=== PATIENT | male | born 1940 | race Caucasian/White ===

== ENCOUNTER → 2023-11-27 13:11 | Outpatient (REF) | payer MEDICARE, SELFPAY ==
[2023-11-27 14:06] LABS: Urine Albumin 3+ (Neg - Trace); Urine Bilirubin Negative (Negative); Urine Character Bloody (Clear); Urine Color Red; Urine Glucose Negative (Negative); Urine Ketone Negative (Negative); Urine Leukocyte 1+ (Negative); Urine Nitrite Negative (Negative); Urine Occult Blood 4+ (Negative); Urine Urobilinogen Negative (Neg - 1+)
[2023-11-27 14:15] LABS: Urine Red Blood Cell >100 /HPF (0-2)
== END ==
LOC: REG 13:11
PROVIDERS: ATTENDING PHYSICIAN Specialist; FAMILY PHYSICIAN Family Medicine; REFERRING PHYSICIAN Specialist
DX: N39.0 Urinary tract infection, site not specified (principal)
CPT/HCPCS: 81003; 81015

== ENCOUNTER 2023-12-19 06:31 | Day surgery (SDC) | payer MEDICARE, SELFPAY ==
[2023-12-11 13:39] VITALS: BMI 27.8
[2023-12-19] VITALS (11 sets, daily range): BP systolic 113–151; BP diastolic 55–73; BMI 27.8
[2023-12-19] MEDS: NORMOSOL-R 1000 IV (08:00)
== END 2023-12-19 11:48 | disposition home or self-care (01) ==
LOC: SDS 06:31
PROVIDERS: ATTENDING PHYSICIAN Specialist
DX: N13.1 Hydronephrosis with ureteral stricture, not elsewhere classified (principal); N18.6 End stage renal disease; C61 Malignant neoplasm of prostate; Z92.3 Personal history of irradiation
CPT/HCPCS: 52332; 74420; 76000; C2617; J1580

== ENCOUNTER 2023-12-20 17:57 | Inpatient (IN) | payer MEDICARE, SELFPAY ==
[2023-12-20 12:54] VITALS: BP 118/64
--- NOTE | 2023-12-20 14:53 | ED.GENMED ---
History of Present Illness
General
Chief Complaint: Fatigue
Source: patient and spouse
Exam Limitations: none
Time Seen by Provider: 12/20/23 14:51
Travel History
Have you had any contact with someone who has COVID-19?: No
Do you have any symptoms of coronavirus? Fever > 100 degrees, chills, cough, shortness of breath, sore throat, loss of taste or smell, muscle aches, or headache?: No
History of Present Illness
History of Present Illness:
Patient with a ureteral stent replaced yesterday. Received a dose of gentamicin periprocedurally. Developed fatigue weakness fever in the last 24 hours.
Past History
Past History
ED Past Medical History: Arrthythmia (Atrial fibrillation), Cancer (Metastatic prostate), HTN, Renal failure and Other (UTI, anemia, r ureteral fibrosis 2 XRT, Horseshoe kidney, Kidney stones)
ED Past Surgical History: Orthopedic (Right hip fracture), Urological (R ureteral stent 11/2020) and Other (AAA repair, Hiatel hernia repair ,Right fistula started)
Patient has exhibited threatening behavior?: No
PSI?: No
Social History
Tobacco: Former smoker
Alcohol: Occasional
Personal:
Living: with family
Family History
Family History: Other (Noncontributory)
Review of Systems
Review of Systems
All Other Systems: Not applicable
Constitutional: Reports fever, fatigue and chills
Respiratory: Reports cough (Chronic)
ABD/GI: Reports no symptoms
Phy Exam
Physical Exam
Physical Exam:
GENERAL: Alert and oriented in no apparent distress
EYE: Orbits normal.
NECK: Supple, no thyroid palpable
ENT: Pharynx without erythema
CARDIAC: Regular rate and rhythm without any obvious murmurs.
LUNGS: Clear breath sounds,normal
ABDOMEN: Soft, without focal tenderness or distention
NEUROLOGICAL: Alert and oriented , grossly non-focal
SKIN: Warm and dry, no rash or lesion, no discoloration, skin intact.
MUSCULOSKELETAL: No edema,no deformity.Good color. Shunt right arm. Good thrill
PSYCH: Normal and appropriate interaction.
Course
Orders/Labs/Results
Orders:
Orders
12/20/23 12:58
Electrocardiogram (*1) Urgent
Reason for Study: Other
Other Reason for Exam: syncope
12/20/23 12:59
EKG- Treatment ONCE
12/20/23 14:34
COVID-19 Antigen Urgent
Source: Nasal Swab
Influenza A+B Rapid Molecular Urgent
LORIE Source: Nasal Swab
Specimen Description:
12/20/23 14:52
Complete Blood Count/With Diff Urgent
Comprehensive Metabolic Panel Urgent
Lactic Acid Urgent
Blood Culture Urgent
LORIE Source: Blood/Venous
Specimen Description:
12/20/23 Dinner
Regular
At Your Request: Limited Participation
Does patient need a safe tray?: No
12/20/23 15:04
CXR2 [CR Chest - 2 Views ] Urgent
Comment:
Reason For Exam: cough fever
12/20/23 15:20
CT Abd/pel Without Iv Or Oral Urgent
Comment:
Reason For Exam: Recent right ureteral stent replacement. Fever.
12/20/23 15:36
Meropenem [Merrem] 1,000 mg IV NOW STA
12/20/23 15:51
Sterile Water [Sterile Water For Injection] 20 ml .ROUTE .STK-MED
12/20/23 17:11
Admit/Transfer Patient As Directed
Co-Sign Provider:
Level of Care: Inpatient admission
Assign to:: Telemetry
Physician / Group: [place]
Diagnosis: Syncope; UTI
Reason for Telemetry: Arrhythmia
Date to Stop Telemetry: 12/23/23
Time to Stop Telemetry: 11:00
Reason for Hospitalization: IV abx
Expected length of stay greater than two midnights?: Yes
ELOS- Estimated Length of Stay in days: 3
I certify the patient meets the requirements for IP care: Yes
12/20/23 17:19
Code Status As Directed
Resuscitation Status: Full Code
12/20/23 17:26
Urinalysis Reflex To Culture Urgent
Date Specimen was Collected: 12/20/23
Time Specimen was Collected: 17:24
Urine Microscopic Reflex Cult Urgent
Urine Culture Urgent
LORIE Source: U
Specimen Description:
Date Specimen was Collected: 12/20/23
Time Specimen was Collected: 17:24
12/20/23 17:43
Blood Culture Urgent
LORIE Source: Blood/Venous
Specimen Description:
12/20/23 17:48
Hemodialysis treatment As Directed
Treatment date:: 12/21/23
Treatment type: Hemodialysis
Ultrafiltration (kg): 0.5-1
Treatment time (duration): 3 hours 30 minutes
Use dialysis access:: AVF
Dialyzer:: Optiflux 160
Blood flow rate minimum: 350
Blood flow rate maximum: 400
Dialysis flow rate: 600 mL/min
Dialysate temperature: 37 degrees Celsius
Sodium (Na): 137
Potassium (K): 2
Calcium (Ca): 2.5
Bicarbonate (HCO3): 35
12/21/23 08:00
Albumin Human 25% 50 ml [Flexbumin 25% For Hemodialysis] 12.5 grams IV HD-Q1HPRN PRN
Mannitol 12.5 grams IV HD-Q1HPRN PRN
12/23/23 11:00
DC Protocol for Telemetry ONCE
Abnormal Lab Results
12/20/23 12/20/23
14:52 17:26
RBC 3.79 L 10^6/uL
(4.70-6.10)
Hgb 11.0 L g/dL
(13.0-18.0)
Hct 33.5 L %
(39.0-52.0)
MCHC 32.8 L g/dL
(33.0-37.0)
RDW 16.9 H %
(11.5-14.5)
Abs Immat Gran (auto) 0.2 H 10^3/uL
(0-0.05)
Absolute Neuts (auto) 6.6 H 10^3/uL
(1.4-6.5)
Absolute Lymphs (auto) 0.6 L 10^3/uL
(1.2-3.4)
Immature Gran % 2.0 H %
(0-0.5)
Neutrophils % 81.6 H %
(42.2-75.2)
Lymphocytes % 7.0 L %
(20.5-51.1)
Sodium 132 L mmol/L
(135-145)
Chloride 91 L mmol/L
(98-107)
BUN 34 H mg/dl
(9-20)
Creatinine 5.0 H* mg/dL
(0.7-1.3)
Glucose 124 H mg/dl
(70-99)
Lactic Acid 2.7 H mmol/L
(0.7-2.0)
Alkaline Phosphatase 163 H U/L
(38-126)
Ur Occult Blood Reflex 4+ A
(Negative)
Leukocyte Esterase Rfl 2+ A
(Negative)
Urine WBC (Reflex) >100 A /HPF
(0-5)
Urine Albumin (Reflex) 2+ A
(Neg - Trace)
12/20/23 14:52
12/20/23 14:52
Vital Signs
Initial and Last Documented VS:
Initial Vital Signs
Temp Pulse Resp BP Pulse Ox
99.2 F 103 20 118/64 97
12/20/23 12:54 12/20/23 12:54 12/20/23 12:54 12/20/23 12:54 12/20/23 12:54
Last Documented Vital Signs
Temp Pulse Resp BP Pulse Ox
99.8 F 91 16 131/61 95
12/20/23 15:19 12/20/23 17:27 12/20/23 17:27 12/20/23 17:27 12/20/23 17:27
*Radiology
Radiology exam reviewed: preliminary read by ED provider (Negative chest x-ray) and radiology read reviewed (Bilateral hydroureteronephrosis stent in position. No obstructing stone. Mild perinephric stranding)
*Pulse Oximetry
Patient hypoxic: no
*EKG
Interpreted by ED Provider?: Yes
Interpretation: abnormal
Comparison EKG: no changes
Heart Rate: 94
Rate: normal
Rhythm: sinus
Waterproof: left axis deviation
Interval: first degree heart block
QRS Pattern: normal QRS
Ischemia: no ischemia
*Critical Care Note
Total Time (30-74mins, 75-104mins- exclusive of procedures): Not Applicable
Data Reviewed
Review of Other/Old Records Reveals: Labs, Records, Operative Reports and Testing
Update Note
Update Note:
Discussed with urology and discussed with hospitalist
ED Attending Note
-
Portions of this chart may have been created with voice recognition software.� Occasional wrong word or��sound alike� substitutions may have occurred due to the inherent limitations of voice recognition software.
Discharge Plan
Departure
Patient Disposition: Admit
Date of Disposition: 12/20/23
Time of Disposition: 16:27
Presentation/result/management discussed w/ accepting MD/DO: Urology
Discharge Problem:
Possible early urosepsis, Recent ureteral stent replacement, History of renal failure
Interventions
Interventions:
*Risk Screen - Suicide Last Done: 12/20/23 12:54
*General Assessment Last Done: 12/20/23 12:54
*Neglect/Abuse Screening Last Done: 12/20/23 14:46
ED- Fall Risk Assessment Last Done: 12/20/23 15:30
*ED COVID-19 Vaccine History Last Done: 12/20/23 15:19
[2023-12-20 15:00] LABS: COVID-19 Antigen Negative (Negative)
[2023-12-20 15:11] LABS: % Basophils 0.7 % (0-2); % Monocytes 7.7 % (1.7-9.3); % Neutrophils 81.6 % (42.2-75.2); Absolute Basophils 0.1 10^3/uL (0-0.2); Absolute Eosinophils 0.1 10^3/uL (0-0.7); Absolute Immature Granulocytes 0.2 10^3/uL (0-0.05); Absolute Lymphocytes 0.6 10^3/uL (1.2-3.4); Absolute Monocytes 0.6 10^3/uL (0.1-0.6); Absolute Neutrophils 6.6 10^3/uL (1.4-6.5); Hematocrit 33.5 % (39.0-52.0); Mean Corp Hgb Conc. 32.8 g/dL (33.0-37.0); Mean Corpuscular Volume 88.4 fL (80.0-94.0); Mean Platelet Volume 10.3 fL (7.4-10.4); Nucleated Red Blood Cells % 0 % (-); Platelet Count 242 10^3/uL (130-400); Red Blood Cell Count 3.79 10^6/uL (4.70-6.10); Red Cell Dist. Width 16.9 % (11.5-14.5); White Blood Cell Count 8.1 10^3/uL (4.8-10.8)
[2023-12-20 15:14] LABS: Lactic Acid 2.7 mmol/L (0.7-2.0)
[2023-12-20 15:19] VITALS: BP 126/69
[2023-12-20 15:22] LABS: ALT (SGPT) 14 U/L (0-50); AST (SGOT) 20 U/L (17-59); Albumin 4.1 g/dl (3.5-5.0); Alkaline Phosphatase 163 U/L (38-126); Blood Urea Nitrogen 34 mg/dl (9-20); Calcium 8.8 mg/dl (8.4-10.2); Carbon Dioxide 28 mmol/L (22-30); Chloride 91 mmol/L (98-107); Glucose 124 mg/dl (70-99); Potassium 4.6 mmol/L (3.5-5.1); Sodium 132 mmol/L (135-145); Total Bilirubin 0.9 mg/dl (0.2-1.3); Total Protein 7.7 g/dl (6.3-8.2); eGFR 10.83
[2023-12-20] MEDS: MERREM 1000 MG IV (16:28)
[2023-12-20 17:27] VITALS: BP 131/61
--- NOTE | 2023-12-20 17:27 | HPS.HSE ---
Addendum entered and electronically signed by Gary Mathew MD 12/20/23 21:38:
I saw and examined the patient.
The STEF's note was reviewed and I agree with the note.
Comment:
83 y/o male with past medical history of metastatic prostate cancer s/p proctectomy and radiation, right ureteral stricture s/p right double-J stent yesterday (12/19/2023), ESRD on HD (Saturday, and Saturday), anemia of chronic disease,
recurrent UTIs, and atrial fibrillation who present to the ED today following a syncopal episode early this morning; patient had also had fever of 100.8 F at home. Patient says he was on the toilet when he passed out around the time he was
urinating. He admits to minimal oral intake yesterday following his procedure and did not each breakfast this morning. He denied abdominal pain, flank pain, and fever. He had dialysis on Saturday and Saturday, and is due tomorrow. His urologist
Jim advised him to go to the ER.
Vital Signs noted and are stable
Physical Exam
General: Not in acute distress
HEENT: Normocephalic
Respiratory: Clear to Auscultation Bilaterally
Cardiac: S1/S2 and Regular Rhythm
GI: Soft and Non Tender. Positive bowel sounds.
Musculoskeletal: No Cyanosis and No Edema
Skin: Warm and Dry
Neuro: Awake, Alert, Oriented and Nonfocal/grossly intact
Assessment/Plan
Fever at home-post Right Ureteral Stent Exchange
-Consulted Urology, recommendations appreciated
-Await urine and blood cultures
-Reviewed prior microbiology which revealed ESBL E. coli and Pseudomonas in the past - start Meropenem
Syncope, suspect volume depletion following OR procedure yesterday and fever (suspected possibly secondary to UTI)
-Give small amount of IVFs overnight
-Check orthostatic vital signs
-Monitor on telemetry
ESRD on HD
-Consult Nephrology, recommendations appreciated
Paroxysmal Atrial Fibrillation
-Continue Eliquis for anticoagulation
-Continue amiodarone
Chronic Hypotension
-Continue midodrine
DVT proph: Eliquis
Code Status: Full Code
Original Note:
Family Physician
-
Family Physician: Haile Mac
Chief Complaint
-
Fever and Syncope
History of Present Illness
Patient is an 83 y/o male with PMH of metastatic prostate cancer s/p proctectomy and radiation, right ureteral stricture s/p right double-J stent yesterday (12/19/2023), ESRD on HD, recurrent UTIs, and atrial fibrillation who present to the ED
today following a syncopal episode early this morning. Patient says he was on the toilet when he passed out. He says he did not have a bowel movement nor was he straining. He admits to minimal oral intake yesterday following his procedure and did
not each breakfast this morning. His reports elevated blood pressure and temperature of 100.8F at home. He denies abdominal pain, flank pain, and fever. He had dialysis on Saturday and Saturday, and is due tomorrow.
Medical History
Past Medical History
Past Medical History: Reports Other
Additional Past Medical History:
Paroxysmal atrial fibrillation
Chronic Hypotension
ESRD on HD
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
Anemia of chronic disease
Metastatic prostate cancer with metastasis to lymph nodes s/p radical prostatectomy and adjuvant hormonal and radiation therapy with history of radiation cystitis and radiation-induced ureteral strictures
Past Surgical History: Reports Other
Additional Past Surgical History:
Radical Prostatectomy
Hip Replacement
Right Kidney Stent
Right Hernia Repair
RUE AV Fistula
Social History
Tobacco: Non-smoker
Living: With Family
Family History
Family History: Not pertinent
Allergies / Home Medications
Allergies reflects when Allergies were last updated in [employer].
Home Medications with original date entered in [employer]
Allergy/Medication List:
Allergies
Allergy/AdvReac Type Severity Reaction Status Date / Time
iron [From Venofer] Allergy syncope/rigors Verified 12/20/23 12:54
'almost
passed out'
Home Medications
amiodarone 200 mg tablet 200 mg PO DAILY Arrhythmia 10/07/22
Lactobac no.2-Bifidobac no.1-S. thermo 112.5 billion cell capsule (Visbiome) 1 cap PO DAILY Gastrointestinal issue ##0 01/03/23
apixaban 2.5 mg tablet (Eliquis) 2.5 mg PO BID Blood clot prevention/tx #30 tabs 05/03/23
midodrine 10 mg tablet 10 mg PO TID Blood Pressure 08/22/23
guaifenesin 600 mg tablet, extended release 12 hr (Mucinex) 600 mg PO DAILYPRN PRN cough 12/16/23
esomeprazole magnesium 40 mg capsule,delayed release (Nexium) 40 mg PO DAILY 12/20/23
sennosides 8.6 mg-docusate sodium 50 mg tablet (Senna Plus) 1 tab-cap PO HS 12/20/23
sennosides 8.6 mg-docusate sodium 50 mg tablet (Senna Plus) 2 tab-cap PO DAILY 12/20/23
Review of Systems
-
A 12 point ROS was completed and negative except as noted: Yes
Constitutional: Reports Fever
Respiratory: Denies Cough or Trouble Breathing
Cardiac: Denies Chest Pain or Palpitations
Abdomen/GI: Denies Abdominal Pain, Nausea or Vomiting
Physical Exam
Vital Signs
Vital Signs
Temp Pulse Resp BP Pulse Ox
99.8 F 91 16 131/61 95
12/20/23 15:19 12/20/23 17:27 12/20/23 17:27 12/20/23 17:27 12/20/23 17:27
Physical Exam
General: No Apparent Distress and Comfortable
HEENT: Anicteric and Moist mucous membranes
Respiratory: Clear and Non Labored Respirations
Cardiac: S1/S2 and Regular Rhythm
GI: Soft and Non Tender
Rectal: Deferred by Provider
Genito-urinary: Other (No CVA tenderness)
Musculoskeletal: No Clubbing, No Cyanosis and No Edema
Skin: Warm and Dry
Neuro: Awake, Alert, Oriented and Nonfocal/grossly intact
Laboratory Results
-
12/20/23 14:52
12/20/23 14:52
Laboratory Results
Lactic Acid 2.7 mmol/L (0.7-2.0) H 12/20/23 14:52
Total Bilirubin 0.9 mg/dl (0.2-1.3) 12/20/23 14:52
AST 20 U/L (17-59) 12/20/23 14:52
ALT 14 U/L (0-50) 12/20/23 14:52
Alkaline Phosphatase 163 U/L (38-126) H 12/20/23 14:52
Data Reviewed
-
Lab Data: Labs Reviewed by me
Impression/Plan
-
Fever status-post Right Ureteral Stent Exchange
-Consult Urology
-Await urine and blood cultures
-Reviewed prior microbiology which revealed ESBL E. coli and Pseudomonas in the past - Start meropenum
Syncope, suspect volume depletion following OR procedure yesterday and fever
-Give small amount of IVFs overnight
-Check orthostatic vital signs
-Monitor on telemetry
ESRD on HD
-Consult Nephrology
Paroxysmal Atrial Fibrillation
-Continue Eliquis for anticoagulation
-Continue amiodarone
Chronic Hypotension
-Continue midodrine
DVT proph: Eliquis
Code Status: Full Code
--- NOTE | 2023-12-20 17:32 | W.CON.NEPH ---
Consultation
-
Date/Time Consultation Requested: 12/20/23 1700
Date/Time Consultation Performed: 12/20/23 1715
Requesting Provider: Gary Ching
Performing Provider: Diana Britton
Reason for Consultation: ESRD
Medical History
-
Chief Complaint: syncope
History of Present Illness:
�83-year-old male who dialyzes every Saturday, and Saturday at [facility]. He has a known history of anemia of chronic kidney disease and is maintained on LENIN therapy. He is chronically maintained on amiodarone and anticoagulated
with Eliquis for his paroxysmal AFib. He has a prior istory of prostate cancer and has undergone previous prostatectomy. He has a known history of an indwelling right ureteral stent, for which he intermittently undergoes exchange. He was electively
underwent right ureteral stent exchange yesterday and since procedure he was discharged home. noted him feeling weak and passed out for few secs in bathroom today hence brought him to the hospital. Reportedly he also had fever of 100.8F at
home. He denies any cp or sob, No abd pain or diarrhea. we were consulted for his end-stage renal disease management. His last HD was on Saturday, off schedule to fit the procedure. Scheduled to have HD tomorrow.
Past Medical History
1. ESRD, Saturday, , Saturday.
2. History of right ureteral stent with exchange.
3. Paroxysmal AFib.
4. Anemia.
5. Chronic hypotension with midodrine on dialysis.
6. History of prostate cancer with prostatectomy, XRT and hormonal
� � therapy.
7. History of ureteral reimplantation.
8. Radiation cystitis.
9. AAA repair in 2002.
10.Right total hip replacement.
11.History of horseshoe kidney with nephrolithiasis and chronic
� � hydro.
12.Right upper extremity AV fistula.
Past Surgical History: Other (multiple U stent exchanges , right UE AVF, AAA repair< prostatectomy )
Social History
Tobacco: Non-Smoker
Alcohol: None
Living: With Family
Employment: Retired
Family History
no CKD in family
Family History: Not Pertinent
Allergies / Home Medications
Allergy/AdvReac Type Severity Reaction Status Date / Time
iron [From Venofer] Allergy syncope/rigors Verified 12/20/23 12:54
'almost
passed out'
Medication Instructions Recorded Confirmed Type
amiodarone 200 mg tablet 200 mg PO DAILY Arrhythmia 10/07/22 12/20/23 History
Lactobac no.2-Bifidobac no.1-S. 1 cap PO DAILY Gastrointestinal 01/03/23 12/20/23 History
thermo 112.5 billion cell capsule issue ##0
(Visbiome)
apixaban 2.5 mg tablet (Eliquis) 2.5 mg PO BID Blood clot 05/03/23 12/20/23 Rx
prevention/tx #30 tabs
midodrine 10 mg tablet 10 mg PO TID Blood Pressure 08/22/23 12/20/23 History
guaifenesin 600 mg tablet, 600 mg PO DAILYPRN PRN cough 12/16/23 12/20/23 History
extended release 12 hr (Mucinex)
esomeprazole magnesium 40 mg 40 mg PO DAILY 12/20/23 12/20/23 History
capsule,delayed release (Nexium)
sennosides 8.6 mg-docusate sodium 1 tab-cap PO HS 12/20/23 12/20/23 History
50 mg tablet (Senna Plus)
sennosides 8.6 mg-docusate sodium 2 tab-cap PO DAILY 12/20/23 12/20/23 History
50 mg tablet (Senna Plus)
Physical Exam
Vital Signs
Vital Signs
Temp Pulse Resp BP Pulse Ox
99.8 F 91 16 131/61 95
12/20/23:19 12/20/23 17:27 12/20/23 17:27 12/20/23 17:27 12/20/23 17:27
Lab Results
WBC 8.1 10^3/uL (4.8-10.8) 12/20/23 14:52
RBC 3.79 10^6/uL (4.70-6.10) L 12/20/23 14:52
Hgb 11.0 g/dL (13.0-18.0) L 12/20/23 14:52
Hct 33.5 % (39.0-52.0) L 12/20/23 14:52
Plt Count 242 10^3/uL (130-400) 12/20/23 14:52
Sodium 132 mmol/L (135-145) L 12/20/23 14:52
Potassium 4.6 mmol/L (3.5-5.1) 12/20/23 14:52
Chloride 91 mmol/L (98-107) L 12/20/23 14:52
Carbon Dioxide 28 mmol/L (22-30) 12/20/23 14:52
BUN 34 mg/dl (9-20) H 12/20/23 14:52
Creatinine 5.0 mg/dL (0.7-1.3) H* 12/20/23 14:52
eGFR 10.83 12/20/23 14:52
Glucose 124 mg/dl (70-99) H 12/20/23 14:52
Calcium 8.8 mg/dl (8.4-10.2) 12/20/23 14:52
Albumin 4.1 g/dl (3.5-5.0) 12/20/23 14:52
CT abd /pelvis:
IMPRESSION:
1.� Horseshoe kidney with severe bilateral hydroureteronephrosis with right ureteral stent in position as described. No definite obstructing urinary calculi identified. Mild bilateral perinephric stranding and small focus of gas within the proximal
left renal collecting system may reflect upper urinary tract infection.
2. Mild to moderate diffuse colonic stool burden may reflect constipation.
3. Additional chronic changes as described.
Electronically signed by Jose Zhong 12/20/2023 4:15 PM
CXR:
FINDINGS:
Lungs: Stable bibasilar probable scarring. No convincing focal infiltrates. No pleural effusion or pneumothorax. Probable hiatal hernia redemonstrated.
Heart: Stable enlargement of the cardiomediastinal silhouette. No overt pulmonary vascular congestion.
Osseous structures: No acute abnormalities.
IMPRESSION:
No convincing acute cardiopulmonary process.
EKG:
SINUS RHYTHM WITH 1ST DEGREE A-V BLOCK
LEFT ANTERIOR FASCICULAR BLOCK
MINIMAL VOLTAGE CRITERIA FOR LVH, MAY BE NORMAL VARIANT ( R in aVL )
ABNORMAL ECG
WHEN COMPARED WITH ECG OF 11-DEC-2023 09:19,
NO SIGNIFICANT CHANGE WAS FOUND
�
Physical Exam
General: Awake, Alert, Oriented, AOx3, No Distress and Nontoxic
HEENT: EOMI and Anicteric
Respiratory: Clear, Normal Excursion and Nonlabored Respirations
Cardiac: S1/S2 and Regular Rate/Rhythm
Abdomen: Soft, Nontender and Nondistended
Musculoskeletal: No Cyanosis and No Edema
Skin: No Rash
Neuro: Nonfocal/Grossly Intact
Psych: Mood/afflect pleasant, Insight/judgement good and Appropriate
Assessment/Plan
-
Assessment:
Weakness, syncope on presentation
Fever [employer]
Right ureteral stent s/p exchange December 18
ESRD TTS at [facility]
PAF on anticoagulation and amiodarone
Anemia of CKD
Chronic hypotension requiring midodrine TID
History prostate cancer locally invasive with history prostatectomy/XRT/hormonal therapy
History ureteral reimplantation
Radiation cystitis
AAA repair 2002
Right total hip replacement
History of horseshoe kidney with nephrolithiasis and chronic hydronephrosis contributing to ESRD
Right upper extremity AV fistula
mild hyponatremia
Plan:
U stent exchange yesterday now presents with syncope and low grade fever
consulted,a bx per primary, known h/o ESBL E coli in the past
syncope-suspect post procedure, ok for gentle IVF tonight, Continue midodrine 10 mg TID
follow orthostatic, limit UF tomorrow
await for urine and Blood cultures
We will arrange hemodialysis tomorrow morning
d/w pt and primary
Data Reviewed
-
Radiology: Report Reviewed by me
CT Scan: Report Reviewed by me
Labs: Labs Reviewed by me
--- NOTE | 2023-12-20 17:34 | EDRN ---
Called [employer] to order green jello for pt for dinner - staff unable to provide until a diet order is placed. TT to provider to place a diet order.
[2023-12-20 17:37] LABS: Urine Albumin 2+ (Neg - Trace); Urine Bilirubin Negative (Negative); Urine Character Slightly Cloudy (Clear); Urine Color Yellow; Urine Glucose Negative (Negative); Urine Ketone Negative (Negative); Urine Leukocyte 2+ (Negative); Urine Nitrite Negative (Negative); Urine Occult Blood 4+ (Negative); Urine Urobilinogen Negative (Neg - 1+)
[2023-12-20 17:48] LABS: Urine Squamous Cell 0-2 /LPF (Few)
[2023-12-20 17:49] LABS: Urine White Cell >100 /HPF (0-5)
--- NOTE | 2023-12-20 17:59 | EDRN ---
Confirmed with [employer] diet order is seen and pt will get green jello for dinner
[2023-12-20 19:00] VITALS: BP 111/56
[2023-12-20 20:15] VITALS: BP 125/58; BP 131/61; BP 91/52; PULSE 102; PULSE 114; PULSE 94; BMI 27.1
[2023-12-20 20:31] VITALS: BMI 27.1
[2023-12-20] MEDS: NSS 1000 IV (20:38)
[2023-12-20] MEDS: ELIQUIS 2.5 MG PO (20:38)
[2023-12-20] MEDS: SENOKOT-S 1 TABLET PO (22:03)
[2023-12-20 23:33] VITALS: BP 110/56
[2023-12-21] VITALS (7 sets, daily range): BP systolic 91–145; BP diastolic 50–70; PULSE 77–112; BMI 27.0
[2023-12-21 07:48] LABS: Hematocrit 33.2 % (39.0-52.0); Hemoglobin 10.7 g/dL (13.0-18.0); Mean Corp Hgb Conc. 32.2 g/dL (33.0-37.0); Mean Corpuscular Hgb 28.4 pg (27.0-31.0); Mean Corpuscular Volume 88.1 fL (80.0-94.0); Platelet Count 226 10^3/uL (130-400); Red Blood Cell Count 3.77 10^6/uL (4.70-6.10); Red Cell Dist. Width 16.6 % (11.5-14.5); White Blood Cell Count 6.5 10^3/uL (4.8-10.8)
[2023-12-21 08:22] LABS: Blood Urea Nitrogen 41 mg/dl (9-20); Calcium 8.5 mg/dl (8.4-10.2); Carbon Dioxide 26 mmol/L (22-30); Chloride 94 mmol/L (98-107); Estimated Creatinine Clearance 9 ml/min; Glucose 99 mg/dl (70-99); Potassium 4.1 mmol/L (3.5-5.1); Sodium 131 mmol/L (135-145); eGFR 9.65
[2023-12-21] MEDS: PACERONE 200 MG PO (08:40)
[2023-12-21] MEDS: ProAmatine 10 MG PO ×3 (08:40→17:07)
[2023-12-21] MEDS: PROTONIX 40 MG PO (08:40)
[2023-12-21] MEDS: VISBIOME 1 CAP PO (08:40)
[2023-12-21] MEDS: ELIQUIS 2.5 MG PO ×2 (08:41→20:31)
[2023-12-21] MEDS: SENOKOT-S 2 TABLET PO (08:41)
--- NOTE | 2023-12-21 09:44 | W.PN.URO.CBU ---
Today's Communication / Plan
-
Await cultures
Expectant management
No need for imaging at this time
Assessment / Plan
-
Syncopal episode of unclear etiology 24 hours after right JJ stent exchange
No strong evidence of complicated UTI
Diagnosis
-
Date of Service: December 21, 2023
-
Patient Diagnosis:
Weakness and syncopal episode 25 hours after cystoscopy with right JJ stent exchange
History of advanced prostate cancer
Subjective
-
Feels fairly well today
No right flank pain
No nausea
No chills
Fatigue
Objective
-
Vital Signs
Temp Pulse Resp BP Pulse Ox
98.3 F 84 16 113/50 96
12/21/23 07:17 12/21/23 08:40 12/21/23 07:17 12/21/23 08:40 12/21/23 07:17
Intake and Output
12/20/23 12/21/23 12/22/23
06:59 06:59 06:59
Intake Total 970 / 970
Balance 970 / 970
Intake:
Oral fluids 420 / 420
IV fluids (Total) 550 / 550
Other:
How many times incontinent 1
MODERATE amount urine
How many times incontinent 1
SATURATED amount urine
Laboratory Results
12/21/23 07:29
12/21/23 07:29
Review of Systems
-
Constitutional: Fatigue
Respiratory: No Symptoms
Cardiac: No Symptoms
Abdomen/GI: No Symptoms
Neurological: No Symptoms
Physical Exam
-
General - well developed, well nourished, no acute distress
Abdomen - soft, non-tender, no CVAT
Skin - warm & dry with no rash
Neuro - AOx3, no motor deficits
--- NOTE | 2023-12-21 10:28 | W.PN.HOSP.TC ---
Today's Communication/Plan
-
History of ESBL E. coli in urine
Await urine and blood cultures
Orthostatic Hypotension - receive some IV fluids
Assessment / Plan
Assessment / Plan
Physical Exam
General: Not in acute distress
HEENT: Normocephalic
Respiratory: Clear to Auscultation Bilaterally
Cardiac: S1/S2 and Regular Rhythm
GI: Soft and Non Tender. Positive bowel sounds.
Musculoskeletal: No Cyanosis and No Edema
Skin: Warm and Dry
Neuro: Awake, Alert, Oriented and Nonfocal/grossly intact
Assessment/Plan
Fever at home-post Right Ureteral Stent Exchange
Known history of ESBL E. coli
-Consulted Urology, recommendations appreciated -- no need for imaging at this time, as per urology
-Await urine and blood cultures
-Reviewed prior microbiology which revealed ESBL E. coli and Pseudomonas in the past - start Meropenem
Syncope, suspect volume depletion following OR procedure yesterday and fever (suspected possibly secondary to UTI)
Orthostatic Hypotension
-Give small amount of IVFs overnight
-Check orthostatic vital signs
-Monitor on telemetry
-Echocardiogram
ESRD on HD
-Consult Nephrology, recommendations appreciated
Paroxysmal Atrial Fibrillation
-Continue Eliquis for anticoagulation
-Continue amiodarone
Chronic Hypotension
-Continue midodrine
DVT proph: Eliquis
Code Status: Full Code
Anticipated Discharge: > 48 hours
Subjective/Interval History
-
Date of Service: December 21, 2023
Patient was seen and examined. He denied any new symptoms or complaints and said he was doing okay.
Objective Data
-
Labs:
Laboratory Results
12/21/23
07:29
WBC 6.5
Hgb 10.7 L
Hct 33.2 L
Plt Count 226
Sodium 131 L
Potassium 4.1
Chloride 94 L
Carbon Dioxide 26
BUN 41 H
Creatinine 5.5 H*
Glucose 99
Calcium 8.5
Vital Signs:
Vital Signs
Temp Pulse Resp BP Pulse Ox
98.3 F 84 16 113/50 96
12/21/23 07:17 12/21/23 08:40 12/21/23 07:17 12/21/23 08:40 12/21/23 07:17
I&O
12/20/23 12/21/23 12/22/23
06:59 06:59 06:59
Intake Total 970 / 970
Balance 970 / 970
--- NOTE | 2023-12-21 12:49 | CM ---
Patient seen at bedside. patient stated that he had not had any changes to his past DME and physician PCP is the same, Dr. Mac. Patient still uses the [facility] in [place] and he has no past SNF history, patient does not remember the name
of the home health care that he had had previously and has also had home IV infusion, DME includes: a shower chair, r/s bars in the bathroom, & a stairglide
Pt is also on HD and is scheduled , , & at [facility]. Home is a 2 story home with one step to enter, and he lives with significant other. CM will continue to follow for discharge planning needs.
Plan; home with family, continue to follow with [facility] and will need to update them
[2023-12-21 13:13] LABS: Troponin I 0.013 ng/ml
--- NOTE | 2023-12-21 15:14 | W.PN.NEPH.HD ---
Assessment
-
pt seen during HD
vitals stable on midodrine
no sig wt gain, UF to bring to EDW
U cx neg, bld cx neg D1
abx per primary
AVF functions well
d/c IVF, neg orthostatics
Progress Note - Hemodialysis
-
Date of Service: December 21, 2023
Duration: 30 minutes and 3 hours
Potassium Bath: 3
Calcium Bath: 2.5
Opti-Dialyzer: 160
Ultrafiltration: Other (0.5-1kg)
Blood Flow: 400
Dialysate Flow: 600
Heparin: no
EPO: no
[2023-12-21] MEDS: DULCOLAX 10 MG RECTAL (17:42)
--- NOTE | 2023-12-21 18:42 | PTCARENOTE ---
Pt pulled cord in bathroom and was found with a moderate amount of bloody urine on the floor beneath him. Urology made aware, pt resting comfortably, no new orders at this time.
[2023-12-21 20:21] LABS: Troponin I < 0.012 ng/ml
[2023-12-21] MEDS: STERILE WATER FOR INJECTION 10 ML IV (20:31)
[2023-12-21] MEDS: MERREM 500 MG IV (20:31)
[2023-12-21] MEDS: SENOKOT-S 1 TABLET PO (21:58)
[2023-12-22] VITALS (7 sets, daily range): BP systolic 108–138; BP diastolic 48–66; PULSE 80–93; BMI 27.0; BMI 26.7
[2023-12-22 01:25] LABS: Troponin I 0.016 ng/ml
[2023-12-22 08:09] LABS: % Eosinophils 2.6 % (0-6); % Immature Granulocytes 3.7 % (0-0.5); % Lymphocytes 11.7 % (20.5-51.1); Absolute Basophils 0.1 10^3/uL (0-0.2); Absolute Eosinophils 0.2 10^3/uL (0-0.7); Absolute Immature Granulocytes 0.3 10^3/uL (0-0.05); Absolute Lymphocytes 0.9 10^3/uL (1.2-3.4); Absolute Monocytes 0.9 10^3/uL (0.1-0.6); Absolute Neutrophils 5.6 10^3/uL (1.4-6.5); Hematocrit 34.2 % (39.0-52.0); Mean Corp Hgb Conc. 32.2 g/dL (33.0-37.0); Mean Corpuscular Hgb 28.7 pg (27.0-31.0); Mean Corpuscular Volume 89.3 fL (80.0-94.0); Nucleated Red Blood Cells % 0 % (-); Platelet Count 231 10^3/uL (130-400); Red Blood Cell Count 3.83 10^6/uL (4.70-6.10); Red Cell Dist. Width 16.6 % (11.5-14.5); White Blood Cell Count 8.1 10^3/uL (4.8-10.8)
--- NOTE | 2023-12-22 08:37 | W.PN.URO.CBU ---
Today's Communication / Plan
-
Stable urologically
Ongoing evaluation of syncope
Will sign off
Assessment / Plan
-
Syncopal episode of unclear etiology 24 hours after right JJ stent exchange
No strong evidence of complicated UTI: urine and blood cultures negative
Diagnosis
-
Date of Service: December 22, 2023
-
Patient Diagnosis:
Weakness and syncopal episode 25 hours after cystoscopy with right JJ stent exchange
History of advanced prostate cancer
---
Blood and urine cultures negative
Subjective
-
No flank pain
No dysuria
Objective
-
Vital Signs
Temp Pulse Resp BP Pulse Ox
98.5 F 75 16 122/56 96
12/22/23 07:51 12/22/23 07:51 12/22/23 07:51 12/22/23 07:51 12/22/23 07:51
Intake and Output
12/21/23 12/22/23 12/23/23
06:59 06:59 06:59
Intake Total 970 / 970 1270 / 1270
Output Total 1000 / 1000
Balance 970 / 970 270 / 270
Intake:
Oral fluids 420 / 420 820 / 820
IV fluids (Total) 550 / 550 450 / 450
Output:
Urine, Voided 1000 / 1000
Other:
Number of approximated MODERATE 2
amounts of urine
How many times incontinent 1
MODERATE amount urine
How many times incontinent 1
SATURATED amount urine
Number of unmeasured liquid
stools
Rectum 1
Laboratory Results
12/22/23 07:55
Review of Systems
-
Constitutional: No Symptoms
Respiratory: No Symptoms
Cardiac: No Symptoms
Abdomen/GI: No Symptoms
: Bleeding
Neurological: No Symptoms
Physical Exam
-
General -no acute distress
Abdomen - soft, non-tender
Skin - warm & dry with no rash
Neuro - AOx3, no motor deficits
[2023-12-22] MEDS: SENOKOT-S 2 TABLET PO (08:50)
[2023-12-22] MEDS: PROTONIX 40 MG PO (08:50)
[2023-12-22] MEDS: VISBIOME 1 CAP PO (08:50)
[2023-12-22] MEDS: ELIQUIS 2.5 MG PO ×2 (08:50→19:50)
[2023-12-22] MEDS: ProAmatine 10 MG PO ×3 (08:51→17:17)
[2023-12-22] MEDS: PACERONE 200 MG PO (08:51)
[2023-12-22 08:59] LABS: Blood Urea Nitrogen 31 mg/dl (9-20); Calcium 8.9 mg/dl (8.4-10.2); Carbon Dioxide 28 mmol/L (22-30); Chloride 96 mmol/L (98-107); Estimated Creatinine Clearance 13 ml/min; Glucose 103 mg/dl (70-99); Potassium 4.1 mmol/L (3.5-5.1); Sodium 136 mmol/L (135-145); eGFR 15.54
--- NOTE | 2023-12-22 12:38 | CON.ID ---
Consultation
-
Date/Time Consultation Requested: 12/22/2023, 0741
Date/Time Consultation Performed: 12/22/2023, 1240
Requesting Provider: Dr. Gary Mathew
Performing Provider: Dr. Hansa Sheets
Reason for Consultation: Syncope, UA+ but Ucx neg
Chief Complaint / Past History
Chief Complaint
Passed out
History of Present Illness
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
stent exchange minerva 12/18. He received pre-op gentamicin and levofloxacin. He was discharged home same day. That evening he felt sleepy. The next morning he got up and sat on the toilet then passed out. He could not recall events. Reported temp
100.8. He denies dizziness, chills, or sweats. He came to ED 12/19. He was started on meropenem pending labs. Blood cx neg. Ucx neg. Pt reports BP drops when he stands up. He states he is drinking fluids.
Past History
Additional Past Medical History:
ESRD�HD via RUE AV fistula
HTN
Paroxysmal A-fib
Metastatic prostate cancer s/p rad prostatectomy, XRT and hormone therapy
Radiation cystitis
Horseshoe kidney
Nephrolithiasis/chronic obstructive uropathy with chronic right ureteral stent
Left ureteral stricture
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
AAA repair
Hiatal hernia repair
Right hip replacement s/p fall with fracture s/p revision/ORIF at [facility] (09/28)
Allergy History:
iron [From Venofer] Allergy (Verified 12/20/23 12:54)
syncope/rigors 'almost passed out'
Medications Reviewed: Yes
Current Antibiotics:
meropenem d3
Social History
Tobacco: Non-Smoker
Alcohol: None
Drug: None
Personal:
Living: With Family
Family History
Family History: Not Pertinent
Review of Systems
Review of Systems
General: Negative Chills
HEENT: Negative Headache or Pharyngitis
Respiratory: Negative Dyspnea or Cough
Gasteroenterology: Other (no diarrhea); Negative Nausea or Vomiting
Genital / Urological: Negative Dysuria or Flank Pain
Endocrine: Negative Weakness
Neurological: Negative Headache or Dizziness
All systems: All other systems were reviewed and were negative
Vital Signs
Temp Pulse Resp BP Pulse Ox
98.1 F 73 16 128/61 98
12/22/23 11:01 12/22/23 11:01 12/22/23 11:01 12/22/23 11:01 12/22/23 11:01
Physical Exam
Physical Exam
Constitutional: No Acute Distress and Comfortable
Eyes: No Conjunctival Hemorrhage and Sclera Anicteric
Cardiovascular: Regular Rate and S1/S2
Pulmonary: Clear
Gastrointestinal: Soft, Non Tender, Non Distended and Normal Bowel Sounds
Genito-Urinary: Negative CVA Tenderness
Extremities: Negative Edema
Neurological: AO x 3
Lab / Diagnostic Study Results
12/22/23 07:55
12/22/23 07:55
Abs Immat Gran (auto) 0.3 10^3/uL (0-0.05) H 12/22/23 07:55
Absolute Neuts (auto) 5.6 10^3/uL (1.4-6.5) 12/22/23 07:55
Absolute Lymphs (auto) 0.9 10^3/uL (1.2-3.4) L 12/22/23 07:55
Absolute Monos (auto) 0.9 10^3/uL (0.1-0.6) H 12/22/23 07:55
Absolute Basos (auto) 0.1 10^3/uL (0-0.2) 12/22/23 07:55
Immature Gran % 3.7 % (0-0.5) H 12/22/23 07:55
Neutrophils % 70.0 % (42.2-75.2) 12/22/23 07:55
Lymphocytes % 11.7 % (20.5-51.1) L 12/22/23 07:55
Monocytes % 11.0 % (1.7-9.3) H 12/22/23 07:55
Eosinophils % 2.6 % (0-6) 12/22/23 07:55
Basophils % 1.0 % (0-2) 12/22/23 07:55
Lactic Acid 2.7 mmol/L (0.7-2.0) H 12/20/23 14:52
Ur Squamous Epith Cells 0-2 /LPF (Few) 12/20/23 17:26
Microbiology Results
Micro:
12/20/23 20:36 MRSA Screen - Final
Nose No Methicillin Resistant Staphylococcus aureus isolated.
12/20/23 17:43 Blood Culture - Preliminary
Blood/Venous No Growth in 24 hours- Final report to follow
12/20/23 14:52 Blood Culture - Preliminary
Blood/Venous No Growth in 24 hours- Final report to follow
12/20/23 17:26 Urine Culture - Final
Urine NO GROWTH
12/20/23 14:34 Influenza Types A & B (MONAE) - Final
Nasal Swab Negative for Influenza A & B, NAAT
Negative results must be combined with clinical observations
and patient history.
Nucleic Acid Amplification test (NAAT)performed on the
[employer] platform.
12/20/23 CT a/p: Horseshoe kidney with severe bilateral hydroureteronephrosis with right ureteral stent in position as described. No definite obstructing urinary calculi identified. Mild bilateral perinephric stranding and small focus of gas within
the proximal left renal collecting system may reflect upper urinary tract infection.
Assessment / Plan
# Pyuria - does not equate UTI.
# Post-right ureter stent exchange 12/18.
- Bacteremia ruled out.
-Ucx neg.
-DC meropenem.
# Syncope
-Work up as per hospitalist.
ID will sign off.
--- NOTE | 2023-12-22 12:45 | W.PN.NEPH.PH ---
Today's Communication / Plan
-
gentle IVF
Assessment/Plan
-
Assessment:
Weakness, syncope on presentation
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
Right ureteral stent s/p exchange December 18
ESRD TTS at [facility]
PAF on anticoagulation and amiodarone
Anemia of CKD
Chronic hypotension requiring midodrine TID
History prostate cancer locally invasive with history prostatectomy/XRT/hormonal therapy
History ureteral reimplantation
Radiation cystitis
AAA repair 2002
Right total hip replacement
History of horseshoe kidney with nephrolithiasis and chronic hydronephrosis contributing to ESRD
Right upper extremity AV fistula
mild hyponatremia
Plan:
U stent exchange 12/18 presents with syncope and low grade fever
cultures so far are negative , abx per primary
fell in the bathroom and noted +orthostatic
will likely need to raise EDW
give gentle IVF NS 500cc
recheck ortho vitals tomorrow , cont high dose midodrine
If orthostatic improve likely d/c tomorrow
d/w pt
-
-
Date of Service: December 22, 2023
CC / HPI / ROS
-
Chief Complaint:
ESRD
History of Present Illness:
competed HD yesterday
fell in the bathroom not sure if has LOC
+orthostatic but denies any prodromal symp
Review of Systems:
no n/v
no cp or sob
Labs
-
Labs:
WBC 8.1 10^3/uL (4.8-10.8) 12/22/23 07:55
RBC 3.83 10^6/uL (4.70-6.10) L 12/22/23 07:55
Hgb 11.0 g/dL (13.0-18.0) L 12/22/23 07:55
Hct 34.2 % (39.0-52.0) L 12/22/23 07:55
Plt Count 231 10^3/uL (130-400) 12/22/23 07:55
Sodium 136 mmol/L (135-145) 12/22/23 07:55
Potassium 4.1 mmol/L (3.5-5.1) 12/22/23 07:55
Chloride 96 mmol/L (98-107) L 12/22/23 07:55
Carbon Dioxide 28 mmol/L (22-30) 12/22/23 07:55
BUN 31 mg/dl (9-20) H 12/22/23 07:55
Creatinine 3.7 mg/dL (0.7-1.3) H 12/22/23 07:55
eGFR 15.54 12/22/23 07:55
Glucose 103 mg/dl (70-99) H 12/22/23 07:55
Calcium 8.9 mg/dl (8.4-10.2) 12/22/23 07:55
Albumin 4.1 g/dl (3.5-5.0) 12/20/23 14:52
Physical Exam
-
Vital Signs:
Vital Signs
Temp Pulse Resp BP Pulse Ox
98.1 F 73 16 128/61 98
12/22/23 11:01 12/22/23 11:01 12/22/23 11:01 12/22/23 11:01 12/22/23 11:01
Cardiovascular:: Regular rate and rhythm
Respiratory:: Bilateral: CTA
Lung Excursion:: Normal
Abdomen:: Nontender and Soft
Extremity Edema:: None: Bilateral:
Brewster Catheter: No
[2023-12-22] MEDS: NSS 500 IV (12:54)
--- NOTE | 2023-12-22 17:41 | W.PN.HOSP.TC ---
Addendum entered and electronically signed by Gary Mathew MD 12/22/23 18:01:
Nurse just texted me saying that patient used his bedside commode yesterday, did not walk to the bathroom - he had used the toilet during day shift yesterday and nurse at that time found him straining on the toilet with bloody urine output --
patient was never found to have fallen on the floor.
Original Note:
Today's Communication/Plan
-
Patient slid off toilet and slid onto the floor last night
Bloody urine reported on nurse note at the time of that sliding onto the floor -- check FOBT and UA
Additional gentle IV fluids for orthostatic hypotension
Assessment / Plan
Assessment / Plan
Physical Exam
General: Not in acute distress
HEENT: Normocephalic
Respiratory: Clear to Auscultation Bilaterally
Cardiac: S1/S2 and Regular Rhythm
GI: Soft and Non Tender. Positive bowel sounds.
Musculoskeletal: No Cyanosis and No Edema
Skin: Warm and Dry
Neuro: Awake, Alert, Oriented and Nonfocal/grossly intact
Assessment/Plan
Fever at home-post Right Ureteral Stent Exchange
Known history of ESBL E. coli
-Consulted Urology, recommendations appreciated -- no need for imaging at this time, as per urology
-ID consulted, recommendations appreciated
-Urine culture with no growth
-Blood culture with no growth so far
-Merrem discontinued
-Reviewed prior microbiology which revealed ESBL E. coli and Pseudomonas in the past
Syncope, suspect volume depletion following OR procedure yesterday and fever (suspected possibly secondary to UTI)
Orthostatic Hypotension
Patient sliding onto floor on December 21, 2023 evening
-Additional gentle IVF NS 500cc on December 22, 2023
-Recheck orthostatic vital signs on December 22, 2023 -- if improves, then can discharge
-Monitor on telemetry
-Echocardiogram pending
Bloody Urine reported on nurse note from December 21, 2023
-Check repeat UA and fecal occult
ESRD on HD
-Consult Nephrology, recommendations appreciated
Paroxysmal Atrial Fibrillation
-Continue Eliquis for anticoagulation
-Continue amiodarone
Chronic Hypotension
-Continue midodrine
DVT proph: Eliquis
Code Status: Full Code
Anticipated Discharge: 24 - 48 hours
Subjective/Interval History
-
Date of Service: December 22, 2023
Patient was seen and examined. Last night he reported sliding down onto the bathroom floor from the toilet and reportedly there was some bloody urine on the floor. He is not sure whether he passed out. Nurse reported he may have been straining in
the toilet but patient denied straining.
Objective Data
-
Labs:
Laboratory Results
12/22/23
07:55
WBC 8.1
Hgb 11.0 L
Hct 34.2 L
Plt Count 231
Sodium 136
Potassium 4.1
Chloride 96 L
Carbon Dioxide 28
BUN 31 H
Creatinine 3.7 H
Glucose 103 H
Calcium 8.9
Vital Signs:
Vital Signs
Temp Pulse Resp BP Pulse Ox
98.7 F 71 16 110/48 98
12/22/23 15:01 12/22/23 17:17 12/22/23 15:01 12/22/23 17:17 12/22/23 15:01
I&O
12/21/23 12/22/23 12/23/23
06:59 06:59 06:59
Intake Total 970 / 970 1270 / 1270
Output Total 1000 / 1000
Balance 970 / 970 270 / 270
[2023-12-22] MEDS: STERILE WATER FOR INJECTION IV (19:50)
[2023-12-22 20:11] LABS: Urine Albumin 2+ (Neg - Trace); Urine Bilirubin Negative (Negative); Urine Character Very Cloudy (Clear); Urine Color Yellow; Urine Glucose Negative (Negative); Urine Ketone Negative (Negative); Urine Leukocyte 2+ (Negative); Urine Nitrite Negative (Negative); Urine Occult Blood 4+ (Negative); Urine Specific Gravity 1.015 (<1.030); Urine Urobilinogen Negative (Neg - 1+)
[2023-12-22 20:22] LABS: Urine White Cell >100 /HPF (0-5)
[2023-12-22] MEDS: SENOKOT-S 1 TABLET PO (21:45)
[2023-12-23 03:43] VITALS: BP 119/54
[2023-12-23 06:00] VITALS: BMI 26.9
[2023-12-23 07:17] LABS: Hematocrit 29.9 % (39.0-52.0); Hemoglobin 9.5 g/dL (13.0-18.0); Mean Corp Hgb Conc. 31.8 g/dL (33.0-37.0); Mean Corpuscular Hgb 28.6 pg (27.0-31.0); Mean Corpuscular Volume 90.1 fL (80.0-94.0); Mean Platelet Volume 10.6 fL (7.4-10.4); Platelet Count 245 10^3/uL (130-400); Red Blood Cell Count 3.32 10^6/uL (4.70-6.10); Red Cell Dist. Width 16.5 % (11.5-14.5); White Blood Cell Count 6.9 10^3/uL (4.8-10.8)
[2023-12-23 07:49] VITALS: BP 120/51
[2023-12-23] MEDS: PROTONIX 40 MG PO (08:04)
[2023-12-23] MEDS: SENOKOT-S 2 TABLET PO (08:05)
[2023-12-23] MEDS: VISBIOME 1 CAP PO (08:05)
[2023-12-23] MEDS: ELIQUIS 2.5 MG PO (08:05)
[2023-12-23] MEDS: PACERONE 200 MG PO (08:05)
[2023-12-23] MEDS: ProAmatine 10 MG PO ×2 (08:06→12:33)
[2023-12-23 08:08] LABS: Blood Urea Nitrogen 39 mg/dl (9-20); Calcium 8.2 mg/dl (8.4-10.2); Carbon Dioxide 26 mmol/L (22-30); Chloride 100 mmol/L (98-107); Estimated Creatinine Clearance 10 ml/min; Glucose 85 mg/dl (70-99); Potassium 4.1 mmol/L (3.5-5.1); Sodium 134 mmol/L (135-145); eGFR 11.09
[2023-12-23 08:13] VITALS: BP 114/64; BP 121/61; BP 134/63; PULSE 70; PULSE 75; PULSE 90
[2023-12-23 08:23] LABS: Cortisol, Random 18.3 ug/dl
--- NOTE | 2023-12-23 10:44 | W.PN.NEPH.PH ---
Today's Communication / Plan
-
likley discharge today
will raise edw by 1kg
maintain midodrine
Assessment/Plan
-
Assessment:
Weakness, syncope on presentation
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
Right ureteral stent s/p exchange December 18
ESRD TTS at [facility]
PAF on anticoagulation and amiodarone
Anemia of CKD
Chronic hypotension requiring midodrine TID
History prostate cancer locally invasive with history prostatectomy/XRT/hormonal therapy
History ureteral reimplantation
Radiation cystitis
AAA repair 2002
Right total hip replacement
History of horseshoe kidney with nephrolithiasis and chronic hydronephrosis contributing to ESRD
Right upper extremity AV fistula
mild hyponatremia
Plan:
Ureter stent exchange 12/18 presents with syncope and low grade fever
cultures so far are negative , abx per primary
fell in the bathroom and noted +orthostatic
will need to raise EDW by 1kg as outpatient
continue high dose midodrine
likley discharge today if echo ok
-
-
Date of Service: December 23, 2023
CC / HPI / ROS
-
Chief Complaint:
ESRD
History of Present Illness:
competed HD saturday
no falls today
+orthostatic but denies any prodromal symp
Review of Systems:
no n/v
no cp or sob
Labs
-
Labs:
WBC 6.9 10^3/uL (4.8-10.8) 12/23/23 05:27
RBC 3.32 10^6/uL (4.70-6.10) L 12/23/23 05:27
Hgb 9.5 g/dL (13.0-18.0) L 12/23/23 05:27
Hct 29.9 % (39.0-52.0) L 12/23/23 05:27
Plt Count 245 10^3/uL (130-400) 12/23/23 05:27
Sodium 134 mmol/L (135-145) L 12/23/23 05:27
Potassium 4.1 mmol/L (3.5-5.1) 12/23/23 05:27
Chloride 100 mmol/L (98-107) 12/23/23 05:27
Carbon Dioxide 26 mmol/L (22-30) 12/23/23 05:27
BUN 39 mg/dl (9-20) H 12/23/23 05:27
Creatinine 4.9 mg/dL (0.7-1.3) H* 12/23/23 05:27
eGFR 11.09 12/23/23 05:27
Glucose 85 mg/dl (70-99) 12/23/23 05:27
Calcium 8.2 mg/dl (8.4-10.2) L 12/23/23 05:27
Albumin 4.1 g/dl (3.5-5.0) 12/20/23 14:52
Physical Exam
-
Vital Signs:
Vital Signs
Temp Pulse Resp BP Pulse Ox
97.9 F 66 16 120/51 97
12/23/23 07:49 12/23/23 08:06 12/23/23 07:49 12/23/23 08:06 12/23/23 07:49
Cardiovascular:: Regular rate and rhythm
Respiratory:: Bilateral: CTA
Lung Excursion:: Normal
Abdomen:: Nontender
Bowel Sounds:: Normal
Extremity Edema:: None: Bilateral:
Brewster Catheter: No
--- NOTE | 2023-12-23 10:49 | W.PN.HOSP.TC ---
Addendum entered and electronically signed by Padmaja Piper MD 12/23/23 15:43:
Addendum
Result of echocardiogram was shown to the and patient. No significant changes from prior echocardiogram. Patient was seen by lag screwer, okay for discharge
Total discharge time spent to see the patient, examine the patient on the floor, review data and lab results, discuss discharge plan with the patient, nursing staff around 65 minutes
Original Note:
Today's Communication/Plan
-
.
Assessment / Plan
Assessment / Plan
Physical Exam
General: Not in acute distress
HEENT: Normocephalic
Respiratory: Clear to Auscultation Bilaterally
Cardiac: S1/S2 and Regular Rhythm
GI: Soft and Non Tender. Positive bowel sounds.
Musculoskeletal: No Cyanosis and No Edema
Skin: Warm and Dry
Neuro: Awake, Alert, Oriented and Nonfocal/grossly intact
Assessment/Plan
Fever at home-post Right Ureteral Stent Exchange
Known history of ESBL E. coli
-Consulted Urology, recommendations appreciated -- no need for imaging at this time, as per urology
-ID consulted, recommendations appreciated
-Urine culture with no growth
-Blood culture with no growth so far
-Merrem discontinued
-Reviewed prior microbiology which revealed ESBL E. coli and Pseudomonas in the past
Syncope, suspect volume depletion following OR procedure yesterday and fever (suspected possibly secondary to UTI)
Orthostatic Hypotension
Patient sliding onto floor on December 21, 2023 evening
-Additional gentle IVF NS 500cc on December 22, 2023
-Recheck orthostatic vital signs on December 22, 2023 -- if improves, then can discharge
-Monitor on telemetry
-Echocardiogram pending
Bloody Urine reported on nurse note from December 21, 2023
-Check repeat UA and fecal occult
ESRD on HD
-Consult Nephrology, recommendations appreciated
Paroxysmal Atrial Fibrillation
-Continue Eliquis for anticoagulation
-Continue amiodarone
Chronic Hypotension
-Continue midodrine
DVT proph: Eliquis
Code Status: Full Code
�Total time spent to see the patient, examine the patient on the floor, review data and lab results, discuss treatment plan with the patient, nursing staff around 55 minutes
Anticipated Discharge: Within 24 hours
Subjective/Interval History
-
Date of Service: December 23, 2023
No chest pain
No sob
Objective Data
-
Labs:
Laboratory Results
12/23/23
05:27
WBC 6.9
Hgb 9.5 L
Hct 29.9 L
Plt Count 245
Sodium 134 L
Potassium 4.1
Chloride 100
Carbon Dioxide 26
BUN 39 H
Creatinine 4.9 H*
Glucose 85
Calcium 8.2 L
Vital Signs:
Vital Signs
Temp Pulse Resp BP Pulse Ox
97.9 F 66 16 120/51 97
12/23/23 07:49 12/23/23 08:06 12/23/23 07:49 12/23/23 08:06 12/23/23 07:49
I&O
12/22/23 12/23/23 12/24/23
06:59 06:59 06:59
Intake Total 1270 / 1270 1080 / 1080
Output Total 1000 / 1000
Balance 270 / 270 1080 / 1080
[2023-12-23 11:18] VITALS: BP 131/58
--- NOTE | 2023-12-23 11:38 | PTOTSP ---
Attempted to see pt in rm [id number] for evaluation. Pt was awake in bed, and s.o. was present. Both declined PT evaluation, stating he 'is fine and waiting to go home. I don't want to waste your time.' Attempted to explain the purpose of PT eval in the
hospital but both continue to decline any need and had no concerns for discharge. PT agreed to sign off.
--- NOTE | 2023-12-23 15:28 | CM ---
Reviewed the chart notes and spoke with the patient at the bedside. IMM discussed and copy placed on the chart. Patient is being discharged today to home with no needs being identified at this time. CM continues to be available to patient/family
and is monitoring medical plan for needs at discharge.
Plan: Discharge to home today. Patient significant other will provide transportation.
--- NOTE | 2023-12-23 15:36 | W.DCSUMMARY ---
Discharge Summary
Discharge Data
Date of Admission: 12/20/23
Date of Discharge: 12/23/23
-
Pending Results: No
Hospital Course
83 years old male with history of chronic kidney disease on hemodialysis who presented to the hospital with syncopal episode. Patient had undergone elective right ureteral stent exchange the day before. Patient reported history of syncopal
episodes in the past and chronic history of orthostatic hypotension. Patient was taking his midodrine regularly. Patient was evaluated by urologist. No complications related to the stent placement. He was given empiric antibiotics. Blood
culture showed no growth. Urine culture did not show growth. He was also evaluated by infectious diseases business sales consultant. Patient had pyuria but did not have urinary tract infection. Patient underwent dialysis without complications and he was
followed by application architect manager. Repeat orthostatic vital signs checked did not show significant hypotension. He was able to ambulate without significant dizziness or headache. Patient had echocardiogram that showed left ventricular ejection fraction 55
to 60% with no significant changes from a prior echocardiogram in 2022. Patient remained hemodynamically stable. Patient was discharged home in a stable condition.
Discharge Plan
-
Patient Disposition: Home (Routine Discharge)
Discharge Diagnosis/Procedures: Orthostatic hypotension/syncopal episodes
Diet: As tolerated
Referrals:
Haile Mac DO [Family Provider] - in one to two weeks
Prescriptions:
Continued
amiodarone 200 mg Tablet
200 mg PO DAILY
Visbiome 112.5 billion cell Capsule
1 cap PO DAILY Qty: 0
Eliquis 2.5 MG tablet
2.5 mg PO BID Qty: 30 0RF
Patient Comments:
12/20/23- patient currently recieving free samples
midodrine 10 mg tablet
10 mg PO TID
guaifenesin [Mucinex] 600 mg Tablet Extended Release 12hr
600 mg PO DAILYPRN PRN (Reason: cough)
esomeprazole magnesium [Nexium] 40 mg Capsule,Delayed Release(Dr/Ec)
40 mg PO DAILY
sennosides-docusate sodium [Senna Plus] 8.6-50 mg Tablet
1 tab-cap PO HS
sennosides-docusate sodium [Senna Plus] 8.6-50 mg Tablet
2 tab-cap PO DAILY
Discharge Orders:
Discharge Patient (As Directed); Ordered 12/23/23
Ordered By: Padmaja Piper
[2023-12-23 15:42] VITALS: BP 131/57
--- NOTE | 2023-12-24 10:19 | PN.CDI ---
Addendum entered and electronically signed by Padmaja Piper MD 12/24/23 10:32:
Stage 1 pressure ulcer middle sacrum'
Original Note:
CDI
- -
CDI:
Physician Documentation Request
Admit Date: 12/20/23 17:57
Dear Doctor Veronique,
Patient admitted for fever.
Nursing documentation 12/19-12/22: 'Stage 1 pressure ulcer middle sacrum'
Physician documentation of the type and location of wounds is required for compliant documentation. Based on the above clinical findings and your assessment, please provide the following in your progress note:
1. Location of the ulcer/wound, including laterality.
2. Type (etiology) of ulcer/wound:
- Diabetic ulcer
- Arterial (ischemic) ulcer
- Traumatic wound
- Venous stasis ulcer
- Pressure (decubitus) ulcer
- Non-healing surgical wound
- Other
- Unable to determine
3. For a non-pressure ulcer, please indicate the depth/severity:
- Limited to the breakdown of skin
- With fat layer exposed
- With necrosis of muscle
- With necrosis of bone
- Other
- Unable to determine
4. If a pressure ulcer, please also include the stage* of the ulcer:
- Stage 1 - Skin intact, non-blanchable redness
- Stage 2 - Partial thickness loss of dermis, includes intact or open blister
- Stage 3 - Full thickness tissue not including bone, tendon or muscle
- Stage 4 - Full thickness tissue loss, including exposed bone, tendon or muscle
- Unstageable - Full thickness loss in which the base of the ulcer is covered by slough (yellow, hawley, campbell, green or brown) and/or eschar (hawley, brown or black) in the wound bed.
- Unable to determine
Use of terms such as suspected, likely, concern for, or probable (associated with a specific diagnosis that is being evaluated, monitored, or treated as if it exists) are acceptable and can be coded in the inpatient setting, when documented at the
time of discharge.
Thank you,
Shannan Tolbert RN, BSN
CDI Specialist
Available via [employer] text
Please use your independent medical judgment in providing your response.
*Source: National Pressure Ulcer Advisory Panel (NPUAP)
== END 2023-12-23 16:41 | disposition home or self-care (01) | DRG 689 ==
LOC: 2 NORTH 17:57
PROVIDERS: Emergency Medicine; Physician Assistant Medical; ADMITTING PHYSICIAN Hospitalist; ATTENDING PHYSICIAN Internal Medicine; CONSULT PHYSICIAN Internal Medicine; CONSULT PHYSICIAN Internal Medicine Infectious Disease; CONSULT PHYSICIAN Specialist; EMERGENCY PHYSICIAN Emergency Medicine; FAMILY PHYSICIAN Family Medicine
PROC: 5A1D70Z Performance of Urinary Filtration, Intermittent, Less than 6 Hours Per Day (ICD-10-PCS; 2023-12-21)
DX: N39.0 Urinary tract infection, site not specified (principal); N18.6 End stage renal disease; I12.0 Hypertensive chronic kidney disease with stage 5 chronic kidney disease or end stage renal disease; I95.1 Orthostatic hypotension; I48.0 Paroxysmal atrial fibrillation; L89.151 Pressure ulcer of sacral region, stage 1; Z79.01 Long term (current) use of anticoagulants; Z85.46 Personal history of malignant neoplasm of prostate; Z99.2 Dependence on renal dialysis
CPT/HCPCS: 71046; 74176; 74420; 76000; 80048; 80053; 81003; 81015; 82533; 83605; 84484; 85025; 85027; 87040; 87070; 87086; 87502; 87811; 93005; 93306; 96374; 99285; C2617; G0257; J1580; J2185; P9047

== ENCOUNTER → 2024-03-30 11:14 | Outpatient (REF) | payer MEDICARE, SELFPAY | LOC: REG 11:14 | PROVIDERS: ATTENDING PHYSICIAN Specialist; FAMILY PHYSICIAN Family Medicine | DX: N39.0 Urinary tract infection, site not specified (principal) | CPT/HCPCS: 87086 ==

== ENCOUNTER 2024-04-23 06:23 | Day surgery (SDC) | payer MEDICARE, SELFPAY ==
[2024-04-13 08:00] VITALS: BMI 28.2
[2024-04-23] VITALS (10 sets, daily range): BP systolic 104–134; BP diastolic 50–61; BMI 28.2
[2024-04-23] MEDS: NORMOSOL-R 1000 IV (09:35)
[2024-04-23] MEDS: VANCOCIN 200 IV (09:35)
--- NOTE | 2024-04-23 11:10 | W.PN.URO.CBU ---
Today's Communication / Plan
-
have id who are consiulted give antibiotic orders and suhggestions for home po abs also hospiatlist for comorbidituies
Assessment / Plan
-
p[t with long standing h/o sepsis post jj stent changes will admit for iv ands and monitoring id and hos[yane;list comsulted for input
Diagnosis
-
Date of Service: April 23, 2024
-
Patient Diagnosis:rt uretral obstruction now s/p rt jj stent exchange p[t h/o sepsi and has bacteruria
Post Op Day:
Subjective
-
no fevr chills
Objective
-
Vital Signs
Temp Pulse Resp BP Pulse Ox
98 F 70 16 134/61 99
04/23/24 09:05 04/23/24 09:05 04/23/24 09:05 04/23/24 09:05 04/23/24 09:05
Review of Systems
-
: Difficulty Voiding and Dark Urine
Physical Exam
-
General - well developed, well nourished, no acute distress
Chest - clear bilaterally
Abdomen - soft, non-tender, positive bowel sounds, no CVAT, no incisional pain or distention
Genitalia - normal
Rectal - normal
Skin - warm & dry with no rash
Neuro - AOx3, no motor deficits
Extremities - no clubbing, no cyanosis, no edema
Incision - clean, dry
Dressing - clean, dry, intact
Care Review
Data Reviewed
Discussed with: Infectious Disease and Hospitalist
--- NOTE | 2024-04-23 14:10 | CON.ID ---
Consultation
-
Date/Time Consultation Requested: 04/23/2024 1108
Date/Time Consultation Performed: 04/23/2024 1340
Requesting Provider: Dr. Fernandez
Performing Provider: Dr. Benedict
Reason for Consultation: Hx UTI; current stent exchange
Chief Complaint / Past History
History of Present Illness
Flakito Youssef is an 84-year-old man being evaluated at request of Dr. Fernandez in regards to any necessary antibiotics needed in the context of a stent exchange. History is obtained from chart review, along with patient interview.
The patient has a significant past medical history of metastatic prostate cancer s/p red prostatectomy, XRT and hormone therapy. Additionally, he has ESRD-HD, nephrolithiasis/chronic obstructive uropathy, with a chronic right ureteral stent. Prior
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 His last ureteral stent exchange was on 12/18, and he presents to the hospital today for an additional stent exchange.
He overall has been feeling well. He denies any recent urinary symptomatology (no burning or dysuria). He reports that he does continue to make urine, although he is not sure of the amount per day. He has received 2 doses of levofloxacin over the
past 2 days. Additionally, he received vancomycin and gentamicin prior to his procedure today.
Past History
Additional Past Medical History:
ESRD�HD via RUE AV fistula
HTN
Paroxysmal A-fib
Metastatic prostate cancer s/p rad prostatectomy, XRT and hormone therapy
Radiation cystitis
Horseshoe kidney
Nephrolithiasis/chronic obstructive uropathy with chronic right ureteral stent
Left ureteral stricture
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
AAA repair
Hiatal hernia repair
Right hip replacement s/p fall with fracture s/p revision/ORIF at [facility] (09/28)
Allergy History:
iron [From Venofer] Allergy (Verified 04/23/24 09:00)
syncope/rigors 'almost passed out'
Medications Reviewed: Yes
Current Antibiotics:
Preop vancomycin and gentamicin
Social History
Tobacco: Non-Smoker
Alcohol: None
Drug: None
Personal:
Living: With Family
Family History
Family History: Not Pertinent
Review of Systems
Vital Signs
Temp Pulse Resp BP Pulse Ox
98.3 F 81 16 130/61 98
04/23/24 13:30 04/23/24 13:30 04/23/24 13:30 04/23/24 13:30 04/23/24 13:30
Physical Exam
Physical Exam
Constitutional: No Acute Distress, Comfortable and Non-toxic
Eyes: Pupils Equal, Pupils Round, No Conjunctival Hemorrhage and Sclera Anicteric
Oral: No Thrush and No Ulcers
Cardiovascular: Regular Rate and S1/S2; Negative S3/S4
Pulmonary: Clear; Negative Wheezes, Rales or Rhonchi
Gastrointestinal: Soft, Non Tender, Non Distended, Normal Bowel Sounds, No Rebound and No Guarding
Extremities: Negative Edema, Cyanosis or Erythema
Skin: Negative Rash or Jaundice
Neurological: Awake and Alert
Psychological: Calm
Microbiology Results
Imaging :
12/20/2023 CT abdomen/pelvis without contrast: Horseshoe kidney with severe bilateral hydroureteronephrosis with right ureteral stent in position as described. No definite obstructing urinary calculi identified. Mild bilateral perinephric stranding
and small focus of gas within the proximal left renal collecting system may reflect upper urinary tract infection. Please see full dictation for additional detail. Film personally viewed.
Assessment / Plan
Chronic ureteral stent s/p exchange (routine every 3 months)
Hx ESBL E. coli colonization with prior history of sepsis
Nephrolithiasis/chronic obstructive uropathy
ESRD�HD via RUE AV fistula
HTN
Paroxysmal A-fib
Metastatic prostate cancer s/p rad prostatectomy, XRT and hormone therapy
Hx Radiation cystitis
Horseshoe kidney
Left ureteral stricture
Recommendations:
Given recent urinary manipulation and prior history of sepsis, will begin ertapenem 500 mg IV every 24 hours.
Suspect patient may only need 1 dose but will follow clinically with you.
Care Review
Plan reviewed with: Physician
--- NOTE | 2024-04-23 14:52 | CON.HOSP ---
Family Physician
-
Family Physician: INTERVIEWE UNKNOWN - PT NOT
Chief Complaint
-
stent exchange
History of Present Illness
83 y/o male with past medical history of metastatic prostate cancer s/p proctectomy and radiation, right ureteral stricture s/p right double-J stent, ESRD on HD (Saturday, and Saturday), anemia of chronic disease, recurrent UTIs, and atrial
fibrillation on eliquis, admission for urethral stent exchange stent was last changed on 12/18. Hospital medicine was consulted for management of comorbidities.
At the time of my evaluation he was postoperative for stent change. He had no complaints. States he received dialysis on Saturday and Saturday allowing him to skip schedule in order to get Saturday dialysis . he otherwise has no acute
complaints.
Medical History
Past Medical History
Past Medical History: Reports Cancer
Past Surgical History: Reports Urological
Allergies / Home Medications
Allergies reflects when Allergies were last updated in [employer] [facility] [employer]
Home Medications with original date entered in [employer] [facility] [employer]
Allergy/Medication List:
Allergies
Allergy/AdvReac Type Severity Reaction Status Date / Time
iron [From Venofer] Allergy syncope/rigors Verified 04/23/24 09:00
'almost
passed out'
Home Medications
amiodarone 200 mg tablet 200 mg PO DAILY Arrhythmia 10/07/22
apixaban 2.5 mg tablet (Eliquis) 2.5 mg PO BID Blood clot prevention/tx #30 tabs 05/03/23
midodrine 10 mg tablet 10 mg PO TID Blood Pressure 08/22/23
guaifenesin 600 mg tablet, extended release 12 hr (Mucinex) 600 mg PO DAILYPRN PRN cough 12/16/23
esomeprazole magnesium 40 mg capsule,delayed release (Nexium) 40 mg PO DAILY Gastrointestinal Issue 12/20/23
Probiotic 1 dose PO DAILY probiotic 04/21/24
Stool Softener-Laxative 1 dose PO DAILY constipation 04/21/24
Stool Softener-Laxative 2 tab PO DAILY constipation 04/21/24
Physical Exam
Vital Signs
Vital Signs
Temp Pulse Resp BP Pulse Ox
98.0 F 79 18 114/53 95
04/23/24 14:15 04/23/24 14:15 04/23/24 14:15 04/23/24 14:15 04/23/24 14:15
Impression / Plan
-
NAD, resting comfortably in bed
Scleral anicteric
Moist mucous membranes
No JVD
CTA bilateral
Normal S1-S2
Right upper extremity AV fistula with good thrill and bruit
Soft nontender nondistended bowel sounds active
No peripheral pitting edema
Moves extremities spontaneously
AAOx3
Chronic ureteral stent s/p exchange every 3 months with known history of ESBL colonization.
-Begin ertapenem 500 mg IV every 24 given recent urinary manipulation per ID
-ID following
ESRD on HD
� Consult nephrology for completeness. May require hemodialysis tomorrow if hyperkalemic or acidemic.
P A-fib
� Continue Eliquis amiodarone
Chronic hypotension
� Continue midodrine
Normocytic anemia
� Stable likely secondary to anemia of renal deficiency.
� Stable as greater than 10-11 no progress/Epogen required at this time.
[2024-04-23] MEDS: INVANZ 55 MG IV (14:57)
[2024-04-23] MEDS: ProAmatine 10 MG PO ×2 (16:01→21:05)
--- NOTE | 2024-04-23 16:09 | PTCARENOTE ---
received pt from PACU, via bed, family at bedside no complains of pain, RW at bedside, oriented to his room, offers no complaints.
[2024-04-23] MEDS: ELIQUIS 2.5 MG PO (21:05)
[2024-04-24 03:15] VITALS: BP 126/53
[2024-04-24 06:00] VITALS: BMI 27.8
[2024-04-24 07:15] VITALS: BP 125/57
[2024-04-24] MEDS: COLACE 100 MG PO (08:21)
[2024-04-24] MEDS: ELIQUIS 2.5 MG PO (08:21)
[2024-04-24] MEDS: ProAmatine 10 MG PO (08:22)
[2024-04-24] MEDS: PACERONE 200 MG PO (08:22)
[2024-04-24] MEDS: PROTONIX 40 MG PO (08:23)
[2024-04-24 09:54] LABS: % Basophils 0.4 % (0-2); % Eosinophils 0.4 % (0-6); % Lymphocytes 4.2 % (20.5-51.1); % Monocytes 4.5 % (1.7-9.3); % Neutrophils 89.5 % (42.2-75.2); Absolute Immature Granulocytes 0.1 10^3/uL (0-0.05); Absolute Lymphocytes 0.4 10^3/uL (1.2-3.4); Absolute Monocytes 0.5 10^3/uL (0.1-0.6); Absolute Neutrophils 9.4 10^3/uL (1.4-6.5); Hematocrit 30.3 % (39.0-52.0); Mean Platelet Volume 10.6 fL (7.4-10.4); Nucleated Red Blood Cells % 0 % (-); Platelet Count 256 10^3/uL (130-400); Red Blood Cell Count 3.33 10^6/uL (4.70-6.10); Red Cell Dist. Width 15.8 % (11.5-14.5); White Blood Cell Count 10.5 10^3/uL (4.8-10.8)
[2024-04-24 10:05] LABS: Blood Urea Nitrogen 47 mg/dl (9-20); Calcium 9.2 mg/dl (8.4-10.2); Carbon Dioxide 28 mmol/L (22-30); Chloride 92 mmol/L (98-107); Estimated Creatinine Clearance 10 ml/min; Glucose 158 mg/dl (70-99); Potassium 3.9 mmol/L (3.5-5.1); Sodium 136 mmol/L (135-145); eGFR 11.02
[2024-04-24 11:10] VITALS: BP 133/58
--- NOTE | 2024-04-24 12:38 | W.DCSUMMARY ---
Discharge Summary
Discharge Data
Date of Admission: 04/23/24
Date of Discharge: 04/24/24
Total time spent discharging patient (in min): 30
-
Pending Results: No
Hospital Course
pt with obstructed rt ureter underwent uneventful stent exchange remained in dh for ivf abs due to h/o esbl sepsis and esrd home today
Discharge Plan
-
Patient Disposition: Home (Routine Discharge)
Discharge Diagnosis/Procedures: rt uretral obstruction uti
Condition: Good
Diet: No restrictions
Activity: No restrictions
Referrals:
Dane Fernandez MD [Active] - (call dr fernandez [phone] withquestions or concerns)
UNKNOWN - PT NOT,INTERVIEWE [Family Provider] -
Prescriptions:
Continued
amiodarone 200 mg Tablet
200 mg PO DAILY
Eliquis 2.5 MG tablet
2.5 mg PO BID Qty: 30 0RF
Patient Comments:
12/20/23- patient currently recieving free samples
midodrine 10 mg tablet
10 mg PO TID
guaifenesin [Mucinex] 600 mg Tablet Extended Release 12hr
600 mg PO DAILYPRN PRN (Reason: cough)
esomeprazole magnesium [Nexium] 40 mg Capsule,Delayed Release(Dr/Ec)
40 mg PO DAILY
Probiotic
1 dose PO DAILY
Stool Softener-Laxative
2 tab PO DAILY
Stool Softener-Laxative
1 dose PO DAILY
Discharge Orders:
Discharge Patient (As Directed); Ordered 04/24/24
Ordered By: Dane Fernandez
Discharge Date and Time
Print Language: HUNGARIAN
--- NOTE | 2024-04-24 12:50 | W.PN.ID1 ---
Date of Service
Date of Service: April 24, 2024
Today's Communication
Observe off abx.
Assessment / Plan
Chronic ureteral stent s/p exchange (routine every 3 months)
Hx ESBL E. coli colonization with prior history of sepsis
Nephrolithiasis/chronic obstructive uropathy
ESRD�HD via RUE AV fistula
HTN
Paroxysmal A-fib
Metastatic prostate cancer s/p rad prostatectomy, XRT and hormone therapy
Hx Radiation cystitis
Horseshoe kidney
Left ureteral stricture
Recommendations:
Overall patient looks well.
No need for further abx.
Chief Complaint
-: Other (Ureteral stent change)
Subjective / Review of Systems
Review of Systems: No Fever and No Chills
Vital Signs / Physical Exam
Vital Signs
Vital Signs
Temp Pulse Resp BP Pulse Ox
97.9 F 71 16 133/58 98
04/24/24 11:10 04/24/24 11:10 04/24/24 11:10 04/24/24 11:10 04/24/24 11:10
Physical Exam
Constitutional: No Acute Distress, Comfortable and Non-toxic
Eyes: Sclera Anicteric
Cardiovascular: S1/S2; Negative S3/S4
Pulmonary: Non Labored
Gastrointestinal: Non Distended
Genito-Urinary: Negative Suprapubic Tenderness
Neurological: Awake and Alert
Objective Data
Lab Data
Lab Results
04/24/24 09:12
04/24/24 09:12
Estimated Creat Clear 10 ml/min 04/24/24 09:12
Most recent labs reviewed.
Imaging :
12/20/2023 CT abdomen/pelvis without contrast: Horseshoe kidney with severe bilateral hydroureteronephrosis with right ureteral stent in position as described. No definite obstructing urinary calculi identified. Mild bilateral perinephric stranding
and small focus of gas within the proximal left renal collecting system may reflect upper urinary tract infection. Please see full dictation for additional detail. Film personally viewed.
--- NOTE | 2024-04-24 13:18 | CM ---
Addendum entered by Rebekah Castañeda 04/24/24 13:23:
Patient receives HD services at [facility] .
Original Note:
Initial assessment completed with patient who lives with his significant other in a 2 story home with 2 steps to enter, B/B on with 1/2 bath on . DME in home is [employer], [employer] and Grab bars in bathroom. No in-home services. 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 No history of Psychiatric hospitalizations. Pharmacy is [facility] in [facility] and PCP is Dr. Mac. Anticipate no needs at discharge.
--- NOTE | 2024-04-24 13:21 | CM ---
Patient has been medically cleared for discharge to home with no additional skilled services. Patient will resume his HD at [facility] on Saturday,
04/25/24. Patient has arranged for transport home.
== END 2024-04-24 13:25 | disposition home or self-care (01) ==
LOC: SDS 06:23
PROVIDERS: ATTENDING PHYSICIAN Specialist; CONSULT PHYSICIAN Hospitalist; CONSULT PHYSICIAN Internal Medicine Infectious Disease
DX: N13.1 Hydronephrosis with ureteral stricture, not elsewhere classified (principal); Z90.79 Acquired absence of other genital organ(s); Z86.19 Personal history of other infectious and parasitic diseases; Z85.46 Personal history of malignant neoplasm of prostate
CPT/HCPCS: 52332; 74018; 76000; 80048; 85025; C2617; J1335; J1580

== ENCOUNTER → 2024-08-19 08:14 | Day surgery (SDC) | payer MEDICARE, SELFPAY ==
[2024-08-19 11:05] LABS: Hematocrit 36.5 % (39.0-52.0); Hemoglobin 11.8 g/dL (13.0-18.0); Mean Corp Hgb Conc. 32.3 g/dL (33.0-37.0); Mean Corpuscular Hgb 31.8 pg (27.0-31.0); Mean Corpuscular Volume 98.4 fL (80.0-94.0); Mean Platelet Volume 11.4 fL (7.4-10.4); Platelet Count 231 10^3/uL (130-400); Red Blood Cell Count 3.71 10^6/uL (4.70-6.10); Red Cell Dist. Width 15.9 % (11.5-14.5); White Blood Cell Count 8.2 10^3/uL (4.8-10.8)
== END ==
LOC: SDSPAT 08:14
PROVIDERS: ATTENDING PHYSICIAN Specialist; FAMILY PHYSICIAN Family Medicine
DX: Z01.812 Encounter for preprocedural laboratory examination (principal)
CPT/HCPCS: 85027; 36415

== ENCOUNTER 2024-08-27 06:15 | Day surgery (SDC) | payer MEDICARE, SELFPAY ==
[2024-08-19 10:53] VITALS: BMI 29.0
[2024-08-21 09:11] LABS: Blood Urea Nitrogen 22 mg/dl (9-20); Calcium 8.8 mg/dl (8.4-10.2); Carbon Dioxide 31 mmol/L (22-30); Chloride 96 mmol/L (98-107); Estimated Creatinine Clearance 12 ml/min; Glucose 108 mg/dl (70-99); Potassium 3.9 mmol/L (3.5-5.1); Sodium 142 mmol/L (135-145); eGFR 13.65
[2024-08-27] VITALS (25 sets, daily range): BP systolic 87–138; BP diastolic 47–90; BMI 29.0
--- NOTE | 2024-08-27 08:16 | W.PN.URO.CBU ---
Today's Communication / Plan
-
observe for sepsis hospitalist consultd
Assessment / Plan
-
post op observation inpt with long h/o sepsis post op stent exchange
Diagnosis
-
Date of Service: August 274rt urteral obstruction h/o sepsois
-
Patient Diagnosis:
Post Op Day:
Subjective
-
groggy hematuira
Objective
-
Vital Signs
Temp Pulse Resp BP Pulse Ox
98.7 F 77 16 96/64 99
08/27/24 06:25 08/27/24 06:25 08/27/24 06:25 08/27/24 06:25 08/27/24 06:25
Laboratory Results
08/21/24 12:59
Review of Systems
-
: Bleeding
Physical Exam
-
General - well developed, well nourished, no acute distressnon toxic
Chest - clear bilaterally
Abdomen - soft, non-tender, positive bowel sounds, no CVAT, no incisional pain or distention
Genitalia - normal
Rectal - normal
Skin - warm & dry with no rash
Neuro - AOx3, no motor deficits
Extremities - no clubbing, no cyanosis, no edema
Incision - clean, dry
Dressing - clean, dry, intact
Care Review
Data Reviewed
Discussed with: Nursing and Family
[2024-08-27 10:17] LABS: Urine Albumin 3+ (Neg - Trace); Urine Bilirubin Negative (Negative); Urine Character Slightly Cloudy (Clear); Urine Color Red; Urine Glucose Negative (Negative); Urine Ketone Negative (Negative); Urine Leukocyte 2+ (Negative); Urine Nitrite Negative (Negative); Urine Occult Blood 4+ (Negative); Urine Urobilinogen Negative (Neg - 1+)
[2024-08-27 11:37] LABS: Urine Amorphous Seen; Urine Mucus Few; Urine Red Blood Cell >100 /HPF (0-2); Urine Squamous Cell 0-2 /LPF (Few)
[2024-08-27 11:38] LABS: Urine White Cell 16-20 /HPF (0-5)
[2024-08-27 11:41] LABS: Urine Bacteria Moderate (Negative)
[2024-08-27] MEDS: ProAmatine 10 MG PO ×2 (13:53→18:32)
--- NOTE | 2024-08-27 14:17 | CON.HOSP ---
Consultation
-
Requesting Provider: Dr. Fernandez
Performing Provider: Dr. Rothman
Reason for Consultation: Management of comorbities
Family Physician
-
Family Physician: NO INTERVIEW UNKNOWN
Chief Complaint
-
uretral stent exchange
History of Present Illness
84 male history of metastatic prostate cancer s/p prostatectomy without radiation right urethral stricture s/p right double-J stent, ESRD on HD Saturday, anemia of chronic disease, recurrent UTIs, atrial fibrillation on Eliquis
amiodarone, admission for urethral stent exchange which was last in April. Hospital medicine consulted for management of comorbidities.
Without recent labs last BMP from 08/21 that shows a high creatinine expected in the setting of known history of ESRD on HD.
I evaluated him in PACU. He was afebrile without acute complaints and hemodynamically stable. He was fully mentally intact answering all questions appropriately.
Medical History
Allergies / Home Medications
Allergies reflects when Allergies were last updated in [employer].
Home Medications with original date entered in [employer]
Allergy/Medication List:
Allergies
Allergy/AdvReac Type Severity Reaction Status Date / Time
iron [From Venofer] Allergy syncope/rigors Verified 08/27/24 06:32
'almost
passed out'
Home Medications
amiodarone 200 mg tablet 200 mg PO DAILY Arrhythmia 10/07/22
apixaban 2.5 mg tablet (Eliquis) 2.5 mg PO BID Blood clot prevention/tx #30 tabs 05/03/23
midodrine 10 mg tablet 10 mg PO TID Blood Pressure 08/22/23
guaifenesin 600 mg tablet, extended release 12 hr (Mucinex) 600 mg PO DAILYPRN PRN cough 12/16/23
esomeprazole magnesium 40 mg capsule,delayed release (Nexium) 40 mg PO DAILY Gastrointestinal Issue 12/20/23
docusate sodium 100 mg capsule (Colace) 100 mg PO DAILY PRN constipation 08/21/24
lactobacillus combination no.4 3 billion cell capsule (Probiotic) 3,000 mmu cells PO DAILY 08/21/24
Physical Exam
Vital Signs
Vital Signs
Temp Pulse Resp BP Pulse Ox
98.3 F 74 14 121/61 93
08/27/24 08:15 08/27/24 13:53 08/27/24 13:45 08/27/24 13:53 08/27/24 13:45
Laboratory Results
-
Laboratory Results
08/21/24 12:59
Impression / Plan
-
Physical Exam
NAD, resting comfortably in bed
Scleral anicteric
Moist mucous membranes
No JVD
CTA bilateral
Normal S1-S2 no murmurs
Soft nontender nondistended bowel sounds active
No peripheral pitting edema
Moves extremities spontaneously
AAOx3
Assessment and Plan
Right ureteral stricture s/p exchange of right double-J stent
-Admission reason observe overnight for sepsis
-At this time without evidence
-Will check CBC BMP
-Urine culture from 08/05/2023 with ESBL E. coli since then no growth
-Intraoperatively did receive gentamicin
-Due to recent manipulation would begin ertapenem 500 mg in the setting of known ESBL colonization.
-Consult ID
Atrial fibrillation, currently in sinus rhythm
-Continue antiarrhythmics
-Continue Eliquis
Hypotension
-Continue midodrine 3 times daily
ESRD on HD
-Consult nephrology for hemodialysis recommendations
--- NOTE | 2024-08-27 16:20 | PTCARENOTE ---
Patient received to room 430 from PACU in bed. Patient oriented to room. Call berger in reach.
[2024-08-27] MEDS: INVANZ 55 MG IV (18:23)
[2024-08-27] MEDS: ELIQUIS 2.5 MG PO (20:06)
[2024-08-28 03:19] VITALS: BP 132/52
[2024-08-28 06:00] VITALS: BMI 28.8
[2024-08-28 07:20] VITALS: BP 132/64
[2024-08-28 07:59] LABS: Hematocrit 31.3 % (39.0-52.0); Hemoglobin 10.4 g/dL (13.0-18.0)
[2024-08-28] MEDS: PACERONE 200 MG PO (08:15)
[2024-08-28] MEDS: ProAmatine 10 MG PO (08:15)
[2024-08-28] MEDS: PROTONIX 40 MG PO (08:15)
[2024-08-28] MEDS: ELIQUIS 2.5 MG PO (08:15)
[2024-08-28 11:42] VITALS: BP 120/52
--- NOTE | 2024-08-28 14:00 | CM ---
Chart reviewed and patient has been cleared for discharge to home with spouse, no needs.
Plan; Home with spouse no needs.
== END 2024-08-28 13:48 | disposition home or self-care (01) ==
LOC: SDS 06:15
PROVIDERS: ATTENDING PHYSICIAN Specialist; CONSULT PHYSICIAN Hospitalist
DX: N13.5 Crossing vessel and stricture of ureter without hydronephrosis (principal); C61 Malignant neoplasm of prostate
CPT/HCPCS: 52332; 74018; 76000; 80048; 81003; 81015; 85014; 85018; 87070; 87086; A4300; C1894; C2617; J1335; J1580

== ENCOUNTER 2025-01-14 06:17 | Day surgery (SDC) | payer MEDICARE, SELFPAY ==
[2025-01-01 13:07] VITALS: BMI 27.1
--- NOTE | 2025-01-06 08:05 | PTCARENOTE ---
Patients 01/01 KARLENE Wilde @ Dr. Vitalesan [facility] office notified
[2025-01-14] VITALS (17 sets, daily range): BP systolic 14–124; BP diastolic 43–67; BMI 27.1
[2025-01-14] MEDS: NORMOSOL-R/PLASMALYTE-A 1000 IV (08:55)
--- NOTE | 2025-01-14 09:19 | CON.HOSP ---
Addendum entered and electronically signed by Ted Brown MD 01/14/25 22:59:
Attending Addendum-
I performed a history and physical exam of the patient and discussed his management with the resident. I reviewed the resident's note and agree with the documented findings and plan of care CC/HPI- admitted for elective double J stent placement.
patient has h/o of numerous episode of sepsis s/p stent placement. Currently patient feels weak. complains of hematuria which is chronic. Seen post procedure. Denies fevers chills. Full 12 point ROS reviewed and negative except as documented Exam-
vitals reviewed in EMR GEN-NAD heart RRR lungs cler abd soft LE no edema
Plan:
#Right ureteral obstruction status post metastatic prostate cancer with radiation and reimplantation of the
right ureter.
- 01/14 s/p double-J stent replacement and cysto in OR today
- history of postop sepsis. high risk - monitor overnight
- given Levaquin x 1 prior to procedure
- Chronic hematuria-monitor H&H
- Eliquis on hold for procedure, resumption per urology in am
- care per primary
# Chronic anemia:
- Likely chronic disease ESRD and chronic hematuria
- Follow CBC
- receives epo as OP
# Metastatic prostate cancer:
- Status post prostatectomy
# Essential hypertension:
With history of hypotension
-Blood pressure stable on no home antihypertensives. Monitor
# A-fib:
-Currently rate and rhythm controlled
-Continue Eliquis in am and amiodarone
-Telemetry following OR
#ESRD:
- /Sat/
- Hemodialysis done yesterday (sat) in prep for OR today
- Follows with Dr Alejandra
- consult nephro for potential HD tomorrow
#GERD:
-Continue esomeprazole
#Chronic rhinorrhea/environmental allergies:
- Continue cetirizine
DVT prophylaxis: SCDs
CODE STATUS: Full code
Dispo DC home with HC per primary
ACP
Patient consented to discuss, was alone, time spent explanation of advance directives, changes in health status, patient�s health care wishes if the patient becomes unable to make health decisions, goals of care, code status, and prognosis 'criselda got
too much to live for. I hate getting dialysis but ill do it for my family'- 16 minutes
Time spent coordinating care, review of plan of care with resident, personally reviewed previous records in EMR, med rec, labs, radiology, d/w nursing, family total time documented is exclusive of any additional time listed that was spent in advance
care planning discussion -� 81 minutes
Original Note:
Consultation
-
Date/Time Consultation Requested: 8:30 am
Date/Time Consultation Performed: 8:45 am
Requesting Provider: Dane Fernandez MD
Performing Provider: Ted Brown MD
Reason for Consultation: Afib, HTN, ESRD, planned R ureteral stent replacement
Family Physician
-
Family Physician: NO INTERVIEW UNKNOWN
Chief Complaint
-
Routine R ureteral stent replacement
History of Present Illness
Pleasant 84-year-old male with history of hypertension, CAD, metastatic prostate cancer status post prostatectomy, right ureteral stricture + right double-J stent, recurrent UTIs, ESRD on dialysis, anemia of chronic disease, A-fib on Eliquis, who
presents today for routine cystoscopy right double-J stent exchange by urology, usually performed Q 3 months. He reports chronic hematuria, follows with Dr. Fernandez. He has a history of septicemia after these procedures and will be observed
overnight after OR.
He reports chronic hematuria but denies any new urinary symptoms, no fever/chills/recent illness, N/V/abd pain, bloody stool, chest pain, or SOB.
Medical History
Past Medical History
Past Medical History: Reports Arrhythmia (A-fib), CAD, Cancer (Metastatic prostate), GERD, HTN, Renal Failure (ESRD on HD) and Other (anemia, recurrent UTI, right ureteral stricture, environmental allergies)
Past Surgical History: Reports Urological (Radical prostatectomy, reimplantation of right ureter, multiple right ureteral stenting, percutaneous treatment of kidney stones)
Social History
Tobacco: Non-smoker
Personal:
Living: With Family
Family History
Family History: Reviewed & Not Pertinent
Allergies / Home Medications
Allergies reflects when Allergies were last updated in [facility].
Home Medications with original date entered in [facility]
Allergy/Medication List:
Allergies
Allergy/AdvReac Type Severity Reaction Status Date / Time
iron [From Venofer] Allergy syncope/rigors Verified 01/14/25 08:20
'almost
passed out'
Home Medications
amiodarone 200 mg tablet 200 mg PO DAILY Arrhythmia 10/07/22
apixaban 2.5 mg tablet (Eliquis) 2.5 mg PO BID Blood clot prevention/tx #30 tabs 05/03/23
esomeprazole magnesium 40 mg capsule,delayed release (Nexium) 20 mg PO BID Gastrointestinal Issue 12/20/23
docusate sodium 100 mg capsule (Colace) 100 mg PO DAILY PRN constipation 08/21/24
cetirizine 10 mg tablet (Zyrtec) 10 mg PO DAILY PRN congestion, post nasal drip 01/07/25
guaifenesin 100 mg/5 mL oral liquid 200 mg PO Q4H PRN post nasal drip cough 01/07/25
Review of Systems
-
History Source: Patient
Constitutional: Denies Fever
Respiratory: Denies Trouble Breathing
Cardiac: Denies Chest Pain
Abdomen/GI: Denies Abdominal Pain, Nausea, Vomiting, Diarrhea, Constipated or Bloody Stools
: Reports Incontinence and Bleeding; Denies Dysuria
Physical Exam
Vital Signs
Vital Signs
Temp Pulse Resp BP Pulse Ox
98.6 F 68 16 98/54 97
01/14/25 08:24 01/14/25 08:24 01/14/25 08:24 01/14/25 08:24 01/14/25 08:24
Physical Exam
General: Well Developed, Well Nourished, No Apparent Distress and Comfortable
HEENT: Normocephalic, Anicteric and Moist Mucous Membranes
Respiratory: Clear and Non Labored Respirations; Negative Wheezes, Rales or Rhonchi
Cardiac: S1/S2 and Regular Rhythm; Negative Murmur, Rub, Peripheral Edema or Calf Tenderness
GI: Soft, Non Tender, Non Distended and Normal Bowel Sounds
Genito-urinary: No Costovertebral Tend and Other (no suprapubic fullness/tenderness)
Musculoskeletal: No Clubbing, No Cyanosis and No Edema
Skin: Warm and Dry
Neuro: Awake, Alert and Oriented
Psych: Calm
Impression / Plan
-
IMPRESSION:
84-year-old male with history of hypertension, CAD, metastatic prostate cancer status post prostatectomy, right ureteral stricture + right double-J stent, recurrent UTIs, ESRD on dialysis, anemia of chronic disease, A-fib on Eliquis, who presents
today for routine cystoscopy right double-J stent exchange
PLAN:
Right ureteral stricture:
Pelvic horseshoe kidney
- For right double-J stent replacement in OR today
- Recurrent history of postop sepsis after this procedure in the past. Will monitor overnight
- Chronic hematuria, will monitor H&H
- Consider telemetry after procedure since patient mentioned hx of post op uncontrolled afib
- Eliquis on hold for procedure, resumption per urology
Chronic anemia:
Likely chronic disease and chronic hematuria
- Follow CBC
Metastatic prostate cancer:
Status post prostatectomy
Essential hypertension:
With history of hypotension
-Blood pressure stable on no home antihypertensives. Monitor
A-fib:
Currently rate and rhythm controlled
-Continue Eliquis and amiodarone
-Telemetry following OR
ESRD:
On hemodialysis, /Sat/
- Hemodialysis done yesterday (sat) in prep for OR today
- Follows with Dr Alejandra
- consult nephro for potential HD tomorrow
GERD:
-Continue esomeprazole
Chronic rhinorrhea/environmental allergies:
- Continue cetirizine
Preferred contact: Lizzie
DVT prophylaxis: SCDs
CODE STATUS: Full code
--- NOTE | 2025-01-14 10:50 | W.SUR.POST ---
Surgical Immediate Post Op
Note
Pre Op Diagnosis: rt ureteral obstruction esrd metastatic acp
Post Op Diagnosis: same and bladder neck contracture
Procedure Performed: cysto incision bladder neck contracture an exchange rt jj stent
Primary Surgeon:rik
Secondary Surgeons:
Anesthesia: general dr burch
Estimated Blood Loss: 2
Fluids:
Drains/Shunts: 6 fr 24 cm jj stent
Specimens/Cultures:
Doppler/Duplex/Angio (Y/N):
Complications:0
Operative Findings: tight bladder neck radiationcotracture dilated incised then exchanged rt jj stent
--- NOTE | 2025-01-14 14:35 | CM ---
Reviewed the chart notes and spoke with the patient at the bedside. The patient resides with his spouse in a two story home with two steps to enter. The patient has a rolling walker and grab bar in the bath. The patient has been to [facility] in the past. Patient has had VN in past, but could not recall the agency name. Patient receives HD --Sat at [facility]. Patient had HD yesterday in preparation for his procedure. Patient no longer drives. Spouse provides
transportation. CM continues to be available to patient/family and is monitoring medical plan for needs at discharge.
Plan: Discharge to home when medically stable. No anticipated needs identified at this time.
--- NOTE | 2025-01-14 18:40 | PTCARENOTE ---
SPD out of medium sized thigh high SCDS. medium knee highs applied. large thigh highs too big to apply
[2025-01-14] MEDS: PROTONIX 40 MG PO (21:52)
[2025-01-15 03:39] VITALS: BP 116/61
[2025-01-15 06:00] VITALS: BMI 26.7
[2025-01-15 07:37] LABS: Hematocrit 31.2 % (39.0-52.0); Hemoglobin 10.1 g/dL (13.0-18.0)
[2025-01-15] MEDS: PROTONIX 40 MG PO (08:07)
[2025-01-15] MEDS: PACERONE 200 MG PO (08:07)
[2025-01-15 08:08] VITALS: BP 126/63
--- NOTE | 2025-01-15 08:24 | W.PN.HOSP.TC ---
Addendum entered and electronically signed by Ted Brown MD 01/15/25 20:57:
Attending Addendum-
I saw and evaluated the patient. I reviewed the resident�s note and agree with findings and plan as documented in the resident�s note. Sub: complaisn of mild LUQ pain. continues to have hematuria which is chronic. Seen with present. Denies
fevers chills. Full 12 point ROS reviewed and negative except as documented Exam- vitals reviewed in EMR GEN-NAD heart RRR lungs cler abd soft LE no edema
Plan:
#Right ureteral obstruction status post metastatic prostate cancer with radiation and reimplantation of the
right ureter.
- 01/14 s/p double-J stent replacement and cysto
- history of postop sepsis. high risk - monitor overnight
- given Levaquin x 1 prior to procedure
- Chronic hematuria-monitor H&H
- Eliquis on hold for procedure, resumption per urology
- care per primary
# Chronic anemia:
- Likely chronic disease ESRD and chronic hematuria
- Follow CBC-stable
- receives epo as OP
# Metastatic prostate cancer:
- Status post prostatectomy
# Essential hypertension:
With history of hypotension
-Blood pressure stable on no home antihypertensives. Monitor
# A-fib:
-Currently rate and rhythm controlled
-Continue Eliquis in am and amiodarone
-Telemetry following OR
#ESRD:
- /Sat/
- Hemodialysis done yesterday (sat) in prep for OR today
- D/W nephro- ok for HD on Saturday as scheduled
- follows with with Dr Alejandra
#GERD:
-Continue esomeprazole
#Chronic rhinorrhea/environmental allergies:
- Continue cetirizine
DVT prophylaxis: SCDs
CODE STATUS: Full code
Dispo DC home with HC- per primary
Time spent coordinating care, review of plan of care with resident, personally reviewed records in EMR, med rec, consults, notes, labs, radiology, d/w nursing, � 51 mins
Original Note:
Today's Communication/Plan
-
Stable for discharge. DC planning per primary
Assessment / Plan
Assessment / Plan
84-year-old male with history of hypertension, CAD, metastatic prostate cancer status post prostatectomy, right ureteral stricture + right double-J stent, recurrent UTIs, ESRD on dialysis, anemia of chronic disease, A-fib on Eliquis, s/p cystoscopy
right double-J stent exchange
PLAN:
Right ureteral stricture:
High risk given recurrent history of postop sepsis after this procedure in the past. No acute overnight events. Feels well and remains hemodynamically stable. Afebrile
- s/pright double-J stent replacement in OR today
- Chronic hematuria, H&H stable
- Eliquis on hold, resumption per urology
Chronic anemia:
Likely chronic disease/ESRD and chronic hematuria
Receives EPO outpatient
- H&H stable
Metastatic prostate cancer:
Status post prostatectomy
Essential hypertension:
With history of hypotension
-Blood pressure stable on no home antihypertensives. Monitor
A-fib:
Currently rate and rhythm controlled
-Resume Eliquis per primary. Continue amiodarone
ESRD:
On hemodialysis, /Sat/
- Hemodialysis done sat in prep for OR.
- Follows with Dr Alejandra
- Pt to resume regular HD schedule on saturday
GERD:
-Continue esomeprazole
Chronic rhinorrhea/environmental allergies:
- Continue cetirizine
DVT prophylaxis: SCDs
CODE STATUS: Full code
Anticipated Discharge: Today
Subjective/Interval History
-
Date of Service: January 15, 2025
Uneventful overnight
Objective Data
-
Labs:
Laboratory Results
01/15/25
06:46
Hgb 10.1 L
Hct 31.2 L
Vital Signs:
Vital Signs
Temp Pulse Resp BP Pulse Ox
98.1 F 85 17 126/63 98
01/15/25 08:08 01/15/25 08:08 01/15/25 08:08 01/15/25 08:08 01/15/25 08:08
I&O
01/14/25 01/15/25 01/16/25
06:59 06:59 06:59
Intake Total 920 / 920
Balance 920 / 920
Review of Systems
-
History Source: Patient
Constitutional: Denies Fever, Night Sweats or Chills
Respiratory: Denies Trouble Breathing
Cardiac: Denies Chest Pain
Abdomen/GI: Reports Abdominal Pain (mild LLQ pain)
Genitourinary: Reports Incontinence; Denies Dysuria
Physical Exam
-
General: Well Developed, Well Nourished, No Apparent Distress and Comfortable
HEENT: Normocephalic, Atraumatic and Moist Mucous Membranes
Respiratory: Clear to Auscultation and Non Labored Respirations; Negative Wheezes, Rales, Rhonchi or Crackles
Cardiac: S1/S2; Negative Murmur, Rub or Calf Tenderness
GI: Soft, Nondistended, Normal Bowel Sounds and Tender (mild tenderness in LLQ)
Genito-urinary: No Costovertebral Tender
Musculoskeletal: No Clubbing, No Cyanosis and No Edema
Skin: Warm and Dry
Neuro: Awake, Alert and Oriented
Psych: Calm
[2025-01-15 11:17] VITALS: BP 112/49
--- NOTE | 2025-01-15 11:30 | CM ---
CM reviewed medical records. Plan for discharge when medically ready. No needs noted on discharge.
PLAN: Home no needs
== END 2025-01-15 13:56 | disposition home or self-care (01) ==
LOC: SDS 06:17
PROVIDERS: ATTENDING PHYSICIAN Specialist; CONSULT PHYSICIAN Family Medicine
DX: C61 Malignant neoplasm of prostate (principal); N13.5 Crossing vessel and stricture of ureter without hydronephrosis; N18.6 End stage renal disease; N30.41 Irradiation cystitis with hematuria; N32.0 Bladder-neck obstruction
CPT/HCPCS: 52332; 74018; 76000; 85014; 85018; 87070; A4300; C1894; C2617; J1580

== ENCOUNTER → 2025-03-30 15:24 | Outpatient (REF) | payer OTHER, SELFPAY ==
[2025-03-30 16:02] LABS: Hemoglobin 7.5 g/dL (13.0-18.0)
== END ==
LOC: OLAB 15:24
PROVIDERS: ATTENDING PHYSICIAN Specialist
DX: N18.6 End stage renal disease (principal)
CPT/HCPCS: 36415; 85018

== ENCOUNTER 2025-03-31 14:46 | Inpatient (IN) | payer MEDICARE, SELFPAY ==
[2025-03-31] VITALS (14 sets, daily range): BP systolic 95–116; BP diastolic 20–95; BMI 25.4
--- NOTE | 2025-03-31 09:34 | ED.GENMED ---
History of Present Illness
General
Chief Complaint: Abnormal Lab Value
Source: patient, records and spouse
Exam Limitations: none
Time Seen by Provider: 03/31/25 09:19
Nursing documentation reviewed up to this point in time: agreed with
History of Present Illness
History of Present Illness:
85-year-old male with past medical history of atrial fibrillation on Eliquis, hypertension, ESRD on hemodialysis, prostate cancer status post prostatectomy and radiation treatment, chronic ureteral obstruction managed with chronic stent who presents
to the emergency department for evaluation of anemia and hematuria. Patient reports that he has chronic occasional hematuria that has been attributed to radiation cystitis by his urologist. He says that for the past month or so he has had regular
hematuria. He says that he is incontinent but has been changing diaper every 3 or 4 hours and is consistently noting bright red blood for the past month. He has had increasing fatigue and muscle weakness, had outpatient labs drawn yesterday which
showed anemia with a hemoglobin of 7.5. He was sent into the emergency room for assessment. He has not noted any other bleeding specifically denies blood in his stools. He denies any chest pain, shortness of breath, abdominal pain/flank pain. No
other complaints. He does have a history of ESRD on dialysis�last session was yesterday. He follows with Dr. Cabrera. Patient notably says that he is due for stent exchange of his chronic ureteral stent on 04/15/[address] Fernandez.
Past History
Past History
ED Past Medical History: Arrthythmia (Atrial fibrillation), Cancer (Metastatic prostate), HTN, Renal failure and Other (UTI, anemia, r ureteral fibrosis 2 XRT, Horseshoe kidney, Kidney stones)
ED Past Surgical History: Orthopedic (Right hip fracture), Urological (R ureteral stent 11/2020) and Other (AAA repair, Hiatel hernia repair ,Right fistula started)
Patient has exhibited threatening behavior?: No
PSI?: No
Social History
Tobacco: Former smoker
Alcohol: Occasional
Personal:
Living: with family
Family History
Family History: Other (Noncontributory)
Review of Systems
Review of Systems
All Other Systems: ROS reviewed and negative except as documented in HPI and ROS
Constitutional: Reports fatigue
Respiratory: Denies trouble breathing
Cardiac: Denies chest pain
ABD/GI: Denies abdominal pain
: Reports bleeding; Denies flank pain
Musculoskeletal: Denies back pain
Neurological: Denies headache
Phy Exam
Physical Exam
Physical Exam:
General: Awake, alert; no acute distress
Head: Normocephalic, atraumatic
Eyes: Conjunctiva normal
Throat: Airway intact, handling secretions
Neck: Trachea midline, no JVD
Lungs: Clear to auscultation bilaterally, no wheezing, rales, rhonchi
Heart: Regular rate and rhythm, no murmurs, gallops, or rubs
Abd: Soft, non distended, nontender
Neuro: No gross deficits
Extremities: Warm well-perfused; right upper extremity AV fistula in place
Course
Orders/Labs/Results
Orders:
Orders
03/31/25 09:22
Urinalysis Reflex To Culture Urgent
03/31/25 09:39
UROLOGY CONSULT Urgent
Consulting Provider: Dane Fernandez
Was physician already notified: Yes
03/31/25 09:44
Type+Screen Urgent
Complete Blood Count/With Diff Urgent
Comprehensive Metabolic Panel Urgent
PTT Urgent
Prothrombin Time Urgent
03/31/25 10:22
Blood Bank Products [* Blood Bank Products] Urgent
Blood Bank Products: *Packed RBC Leuko(PRBC's)
Quantity: 1
Transfuse Today: Yes
Reason: Anemia
03/31/25 Dinner
NPO
Allow oral meds: Yes
Allow clear liquids: No
NPO for procedure after (time): midnight
Abnormal Lab Results
03/31/25
09:44
RBC 2.65 L 10^6/uL
(4.70-6.10)
Hgb 8.2 L g/dL
(13.0-18.0)
Hct 25.2 L %
(39.0-52.0)
MCV 95.1 H fL
(80.0-94.0)
MCHC 32.5 L g/dL
(33.0-37.0)
RDW 18.3 H %
(11.5-14.5)
Abs Immat Gran (auto) 0.3 H 10^3/uL
(0-0.05)
Absolute Lymphs (auto) 0.9 L 10^3/uL
(1.2-3.4)
Absolute Monos (auto) 1.0 H 10^3/uL
(0.1-0.6)
Immature Gran % 3.7 H %
(0-0.5)
Lymphocytes % 12.5 L %
(20.5-51.1)
Monocytes % 15.1 H %
(1.7-9.3)
PT 14.8 H Sec
(11.4-14.6)
APTT 41.9 H Sec
(23.4-35.0)
Creatinine 3.8 H mg/dL
(0.7-1.3)
Glucose 127 H mg/dl
(70-99)
03/31/25 09:44
03/31/25 09:44
Vital Signs
Initial and Last Documented VS:
Initial Vital Signs
Temp Pulse Resp BP Pulse Ox
36.8 C 89 18 102/50 100
03/31/25 08:14 03/31/25 08:14 03/31/25 08:14 03/31/25 08:14 03/31/25 08:14
Last Documented Vital Signs
Temp Pulse Resp BP Pulse Ox
36.8 C 65 16 102/50 97
03/31/25 08:14 03/31/25 09:45 03/31/25 10:00 03/31/25 08:14 03/31/25 09:45
MDM/Problems Addressed
Differential Diagnosis Includes:
Symptomatic anemia
MDM/Problems Addressed:
85-year-old male presents with hematuria and increased fatigue and weakness�outpatient labs showed anemia. Vital signs are normal. Physical exam as above. Labs were sent off here and confirms that he is anemic�hemoglobin today is 8.2, yesterday
7.5. Baseline is around 10 in the setting of ESRD. Chemistry today is acceptable, due for dialysis tomorrow. Plan to transfuse 1 unit of PRBCs for symptomatic anemia. Patient attributes bleeding to stent issue and is requesting that I discussed
with urology about expediting stent exchange. In the past is chronic hematuria has been attributed to radiation cystitis. Will discuss with urology.
Discussed case with Dr. Ugalde is able to expedite stent exchange and can perform tomorrow although unclear whether this will actually help with hematuria. Requested patient be n.p.o. past midnight. Case discussed with hospitalist for
admission.
Chronic conditions affecting care:
ESRD, chronic anemia, A-fib on Eliquis
*Pulse Oximetry
SaO2: 99
Oxygen Mode of Delivery: Room air
Patient hypoxic: no (99%)
*Critical Care Note
Total Time (30-74mins, 75-104mins- exclusive of procedures): Not Applicable
Data Reviewed
Review of Other/Old Records Reveals: Labs and Records
Source: patient, records and spouse
Patient Management
Discussion with other providers: Hospitalist (Discussed with hospitalist) and Paper Cutter Operator (Discussed with urologist)
Escalation/DeEscalation of care consider admission/obs:
Admission indicated
ED Attending Note
-
Portions of this chart may have been created with voice recognition software.� Occasional wrong word or��sound alike� substitutions may have occurred due to the inherent limitations of voice recognition software.
Discharge Plan
Departure
Patient Disposition: Admit
Date of Disposition: 03/31/25
Time of Disposition: 10:34
Admit to doctor: Elliot
Presentation/result/management discussed w/ accepting MD/DO: Hospitalist
Discharge Problem:
Symptomatic anemia, Hematuria
Prescriptions:
No Action
amiodarone 200 mg Tablet
200 mg PO DAILY
Eliquis 2.5 MG tablet
2.5 mg PO BID Qty: 30 0RF
Patient Comments:
12/20/23- patient currently recieving free samples
esomeprazole magnesium [Nexium] 40 mg Capsule,Delayed Release(Dr/Ec)
20 mg PO BID
docusate sodium [Colace] 100 mg Capsule
100 mg PO DAILY PRN (Reason: constipation)
cetirizine [Zyrtec] 10 mg Tablet
10 mg PO DAILY PRN (Reason: congestion, post nasal drip)
guaifenesin 100 mg/5 mL Liquid
200 mg PO Q4H PRN (Reason: post nasal drip cough)
Referrals:
Haile Mac DO [Family Provider, Family Practice]
Interventions
Interventions:
*Risk Screen - Suicide Last Done: 03/31/25 08:14
*General Assessment Last Done: 03/31/25 08:14
*Neglect/Abuse Screening Last Done: 03/31/25 08:14
*ED COVID-19 Vaccine History Last Done: 03/31/25 09:22
Discharge Date and Time
Print Language: GERMAN
[2025-03-31 09:55] LABS: % Basophils 1.3 % (0-2); % Eosinophils 3.1 % (0-6); % Immature Granulocytes 3.7 % (0-0.5); % Lymphocytes 12.5 % (20.5-51.1); % Monocytes 15.1 % (1.7-9.3); % Neutrophils 64.3 % (42.2-75.2); Absolute Basophils 0.1 10^3/uL (0-0.2); Absolute Eosinophils 0.2 10^3/uL (0-0.7); Absolute Immature Granulocytes 0.3 10^3/uL (0-0.05); Absolute Lymphocytes 0.9 10^3/uL (1.2-3.4); Absolute Neutrophils 4.4 10^3/uL (1.4-6.5); Hematocrit 25.2 % (39.0-52.0); Hemoglobin 8.2 g/dL (13.0-18.0); Mean Corp Hgb Conc. 32.5 g/dL (33.0-37.0); Mean Corpuscular Hgb 30.9 pg (27.0-31.0); Mean Corpuscular Volume 95.1 fL (80.0-94.0); Nucleated Red Blood Cells % 0.6 % (-); Platelet Count 322 10^3/uL (130-400); Red Blood Cell Count 2.65 10^6/uL (4.70-6.10); Red Cell Dist. Width 18.3 % (11.5-14.5); White Blood Cell Count 6.8 10^3/uL (4.8-10.8)
[2025-03-31 10:03] LABS: INR 1.11; PT 14.8 Sec (11.4-14.6)
[2025-03-31 10:04] LABS: APTT 41.9 Sec (23.4-35.0)
[2025-03-31 10:18] LABS: ALT (SGPT) 14 U/L (0-50); AST (SGOT) 25 U/L (17-59); Albumin 3.9 g/dl (3.5-5.0); Alkaline Phosphatase 117 U/L (38-126); Blood Urea Nitrogen 17 mg/dl (9-20); Calcium 8.7 mg/dl (8.4-10.2); Carbon Dioxide 30 mmol/L (22-30); Chloride 100 mmol/L (98-107); Glucose 127 mg/dl (70-99); Potassium 4.2 mmol/L (3.5-5.1); Sodium 139 mmol/L (135-145); Total Bilirubin 0.7 mg/dl (0.2-1.3); Total Protein 7.1 g/dl (6.3-8.2); eGFR 14.86
--- NOTE | 2025-03-31 13:23 | HPS.HSE ---
Family Physician
-
Family Physician: Haile Mac
Chief Complaint
-
Symptomatic anemia
History of Present Illness
Patient is 85 years old male with end-stage renal disease, nonoliguric, history of metastatic prostate carcinoma status post prostatectomy, radiation treatment, radiation cystitis, horseshoe kidney with right ureteral implantation and indwelling JJ
stent. While on dialysis day prior to presentation patient complained of fatigue and weakness. He has a chronic hematuria. His hemoglobin was found to be as low as 7's. And he was sent to the emergency room for further evaluation and management.
Upon arrival to the emergency room patient is hemodynamically stable. Repeat hemoglobin 8.2.
Patient denies any fever
Patient was evaluated by urology. Apparently his JJ stent had been exchanged every 2 to 3 months.
Medical History
Past Medical History
Past Medical History: Reports Arrhythmia (Chronic A-fib)
Additional Past Medical History:
Anemia of chronic disease. End-stage renal disease.
Past Surgical History: Reports Other (Prostatectomy, right ureteric reimplantation. Multiple cystoscopies. AAA repair 2002)
Social History
Tobacco: Non-smoker
Alcohol: None
Drug: None
Living: With Family
Family History
Family History: Not pertinent
Allergies / Home Medications
Allergies reflects when Allergies were last updated in [facility].
Home Medications with original date entered in [facility]
Allergy/Medication List:
Allergies
Allergy/AdvReac Type Severity Reaction Status Date / Time
iron (From Venofer) Allergy syncope/rigors Verified 01/14/25 08:20
'almost
passed out'
Home Medications
amiodarone 200 mg tablet 200 mg PO DAILY Arrhythmia 10/07/22
apixaban 2.5 mg tablet (Eliquis) 2.5 mg PO BID Blood clot prevention/tx #30 tabs 05/03/23
esomeprazole magnesium 40 mg capsule,delayed release (Nexium) 20 mg PO DAILY Gastrointestinal Issue 12/20/23
cetirizine 10 mg tablet (Zyrtec) 10 mg PO HS 01/07/25
guaifenesin 100 mg/5 mL oral liquid 200 mg PO BID 01/07/25
midodrine 10 mg tablet 10 mg PO TID 03/31/25
sennosides 8.6 mg-docusate sodium 50 mg tablet (Senna Plus) 1 tab-cap PO DAILYPRN PRN CONSTIPATION 03/31/25
Review of Systems
-
A 12 point ROS was completed and negative except as noted: Yes
Physical Exam
Vital Signs
Vital Signs
Temp Pulse Resp BP Pulse Ox
97.9 F 62 17 108/54 95
03/31/25 12:43 03/31/25 13:15 03/31/25 13:15 03/31/25 13:06 03/31/25 13:15
Physical Exam
General: Well Developed, Well Nourished and No Apparent Distress
HEENT: NormoCephalic, Moist mucous membranes and Atraumatic
Respiratory: Clear
Cardiac: S1/S2 and Regular Rhythm; No Murmur or Rub
GI: Soft, Non Tender, Non Distended and Normal Bowel Sounds; No Organomegaly
Rectal: Deferred by Provider
Musculoskeletal: No Clubbing, No Cyanosis and No Edema
Skin: No Rash
Neuro: Nonfocal/grossly intact
Laboratory Results
-
03/31/25 09:44
03/31/25 09:44
Laboratory Results
PT 14.8 Sec (11.4-14.6) H 03/31/25 09:44
INR 1.11 03/31/25 09:44
APTT 41.9 Sec (23.4-35.0) H 03/31/25 09:44
Total Bilirubin 0.7 mg/dl (0.2-1.3) 03/31/25 09:44
AST 25 U/L (17-59) 03/31/25 09:44
ALT 14 U/L (0-50) 03/31/25 09:44
Alkaline Phosphatase 117 U/L (38-126) 03/31/25 09:44
Impression/Plan
-
IMPRESSION:
Symptomatic acute on chronic anemia secondary to hematuria and anticoagulation with Eliquis
Other conditions:
End-stage renal disease hemodialysis TTS
Right upper extremity AV fistula
Paroxysmal atrial fibrillation
Anticoagulation with Eliquis
Anemia of chronic disease/CKD
Chronic hypotension requiring midodrine.
History of prostate cancer locally invasive with prostatectomy/XRT/hormonal therapy.
Right ureteral reimplantation
Radiation cystitis
Urinary tract colonization with ESBL pathogens
AAA repair 2002
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
PLAN:
Presents with symptomatic anemia hemoglobin trending down to 8
Ongoing hematuria while patient is on Eliquis.
Denies syncope or chest pain
Transfuse: 1 unit of packed red blood cells ordered in the emergency room.
Hold Eliquis.
Urology consultation for cystoscopy and stent exchange 04/01
Given prior history of perioperative UTI and risk for bacterial translocation (patient with history of urinary tract colonization with ESBL pathogens) will start ertapenem adjusted to renal function and dialysis schedule
Paroxysmal A-fib.
Continue amiodarone
Hold Eliquis
Chronic hypotension requiring midodrine.
End-stage renal disease on HD.
Nephrology consultation
Readjust antibiotics with HD schedule
Full code.
DVT prophylaxis mechanical while off Eliquis.
--- NOTE | 2025-03-31 14:07 | W.CON.NEPH ---
Consultation
-
Date/Time Consultation Requested: 03/31/25 1230
Date/Time Consultation Performed: 03/31/25 1330
Requesting Provider: Theron Morris
Performing Provider: Diana Britton
Reason for Consultation: ESRD
Medical History
-
Chief Complaint: symptomatic anemia, hematuria
History of Present Illness:
�85-year-old male ESRD on HD Saturday, and Saturday at [facility] From AV fistula. He has a known history of anemia of chronic kidney disease and is maintained on LENIN therapy. He is chronically maintained on amiodarone and
anticoagulated with Eliquis for his paroxysmal AFib. He has a prior history of prostate cancer and has undergone previous prostatectomy. He has a known history of an indwelling right ureteral stent, for which he intermittently undergoes exchange,
next exchange was due next month. Patient always had intermittent hematuria would resolve on its own. However this time hematuria was severe, labs checked after patient noted hemoglobin of 7.5. Patient complains about increasing weakness and
fatigue felt to have symptomatic anemia and referred to the ER today. In the year hemoglobin is 8.2, currently getting 1 unit of transfusion. He is planned to have double J stent exchange tomorrow by urology. He continues to have hematuria,
denies any fevers or chills. Has dyspnea on exertion. no chest pain. No abdominal pain or nausea or vomiting. we were consulted for his end-stage renal disease management.
Past Medical History
1. ESRD, Saturday, , Saturday.
2. History of right ureteral stent with exchange.
3. Paroxysmal AFib.
4. Anemia.
5. Chronic hypotension prn midodrine on dialysis.
6. History of prostate cancer with prostatectomy, XRT and hormonal
� � therapy.
7. History of ureteral reimplantation.
8. Radiation cystitis. chronic hematuria
9. AAA repair in 2002.
10.Right total hip replacement.
11.History of horseshoe kidney with nephrolithiasis and chronic
� � hydro.
12.Right upper extremity AV fistula.
Past Surgical History: Other (multiple U stent exchanges , right UE AVF, AAA repair< prostatectomy )
Social History
Tobacco: Non-Smoker
Alcohol: None
Living: With Family
Employment: Retired
Family History
no CKD in family
Family History: Not Pertinent
Allergies / Home Medications
Allergy/AdvReac Type Severity Reaction Status Date / Time
iron (From Venofer) Allergy syncope/rigors Verified 01/14/25 08:20
'almost
passed out'
�Medication �Instructions �Recorded �Confirmed �Type
amiodarone 200 mg tablet 200 mg PO DAILY Arrhythmia 10/07/22 03/31/25 History
apixaban 2.5 mg tablet (Eliquis) 2.5 mg PO BID Blood clot 05/03/23 03/31/25 Rx
prevention/tx #30 tabs
esomeprazole magnesium 40 mg 20 mg PO DAILY Gastrointestinal 12/20/23 03/31/25 History
capsule,delayed release (Nexium) Issue
cetirizine 10 mg tablet (Zyrtec) 10 mg PO HS 01/07/25 03/31/25 History
guaifenesin 100 mg/5 mL oral liquid 200 mg PO BID 01/07/25 03/31/25 History
midodrine 10 mg tablet 10 mg PO TID 03/31/25 03/31/25 History
sennosides 8.6 mg-docusate sodium 1 tab-cap PO DAILYPRN PRN 03/31/25 03/31/25 History
50 mg tablet (Senna Plus) CONSTIPATION
Review of Systems
-
All other systems: Negative unless noted
Physical Exam
Vital Signs
Vital Signs
Temp Pulse Resp BP Pulse Ox
97.9 F 67 16 104/45 97
03/31/25 12:43 03/31/25 14:00 03/31/25 14:00 03/31/25 14:00 03/31/25 14:00
Lab Results
WBC 6.8 10^3/uL (4.8-10.8) 03/31/25 09:44
RBC 2.65 10^6/uL (4.70-6.10) L 03/31/25 09:44
Hgb 8.2 g/dL (13.0-18.0) L 03/31/25 09:44
Hct 25.2 % (39.0-52.0) L 03/31/25 09:44
Plt Count 322 10^3/uL (130-400) 03/31/25 09:44
Sodium 139 mmol/L (135-145) 03/31/25 09:44
Potassium 4.2 mmol/L (3.5-5.1) 03/31/25 09:44
Chloride 100 mmol/L (98-107) 03/31/25 09:44
Carbon Dioxide 30 mmol/L (22-30) 03/31/25 09:44
BUN 17 mg/dl (9-20) 03/31/25 09:44
Creatinine 3.8 mg/dL (0.7-1.3) H 03/31/25 09:44
eGFR 14.86 03/31/25 09:44
Glucose 127 mg/dl (70-99) H 03/31/25 09:44
Calcium 8.7 mg/dl (8.4-10.2) 03/31/25 09:44
Albumin 3.9 g/dl (3.5-5.0) 03/31/25 09:44
Physical Exam
General: Awake, Alert, Oriented, AOx3 and No Distress
HEENT: EOMI, Anicteric, Dentition Intact and Facial Symmetry
Respiratory: Clear, Normal Excursion and Nonlabored Respirations
Cardiac: S1/S2 and Regular Rate/Rhythm
Abdomen: Soft, Nontender and Nondistended
Musculoskeletal: No Cyanosis and No Edema
Skin: No Rash
Neuro: Nonfocal/Grossly Intact
Psych: Mood/afflect pleasant, Insight/judgement good and Appropriate
Vascular Access: AVF
Data Reviewed
-
Labs: Labs Reviewed by me and Discussed with Patient
Assessment/Plan
-
Assessment:
symptomatic anemia
Ongoing hematuria while patient is on Eliquis.
Right ureteral stent s/p exchange Q2-3m
ESRD TTS at [facility]
PAF on anticoagulation and amiodarone
Anemia of CKD
Chronic hypotension prn midodrine
History prostate cancer locally invasive with history prostatectomy/XRT/hormonal therapy
History ureteral reimplantation
Radiation cystitis
AAA repair 2002
Right total hip replacement
History of horseshoe kidney with nephrolithiasis and chronic hydronephrosis contributing to ESRD
Right upper extremity AV fistula
Plan:
A/w symp anemia 1 unit PRBC today
AC on hold and plan OR tomorrow
will get HD post OR in am
Metabolic pattern medicine within the range
Volume status seems to be stable
He is no longer on the midodrine only uses as needed
High-dose of LENIN with dialysis
Discussed with the patient and urology
--- NOTE | 2025-03-31 14:24 | W.PN.URO.CBU ---
Today's Communication / Plan
-
UTI IN PAST SEND CX PRP FOR AM CYSTO STENT EXCJAGE
Assessment / Plan
-
EDSRD ON DAPT WITH JJ STENT METASTAIC ACP WITH RADAITIONINDUCED CYSTITIS [ HEMORRHAGIC ]] WILL EXCHANGE SYENT AND CHECK FOR CLOT RETENTION AND P CANCER BUT IF BLEEDING PERSIST M,AY NEED TO REMOVE STENT COMPLELT AND OBSERVE OR USE PERC TUBE [
PT WITH PELVIC KIDNEY ]]
Diagnosis
-
Date of Service: March 31, 2025
-
Patient Diagnosis:RADIATION CYTITIS AND OBDSTRUCTED RT URETER WITH ACUTE BLOOD LOSS ANEMIA WITH JJ STENT HEMATURI AAND RAD CYSTITIS , UTIS
Post Op Day:
Subjective
-
NO COLIC NO FEVR NO DYSURIA BUT WEAK
Objective
-
Vital Signs
Temp Pulse Resp BP Pulse Ox
97.9 F 67 16 104/45 97
03/31/25 12:43 03/31/25 14:00 03/31/25 14:00 03/31/25 14:00 03/31/25 14:00
Intake and Output
03/30/25 03/31/25 04/01/25
06:59 06:59 06:59
Intake Total 0 / 0
Balance 0 / 0
Intake:
Blood Product Amount Infused ( 0 / 0
mL)
Packed Rbc Leukoreduced Unit 0 / 0
[id number]
Laboratory Results
03/31/25 09:44
03/31/25 09:44
Review of Systems
-
: Bleeding
Physical Exam
-
General - well developed, well nourished, no acute distress
Chest - clear bilaterally
Abdomen - soft, non-tender, positive bowel sounds, no CVAT, no incisional pain or distention
Genitalia - normal
Rectal - normal
Skin - warm & dry with no rash
Neuro - AOx3, no motor deficits
Extremities - no clubbing, no cyanosis, no edema
Incision - clean, dry
Dressing - clean, dry, intact
Care Review
Data Reviewed
Discussed with: Hospitalist and Nursing
[2025-03-31] MEDS: ProAmatine 10 MG PO (16:10)
[2025-03-31] MEDS: INVANZ 55 MG IV (16:10)
[2025-03-31 17:35] LABS: Urine Albumin 4+ (Neg - Trace); Urine Bilirubin Negative (Negative); Urine Character Bloody (Clear); Urine Color Red; Urine Glucose Negative (Negative); Urine Ketone Negative (Negative); Urine Leukocyte 3+ (Negative); Urine Nitrite Negative (Negative); Urine Occult Blood 4+ (Negative); Urine Urobilinogen Negative (Neg - 1+)
[2025-03-31 17:40] LABS: Urine Red Blood Cell >100 /HPF (0-2); Urine Squamous Cell 0-2 /LPF (Few); Urine White Cell >100 /HPF (0-5)
[2025-03-31] MEDS: ROBITUSSIN 200 MG PO (19:31)
[2025-03-31] MEDS: ZYRTEC 10 MG PO (21:11)
[2025-04-01] VITALS (12 sets, daily range): BP systolic 98–122; BP diastolic 40–59; BMI 25.5
[2025-04-01 07:04] LABS: % Basophils 1.4 % (0-2); % Eosinophils 5.9 % (0-6); % Immature Granulocytes 2.5 % (0-0.5); % Lymphocytes 13.2 % (20.5-51.1); % Monocytes 13.8 % (1.7-9.3); % Neutrophils 63.2 % (42.2-75.2); Absolute Basophils 0.1 10^3/uL (0-0.2); Absolute Eosinophils 0.4 10^3/uL (0-0.7); Absolute Immature Granulocytes 0.2 10^3/uL (0-0.05); Absolute Lymphocytes 0.8 10^3/uL (1.2-3.4); Absolute Monocytes 0.8 10^3/uL (0.1-0.6); Absolute Neutrophils 3.7 10^3/uL (1.4-6.5); Hemoglobin 8.4 g/dL (13.0-18.0); Mean Corp Hgb Conc. 32.3 g/dL (33.0-37.0); Mean Corpuscular Hgb 30.7 pg (27.0-31.0); Mean Corpuscular Volume 94.9 fL (80.0-94.0); Mean Platelet Volume 9.9 fL (7.4-10.4); Nucleated Red Blood Cells % 0.3 % (-); Platelet Count 279 10^3/uL (130-400); Red Blood Cell Count 2.74 10^6/uL (4.70-6.10); Red Cell Dist. Width 18.6 % (11.5-14.5); White Blood Cell Count 5.9 10^3/uL (4.8-10.8)
[2025-04-01] MEDS: ROBITUSSIN 200 MG PO ×2 (07:21→19:44)
[2025-04-01] MEDS: PACERONE 200 MG PO (07:21)
[2025-04-01] MEDS: PROTONIX 40 MG PO (07:21)
[2025-04-01] MEDS: ProAmatine 10 MG PO ×3 (07:23→16:36)
[2025-04-01 08:02] LABS: Blood Urea Nitrogen 21 mg/dl (9-20); Calcium 8.1 mg/dl (8.4-10.2); Carbon Dioxide 27 mmol/L (22-30); Chloride 102 mmol/L (98-107); Estimated Creatinine Clearance 10 ml/min; Glucose 96 mg/dl (70-99); Potassium 3.7 mmol/L (3.5-5.1); Sodium 139 mmol/L (135-145); eGFR 10.44
--- NOTE | 2025-04-01 11:09 | PTCARENOTE ---
Received pt back from PACU, AAOx3, VSS, pt resting comfortably in bed at this time. Diet order placed, updated and in room, made aware of pts return to room.
--- NOTE | 2025-04-01 11:55 | CM ---
CM following re: discharge planning.
Reviewed pt's chart, met with pt and pt's spouse at bedside.
Pt is an 85 year old male, admitted with primary dx of symptomatic anemia, s/p RADIATION CYTITIS AND OBDSTRUCTED RT URETER WITH ACUTE BLOOD LOSS ANEMIA WITH JJ STENT HEMATURI AAND RAD CYSTITIS , UTIS.
Pt reports he lives with spouse in a 2SH, 2 steps to enter, has 3 supportive children. pt reports he ambulates with a walker, has stair glide, grab bars. Pt was at [facility] acute rehab and known to [facility]. Pt is on HD, T, Th and Sat, [place], chair time 9:00 a.m. Pt's spouse stated she transport the pt to and from HD treatment. Pt expressed his desire to return back home at discharge and pt stated he will not need after care services. Pt's spouse supports pt's plan.
AD package provided.
Please fax discharge instructions to [facility] at [phone]
PCP: Haile Mac
Ph[facility]: [facility]
D/C plan: home with anticipated no needs. Pt will resume outpatient HD treatment at [facility].
CM will follow with discharge plan updates as hospitalization progresses
--- NOTE | 2025-04-01 12:32 | W.PN.HOSP.TC ---
Today's Communication/Plan
-
Hold Eliquis.
Continue to type and M adjust dosing with HD.
Follow urine cultures (preliminary gram-negative bacteria)
HD as per schedule
Assessment / Plan
Assessment / Plan
IMPRESSION:
Symptomatic acute on chronic anemia secondary to hematuria and anticoagulation with Eliquis
Other conditions:
End-stage renal disease hemodialysis TTS
Right upper extremity AV fistula
Paroxysmal atrial fibrillation
Anticoagulation with Eliquis
Anemia of chronic disease/CKD
Chronic hypotension requiring midodrine.
History of prostate cancer locally invasive with prostatectomy/XRT/hormonal therapy.
Right ureteral reimplantation
Radiation cystitis
Urinary tract colonization with ESBL pathogens
AAA repair 2002
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
PLAN:
Presents with symptomatic anemia hemoglobin trending down to 8
Ongoing hematuria while patient is on Eliquis.
Denies syncope or chest pain
Transfuse: 1 unit of packed red blood cells ordered in the emergency room.
Hold Eliquis.
Gross hematuria likely multifactorial in the settings of radiation cystitis and possibly UTI
Status post cystoscopy with ureteral stent exchange on 04/01
Given prior history of perioperative UTI and risk for bacterial translocation (patient with history of urinary tract colonization with ESBL pathogens) will continue ertapenem adjusted to renal function and dialysis schedule
Paroxysmal A-fib.
Continue amiodarone
Hold Eliquis
Chronic hypotension requiring midodrine.
End-stage renal disease on HD.
Nephrology consultation
Readjust antibiotics with HD schedule
Full code.
DVT prophylaxis mechanical while off Eliquis.
Anticipated Discharge: 24 - 48 hours
Subjective/Interval History
-
Date of Service: April 01, 2025
Objective Data
-
Labs:
Laboratory Results
04/01/25
06:36
WBC 5.9
Hgb 8.4 L
Hct 26.0 L
Plt Count 279
Sodium 139
Potassium 3.7
Chloride 102
Carbon Dioxide 27
BUN 21 H
Creatinine 5.1 H*
Glucose 96
Calcium 8.1 L
Vital Signs:
Vital Signs
Temp Pulse Resp BP Pulse Ox
97.6 F 67 16 119/53 95
04/01/25 12:00 04/01/25 12:00 04/01/25 12:00 04/01/25 12:00 04/01/25 12:00
I&O
03/31/25 04/01/25 04/02/25
06:59 06:59 06:59
Intake Total 790 / 790 200 / 200
Balance 790 / 790 200 / 200
Physical Exam
-
General: Well Developed and No Apparent Distress
HEENT: Normocephalic, Atraumatic and Moist Mucous Membranes
Respiratory: Clear to Auscultation
Cardiac: Regular Rhythm and S1/S2; Negative Murmur, Rub or Gallop
GI: Soft, Nontender, Nondistended and Normal Bowel Sounds; Negative Organomegaly
Rectal: Deferred by Provider
Musculoskeletal: No Clubbing, No Cyanosis and No Edema
Skin: Negative Rash
Neuro: Nonfocal/Grossly Intact
--- NOTE | 2025-04-01 13:29 | W.SUR.POST ---
Surgical Immediate Post Op
Note
Pre Op Diagnosis: hematuria with radiation cystitis
Post Op Diagnosis:hemattura woth radiation cystis nbut also hemorrhagic cystis uti
Procedure Performed: cysto stent exchange rt jretrograde pyelogram
Primary Surgeon: rik
Secondary Surgeons:
Anesthesia: dr love general
Estimated Blood Loss:2
Fluids:
Drains/Shunts: 6 fr 24 cmm jj stent
Specimens/Cultures:
Doppler/Duplex/Angio (Y/N):
Complications: 0
Operative Findings:
cystist proably due yo jj stent xrt anfd uti
--- NOTE | 2025-04-01 14:23 | W.PN.NEPH.HD ---
Assessment
-
pt seen during HD
vitals stable with midodrine(pt reprotedly was off but resumed few days [employer])
s/p U stent exchange today
cotn abx
AVF function well
Progress Note - Hemodialysis
-
Date of Service: April 01, 2025
Duration: 30 minutes and 3 hours
Potassium Bath: 3
Calcium Bath: 2.5
Opti-Dialyzer: 160
Ultrafiltration: Other (1kg)
Blood Flow: 400
Dialysate Flow: 600
Heparin: no
EPO: 8000
[2025-04-01] MEDS: RETACRIT 8000 UNITS IV (14:43)
[2025-04-01] MEDS: INVANZ 55 MG IV (17:04)
[2025-04-01] MEDS: ZYRTEC 10 MG PO (21:52)
[2025-04-02] VITALS (9 sets, daily range): BP systolic 100–132; BP diastolic 41–58; BMI 25.5
[2025-04-02] MEDS: PACERONE 200 MG PO (07:58)
[2025-04-02] MEDS: PROTONIX 40 MG PO (07:59)
[2025-04-02] MEDS: ProAmatine 10 MG PO ×3 (07:59→16:38)
[2025-04-02] MEDS: ROBITUSSIN 200 MG PO ×2 (08:03→21:37)
[2025-04-02 08:10] LABS: % Basophils 0.4 % (0-2); % Eosinophils 0.1 % (0-6); % Immature Granulocytes 2.9 % (0-0.5); % Lymphocytes 5.4 % (20.5-51.1); % Monocytes 7.9 % (1.7-9.3); % Neutrophils 83.3 % (42.2-75.2); Absolute Immature Granulocytes 0.3 10^3/uL (0-0.05); Absolute Lymphocytes 0.6 10^3/uL (1.2-3.4); Absolute Monocytes 0.9 10^3/uL (0.1-0.6); Absolute Neutrophils 8.9 10^3/uL (1.4-6.5); Hematocrit 24.2 % (39.0-52.0); Hemoglobin 7.6 g/dL (13.0-18.0); Mean Corp Hgb Conc. 31.4 g/dL (33.0-37.0); Mean Corpuscular Hgb 30.6 pg (27.0-31.0); Mean Corpuscular Volume 97.6 fL (80.0-94.0); Mean Platelet Volume 9.9 fL (7.4-10.4); Nucleated Red Blood Cells % 0.4 % (-); Platelet Count 276 10^3/uL (130-400); Red Blood Cell Count 2.48 10^6/uL (4.70-6.10); Red Cell Dist. Width 18.5 % (11.5-14.5); White Blood Cell Count 10.7 10^3/uL (4.8-10.8)
--- NOTE | 2025-04-02 10:15 | W.PN.URO.CBU ---
Today's Communication / Plan
-
FOLLOW URINE CX
Assessment / Plan
-
Esrd JJ STENT METASTAtIC ACP WITH RADIATION INDUCED CYSTITIS [ HEMORRHAGIC ]] stent excHanged and had malodourous urine and findings c/w uti but also radiation cystitis will see if clinically impROVES as uti treated if not then will as
outpatient consider stent removalr
Diagnosis
-
Date of Service: April 02, 2025
-
Patient Diagnosis:
Post Op Day:
Patient Diagnosis:RADIATION CYTITIS AND OBDSTRUCTED RT URETER WITH ACUTE BLOOD LOSS ANEMIA WITH JJ STENT HEMATURI AAND RAD CYSTITIS , UTIS
Post Op Day:
Subjective
-
no fever chills or colic
Objective
-
Vital Signs
Temp Pulse Resp BP Pulse Ox
97.6 F 78 20 102/46 95
04/02/25 07:00 04/02/25 07:59 04/02/25 07:00 04/02/25 07:59 04/02/25 09:40
Intake and Output
04/01/25 04/02/25 04/03/25
06:59 06:59 06:59
Intake Total 790 / 790 1200 / 1200
Output Total 500 / 500
Balance 790 / 790 700 / 700
Intake:
Oral fluids 540 / 540 1000 / 1000
IV fluids (Total) 200 / 200
Normosal 200 / 200
Blood Product Amount Infused ( 250 / 250
mL)
Packed Rbc Leukoreduced Unit 250 / 250
[id number]
Output:
Urine, Voided 500 / 500
Other:
Number of unmeasured voidings 1
How many times incontinent 1
How many times incontinent 4 2
SATURATED amount urine
Laboratory Results
04/02/25 06:52
04/01/25 06:36
Review of Systems
-
: Bleeding
Physical Exam
-
General - well developed, well nourished, no acute distress
Chest - clear bilaterally
Abdomen - soft, non-tender, positive bowel sounds, no CVAT, no incisional pain or distention
Genitalia - normal
Rectal - normal
Skin - warm & dry with no rash
Neuro - AOx3, no motor deficits
Extremities - no clubbing, no cyanosis, no edema
Incision - clean, dry
Dressing - clean, dry, intact
Care Review
Data Reviewed
Discussed with: Hospitalist
--- NOTE | 2025-04-02 11:46 | W.PN.NEPH.PH ---
Today's Communication / Plan
-
Dialysis tomorrow
Assessment/Plan
-
Assessment:
symptomatic anemia
Ongoing hematuria while patient is on Eliquis.
Right ureteral stent s/p exchange Q2-3m
ESRD TTS at [facility]
PAF on anticoagulation and amiodarone
Anemia of CKD
Chronic hypotension prn midodrine
History prostate cancer locally invasive with history prostatectomy/XRT/hormonal therapy
History ureteral reimplantation
Radiation cystitis
AAA repair 2002
Right total hip replacement
History of horseshoe kidney with nephrolithiasis and chronic hydronephrosis contributing to ESRD
Right upper extremity AV fistula
Plan:
A/w symp anemia =transfuse
AC on hold s/p stent exchange
High-dose of LENIN with dialysis
esbl= ertapenem
Dialysis tomorrow= EDW 74.5 kg
-
-
Date of Service: April 02, 2025
CC / HPI / ROS
-
Chief Complaint:
Hematuria
History of Present Illness:
Presents with hematuria weakness and UTI. ESRD TTS
Review of Systems:
No chest pain shortness of breath.
Continues to have hematuria
Labs
-
Labs:
WBC 10.7 10^3/uL (4.8-10.8) 04/02/25 06:52
RBC 2.48 10^6/uL (4.70-6.10) L 04/02/25 06:52
Hgb 7.6 g/dL (13.0-18.0) L 04/02/25 06:52
Hct 24.2 % (39.0-52.0) L 04/02/25 06:52
Plt Count 276 10^3/uL (130-400) 04/02/25 06:52
Sodium 139 mmol/L (135-145) 04/01/25 06:36
Potassium 3.7 mmol/L (3.5-5.1) 04/01/25 06:36
Chloride 102 mmol/L (98-107) 04/01/25 06:36
Carbon Dioxide 27 mmol/L (22-30) 04/01/25 06:36
BUN 21 mg/dl (9-20) H 04/01/25 06:36
Creatinine 5.1 mg/dL (0.7-1.3) H* 04/01/25 06:36
eGFR 10.44 04/01/25 06:36
Glucose 96 mg/dl (70-99) 04/01/25 06:36
Calcium 8.1 mg/dl (8.4-10.2) L 04/01/25 06:36
Albumin 3.9 g/dl (3.5-5.0) 03/31/25 09:44
Physical Exam
-
Vital Signs:
Vital Signs
Temp Pulse Resp BP Pulse Ox
97.7 F 68 20 107/48 98
04/02/25 11:00 04/02/25 11:00 04/02/25 11:00 04/02/25 11:00 04/02/25 11:00
Cardiovascular:: Regular rate and rhythm
Respiratory:: Bilateral: CTA
Lung Excursion:: Normal
Abdomen:: Nontender
Bowel Sounds:: Normal
Extremity Edema:: None: Bilateral:
Brewster Catheter: No
--- NOTE | 2025-04-02 12:49 | W.PN.HOSP.TC ---
Today's Communication/Plan
-
Transfuse to keep hemoglobin above 8
Continue IV antibiotics for ESBL E. coli
ID consult
HD as per schedule
Assessment / Plan
Assessment / Plan
IMPRESSION:
Symptomatic acute on chronic anemia secondary to hematuria and anticoagulation with Eliquis
Complicated UTI
Other conditions:
End-stage renal disease hemodialysis TTS
Right upper extremity AV fistula
Paroxysmal atrial fibrillation
Anticoagulation with Eliquis
Anemia of chronic disease/CKD
Chronic hypotension requiring midodrine.
History of prostate cancer locally invasive with prostatectomy/XRT/hormonal therapy.
Right ureteral reimplantation
Radiation cystitis
Urinary tract colonization with ESBL pathogens
AAA repair 2002
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
PLAN:
Presents with symptomatic anemia hemoglobin trending down to 8
Ongoing hematuria while patient is on Eliquis.
Denies syncope or chest pain
Hemoglobin trending down to 7.6 today while no further hematuria noted overnight.
Transfuse additional 1 unit of packed red blood cells
Gross hematuria likely multifactorial in the settings of radiation cystitis and UTI
Cystoscopy with JJ stent exchange in 04/01. Foul-smelling urine with changes in the bladder consistent likely with infection as well as radiation cystitis.
Urine culture confirmed ESBL E. coli.
Has been on Invanz since admission. Dose has been adjusted to HD schedule.
Will ask ID comment
Paroxysmal A-fib.
Continue amiodarone
Hold Eliquis
Chronic hypotension requiring midodrine.
End-stage renal disease on HD.
Nephrology consultation
Readjust antibiotics with HD schedule
Full code.
DVT prophylaxis mechanical while off Eliquis.
Anticipated Discharge: 24 - 48 hours
Subjective/Interval History
-
Date of Service: April 02, 2025
Objective Data
-
Labs:
Laboratory Results
04/02/25
06:52
WBC 10.7
Hgb 7.6 L
Hct 24.2 L
Plt Count 276
Vital Signs:
Vital Signs
Temp Pulse Resp BP Pulse Ox
97.6 F 68 16 106/48 97
04/02/25 12:30 04/02/25 12:30 04/02/25 12:30 04/02/25 12:30 04/02/25 12:30
I&O
04/01/25 04/02/25 04/03/25
06:59 06:59 06:59
Intake Total 790 / 790 1200 / 1200 0 / 0
Output Total 500 / 500
Balance 790 / 790 700 / 700 0 / 0
Physical Exam
-
General: Well Developed and No Apparent Distress
HEENT: Normocephalic, Atraumatic and Moist Mucous Membranes
Respiratory: Clear to Auscultation
Cardiac: Regular Rhythm and S1/S2; Negative Murmur, Rub or Gallop
GI: Soft, Nontender, Nondistended and Normal Bowel Sounds; Negative Organomegaly
Rectal: Deferred by Provider
Musculoskeletal: No Clubbing, No Cyanosis and No Edema
Skin: Negative Rash
Neuro: Nonfocal/Grossly Intact
--- NOTE | 2025-04-02 14:01 | CM ---
CM following re: discharge planning.
Reviewed pt's chart, met with pt and pt's spouse at bedside.
Pt is s/p RADIATION CYTITIS AND OBDSTRUCTED RT URETER WITH ACUTE BLOOD LOSS ANEMIA WITH JJ STENT HEMATURI AAND RAD CYSTITIS , UTIS.
Pt lives with spouse in a 2SH, 2 steps to enter, has 3 supportive children, ambulates with a walker, has stair glide, grab bars. Pt was at [facility] acute rehab and known to [facility]. Pt is on HD, T, Th and Sat, [facility], chair time 9:00
a.m. Pt's spouse stated she transport the pt to and from HD treatment. Pt expressed his desire to return back home at discharge and pt stated he will not need after care services. Pt's spouse supports pt's plan.
Please fax discharge instructions to [facility] at [phone]
D/C plan: home with anticipated no needs. Pt will resume outpatient HD treatment at [facility].
CM will follow with discharge plan updates as hospitalization progresses
--- NOTE | 2025-04-02 15:27 | CON.ID ---
Consultation
-
Date/Time Consultation Requested: April 02, 2025 1018
Date/Time Consultation Performed: April 02, 2025 1530
Requesting Provider: Dr. Zaid Worthington
Performing Provider: Dr. Hansa Sheets
Reason for Consultation: Stent change, ESBL UTI
Chief Complaint / Past History
Chief Complaint
Weakness
History of Present Illness
85year old male with past medical history of metastatic prostate cancer s/p radical prostatectomy, XRT and hormone therapy. Additionally, he has ESRD-HD, nephrolithiasis/chronic obstructive uropathy, with a chronic right ureteral stent exchanged
every 2-3 months . He has history of ESBL E. coli colonization in the urine. Patient states that he has been having gross hematuria for about a month. Gross hematuria due to radiation cystitis per urology. On March 30, patient was feeling weaker
and fatigued. He asked for CBC blood work while at dialysis. Result showed hemoglobin of 7. He therefore came to the hospital. On March 31, he was taken to the OR for cystoscopy and found to have a very foul-smelling urine, the entire bladder was
similar to the past, double-J stent exchanged. The urine culture grew ESBL E. coli. Patient reports he continues to have gross hematuria. Otherwise no fevers or chills.
Past History
Additional Past Medical History:
ESRD�HD via RUE AV fistula
HTN
Paroxysmal A-fib
Metastatic prostate cancer s/p rad prostatectomy, XRT and hormone therapy
Radiation cystitis
Horseshoe kidney
Nephrolithiasis/chronic obstructive uropathy with chronic right ureteral stent
Left ureteral stricture
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
AAA repair
Hiatal hernia repair
Right hip replacement s/p fall with fracture s/p revision/ORIF at [place] (09/28)
Allergy History:
iron (From Venofer) Allergy (Verified 01/14/25 08:20)
syncope/rigors 'almost passed out'
Medications Reviewed: Yes
Current Antibiotics:
Preop vancomycin and gentamicin
Social History
Tobacco: Non-Smoker
Alcohol: None
Drug: None
Personal:
Living: With Family
Family History
Family History: Not Pertinent
Review of Systems
Review of Systems
General: Negative Fever, Chills or Change in Appetite
HEENT: Negative Sinus Problems or Headache
Respiratory: Negative Dyspnea or Cough
Genital / Urological: Negative Dysuria or Flank Pain
Endocrine: Weakness and Fatigue
All systems: All other systems were reviewed and were negative
Vital Signs
Temp Pulse Resp BP Pulse Ox
97.5 F 69 18 105/45 95
04/02/25 12:51 04/02/25 12:51 04/02/25 12:51 04/02/25 12:51 04/02/25 12:51
Physical Exam
Physical Exam
Constitutional: No Acute Distress and Comfortable
Eyes: No Conjunctival Hemorrhage and Sclera Anicteric
Cardiovascular: Regular Rate and S1/S2
Pulmonary: Clear
Gastrointestinal: Soft, Non Tender, Non Distended and Normal Bowel Sounds
Extremities: Negative Edema
Neurological: AO x 3
Lab / Diagnostic Study Results
04/02/25 06:52
04/01/25 06:36
Abs Immat Gran (auto) 0.3 10^3/uL (0-0.05) H 04/02/25 06:52
Absolute Neuts (auto) 8.9 10^3/uL (1.4-6.5) H 04/02/25 06:52
Absolute Lymphs (auto) 0.6 10^3/uL (1.2-3.4) L 04/02/25 06:52
Absolute Monos (auto) 0.9 10^3/uL (0.1-0.6) H 04/02/25 06:52
Absolute Basos (auto) 0.0 10^3/uL (0-0.2) 04/02/25 06:52
Immature Gran % 2.9 % (0-0.5) H 04/02/25 06:52
Neutrophils % 83.3 % (42.2-75.2) H 04/02/25 06:52
Lymphocytes % 5.4 % (20.5-51.1) L 04/02/25 06:52
Monocytes % 7.9 % (1.7-9.3) 04/02/25 06:52
Eosinophils % 0.1 % (0-6) 04/02/25 06:52
Basophils % 0.4 % (0-2) 04/02/25 06:52
PT 14.8 Sec (11.4-14.6) H 03/31/25 09:44
INR 1.11 03/31/25 09:44
Ur Squamous Epith Cells 0-2 /LPF (Few) 03/31/25 16:52
Microbiology Results
Micro:
03/31/25 16:52 Urine Culture - Final
Urine Escherichia coli - ESBL
Assessment / Plan
# MDR ESBL-E.coli UTI (noted during cystoscopy)
# Gross hematuria from UTI vs radiation cystitis
# Blood loss anemia
# ESRD on HD
# hx Nephrolithiasis/chronic obstructive uropathy with chronic right ureteral stent
# hx Metastatic prostate cancer s/p rad prostatectomy, XRT and hormone therapy
- s/p right ureter stent change 03/31/25
- Give last dose ertapenem today (d3)
- Tomorrow, give gentamicin load 150mg IV x 1 after HD.
Then 110 mg IV qTuThSat with dialysis, last dose 04/15/25.
Check gent level pre-HD on 04/10. If gent level >2, hold one dose, then reduce dose to 75mg IV TuTh/Sat.
- Infusion script for dialysis placed in chart and informed embedded case manager.
- If stable, can dc home after HD/gentamicin dose tomorrow.
- Continue contact isolation
#Conditions STONEMASON
ESRD�HD via RUE AV fistula
HTN
Paroxysmal A-fib
Metastatic prostate cancer s/p rad prostatectomy, XRT and hormone therapy
Radiation cystitis
Horseshoe kidney
Nephrolithiasis/chronic obstructive uropathy with chronic right ureteral stent
Left ureteral stricture
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
AAA repair
Hiatal hernia repair
Right hip replacement s/p fall with fracture s/p revision/ORIF at [place] (09/28)
--- NOTE | 2025-04-02 16:06 | PTCARENOTE ---
Patient received 1 unit PRBCs. No s/s of transfusion reaction noted at this time. Px: 97% RA. Call berger within reach. Plan of care ongoing.
[2025-04-02] MEDS: INVANZ 55 MG IV (16:38)
[2025-04-02] MEDS: ZYRTEC 10 MG PO (21:37)
[2025-04-03 03:04] VITALS: BP 121/51
[2025-04-03] MEDS: TYLENOL 650 MG PO (03:21)
[2025-04-03 04:30] VITALS: BP 109/43
[2025-04-03] MEDS: TYLENOL 500 MG PO (04:50)
--- NOTE | 2025-04-03 04:57 | PTCARENOTE ---
Patient had a temp of 100.6 about 03:30 no Tylenol ordered reached out to Bertha AGUILAR, gave two Tylenol per orders, patient also noted to have either his stent or wiring protruding out about an inch now, RN did not notice that earlier during
brief change nor got that in report from daysel RN, patient also still with hematuria, Reached out to LAUREN again to notify of findings she suggested to notify [employer] special education teacher urology, [place] Text sent to [employer] special education teacher Urologist at 04:45. patients temp also
spiked up to 101.9 an hour after Tylenol was given, LAUREN gave one more dose of Tylenol 500mg to be given. Awaiting response from Urology.
[2025-04-03 05:42] VITALS: BMI 26.1
--- NOTE | 2025-04-03 06:16 | PTCARENOTE ---
[place] text received back from contact manager urologist at 5:57, Dr. Jaiden Hanson, believes the black wiring that is protruding is a string, ordered a KUB for this AM to check stent placement.
[2025-04-03 07:05] VITALS: BP 88/45
[2025-04-03] MEDS: ProAmatine 10 MG PO ×3 (07:31→17:02)
[2025-04-03 08:02] LABS: % Basophils 0.6 % (0-2); % Eosinophils 1.8 % (0-6); % Immature Granulocytes 3.6 % (0-0.5); % Lymphocytes 11.5 % (20.5-51.1); % Monocytes 14.6 % (1.7-9.3); % Neutrophils 67.9 % (42.2-75.2); Absolute Basophils 0.1 10^3/uL (0-0.2); Absolute Eosinophils 0.1 10^3/uL (0-0.7); Absolute Immature Granulocytes 0.3 10^3/uL (0-0.05); Absolute Lymphocytes 0.9 10^3/uL (1.2-3.4); Absolute Monocytes 1.1 10^3/uL (0.1-0.6); Absolute Neutrophils 5.3 10^3/uL (1.4-6.5); Hematocrit 26.5 % (39.0-52.0); Hemoglobin 8.5 g/dL (13.0-18.0); Mean Corp Hgb Conc. 32.1 g/dL (33.0-37.0); Mean Corpuscular Hgb 29.9 pg (27.0-31.0); Mean Corpuscular Volume 93.3 fL (80.0-94.0); Mean Platelet Volume 9.8 fL (7.4-10.4); Nucleated Red Blood Cells % 0.6 % (-); Platelet Count 232 10^3/uL (130-400); Red Blood Cell Count 2.84 10^6/uL (4.70-6.10); Red Cell Dist. Width 19.9 % (11.5-14.5); White Blood Cell Count 7.7 10^3/uL (4.8-10.8)
[2025-04-03] MEDS: RETACRIT 10000 UNITS IV (08:17)
[2025-04-03] MEDS: MANNITOL 25% 12.5 GRAMS IV ×2 (08:35→10:04)
[2025-04-03] MEDS: FLEXBUMIN 25% FOR HEMODIALYSIS 12.5 GRAMS IV ×2 (08:35→10:04)
[2025-04-03 08:51] LABS: Blood Urea Nitrogen 29 mg/dl (9-20); Calcium 7.8 mg/dl (8.4-10.2); Carbon Dioxide 25 mmol/L (22-30); Chloride 104 mmol/L (98-107); Estimated Creatinine Clearance 11 ml/min; Glucose 95 mg/dl (70-99); Potassium 4.3 mmol/L (3.5-5.1); Sodium 137 mmol/L (135-145); eGFR 11.52
--- NOTE | 2025-04-03 09:40 | W.PN.HOSP.TC ---
Today's Communication/Plan
-
f/w ID recommendation
Midodrine this AM
Assessment / Plan
Assessment / Plan
Physical Exam
-
General: Well Developed and No Apparent Distress, undergoing HD
HEENT: Normocephalic, Atraumatic and Moist Mucous Membranes
Respiratory: no wheezes.
Cardiac: Regular Rhythm and S1/S2; Negative Murmur, Rub or Gallop
GI: Soft, Nontender, Nondistended
Rectal: no bleeding
Musculoskeletal: No Clubbing, No Cyanosis and No Edema
Skin: Negative Rash
Neuro: Nonfocal/Grossly Intact
Psych: calm
IMPRESSION:
Symptomatic acute on chronic anemia secondary to hematuria and anticoagulation with Eliquis
Complicated UTI
Other conditions:
End-stage renal disease hemodialysis TTS
Right upper extremity AV fistula
Paroxysmal atrial fibrillation
Anticoagulation with Eliquis
Anemia of chronic disease/CKD
Chronic hypotension requiring midodrine.
History of prostate cancer locally invasive with prostatectomy/XRT/hormonal therapy.
Right ureteral reimplantation
Radiation cystitis
Urinary tract colonization with ESBL pathogens
AAA repair 2002
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
PLAN:
Presents with symptomatic anemia hemoglobin trending down to 8
Ongoing hematuria while patient is on Eliquis.
Denies syncope or chest pain
Hemoglobin trending down to 7.6 today while no further hematuria noted overnight.
Transfuse additional 1 unit of packed red blood cells
# MDR ESBL-E.coli UTI (noted during cystoscopy) related to stent
Gross hematuria likely multifactorial in the settings of radiation cystitis and UTI
Cystoscopy with JJ stent exchange in 04/01. Foul-smelling urine with changes in the bladder consistent likely with infection as well as radiation cystitis.
Urine culture confirmed ESBL E. coli.
Repeat KUB: ureteral stent well-positioned.
Per iD: Last dose ertapenem 04/02/25
- For gentamicin load 150mg IV x 1 after HD today
Then 110 mg IV qTuThSat with dialysis, through 04/15/25.
Check gent level pre-HD on 04/10. If gent level >2, hold one dose, then reduce dose to 75mg IV Tu/Th/Sat.
- Infusion script for dialysis placed in chart and informed patient case coordinator.
Appreciate urology & ID help
Paroxysmal A-fib.
Continue amiodarone
Hold Eliquis
Chronic hypotension requiring midodrine.
End-stage renal disease on HD.
Nephrology consultation appreciated
Chronic hypotension, c/w midodrine
Full code.
DVT prophylaxis mechanical while off Eliquis.
Total time spent to see the patient, examine the patient, review data and lab result, discuss treatment plan with patient, nursing staff around 55 minutes
Anticipated Discharge: > 48 hours
Subjective/Interval History
-
Date of Service: April 03, 2025
\\No chest pain
No sob
Objective Data
-
Labs:
Laboratory Results
04/03/25
07:36
WBC 7.7
Hgb 8.5 L
Hct 26.5 L
Plt Count 232
Sodium 137
Potassium 4.3
Chloride 104
Carbon Dioxide 25
BUN 29 H
Creatinine 4.7 H*
Glucose 95
Calcium 7.8 L
Vital Signs:
Vital Signs
Temp Pulse Resp BP Pulse Ox
99.2 F 65 18 88/45 94
04/03/25 07:05 04/03/25 07:05 04/03/25 07:05 04/03/25 07:05 04/03/25 07:05
I&O
04/02/25 04/03/25 04/04/25
06:59 06:59 06:59
Intake Total 1200 / 1200 1275 / 1275
Output Total 500 / 500 500 / 500
Balance 700 / 700 775 / 775
--- NOTE | 2025-04-03 09:55 | W.PN.ID1 ---
Date of Service
Date of Service: April 03, 2025
Today's Communication
Continue antibiotics; see below
Assessment / Plan
# MDR ESBL-E.coli UTI (noted during cystoscopy)
# Fever
# Gross hematuria from UTI vs radiation cystitis
# Blood loss anemia
# ESRD on HD
# hx Nephrolithiasis/chronic obstructive uropathy with chronic right ureteral stent
# hx Metastatic prostate cancer s/p rad prostatectomy, XRT and hormone therapy
- s/p right ureter stent change 03/31/25
- Last dose ertapenem 04/02/25
- For gentamicin load 150mg IV x 1 after HD today
Then 110 mg IV qTuThSat with dialysis, through 04/15/25.
Check gent level pre-HD on 04/10. If gent level >2, hold one dose, then reduce dose to 75mg IV //Sat.
- Infusion script for dialysis placed in chart and informed spring encaser.
- Follow temperatures
- Continue contact isolation
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
ESRD�HD via RUE AV fistula
HTN
Paroxysmal A-fib
Metastatic prostate cancer s/p rad prostatectomy, XRT and hormone therapy
Radiation cystitis
Horseshoe kidney
Nephrolithiasis/chronic obstructive uropathy with chronic right ureteral stent
Left ureteral stricture
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
AAA repair
Hiatal hernia repair
Right hip replacement s/p fall with fracture s/p revision/ORIF at [place] (09/28)
Chief Complaint
-: Fever and Bacteremia
Subjective / Review of Systems
Patient seen and examined. No specific complaints this a.m. Currently on hemodialysis. Fevers noted overnight.
Review of Systems: Fever and No Abdominal Pain
Vital Signs / Physical Exam
Vital Signs
Vital Signs
Temp Pulse Resp BP Pulse Ox
99.2 F 65 18 88/45 94
04/03/25 07:05 04/03/25 07:05 04/03/25 07:05 04/03/25 07:05 04/03/25 07:05
Physical Exam
Constitutional: No Acute Distress, Comfortable, Chronically Ill and Non-toxic
Eyes: Sclera Anicteric
Cardiovascular: S1/S2; Negative S3/S4
Pulmonary: Non Labored
Gastrointestinal: Soft, Non Tender and Non Distended
Skin: Negative Rash or Jaundice
Neurological: Awake and Alert
Psychological: Calm
Objective Data
Lab Data
Lab Results
04/03/25 07:36
04/03/25 07:36
PT 14.8 Sec (11.4-14.6) H 03/31/25 09:44
INR 1.11 03/31/25 09:44
APTT 41.9 Sec (23.4-35.0) H 03/31/25 09:44
Estimated Creat Clear 11 ml/min 04/03/25 07:36
Total Bilirubin 0.7 mg/dl (0.2-1.3) 03/31/25 09:44
AST 25 U/L (17-59) 03/31/25 09:44
ALT 14 U/L (0-50) 03/31/25 09:44
Alkaline Phosphatase 117 U/L (38-126) 03/31/25 09:44
Most recent labs reviewed.
Micro Results:
03/31/25 16:52 Urine Culture - Final
Urine Escherichia coli - ESBL
Urine Culture Final 04/02/25-1049
CC: Greater than 100,000 CFU/ML Escherichia coli - ESBL
Organism 1 Escherichia coli - ESBL
1. Escherichia coli - ESBL
M.I.C. RX
--------- ---
Amoxicillin/Potas. Clavulanate 16/8 I
Ampicillin >16 R
Ampicillin/Sulbactam >16/8 R
Aztreonam 16 R
Cefazolin >16 R
Cefepime >16 R
Ceftazidime 16 R
Ceftriaxone >2 R
Ertapenem <=0.5 S
Ciprofloxacin >2 R
Gentamicin <=2 S
Meropenem <=1 S
Nitrofurantoin-Urine Only <=32 S
Piperacillin/Tazobactam <=8 S
Tetracycline >8 R
Tobramycin 4 S
Trimethoprim/Sulfamethoxazole >2/38 R
[2025-04-03 11:05] VITALS: BP 94/50
[2025-04-03] MEDS: PROTONIX 40 MG PO (11:55)
[2025-04-03] MEDS: PACERONE 200 MG PO (11:55)
[2025-04-03] MEDS: ROBITUSSIN 200 MG PO ×2 (11:55→19:57)
[2025-04-03] MEDS: GENTAMICIN 53.75 MG IV (11:55)
--- NOTE | 2025-04-03 12:09 | W.PN.UPDATE ---
Update Note
Progress Note Update
O/n RN concerned about stent displacement this AM.
KUB ordered and reviewed => ureteral stent well-positioned.
Fevers noted o/n to 102F.
Continue IV antibiotics per ID.
--- NOTE | 2025-04-03 12:44 | W.PN.NEPH.HD ---
Progress Note - Hemodialysis
-
Date of Service: April 03, 2025
Duration: 30 minutes and 3 hours
Potassium Bath: 3
Calcium Bath: 2.5
Opti-Dialyzer: 160
Ultrafiltration: Other (1kg)
Blood Flow: 400
Dialysate Flow: 600
Heparin: no
EPO: 8000
--- NOTE | 2025-04-03 12:44 | W.PN.NEPH.PH ---
Today's Communication / Plan
-
Dialysis today
Assessment/Plan
-
Assessment:
symptomatic anemia
Ongoing hematuria while patient is on Eliquis.
Right ureteral stent s/p exchange Q2-3m
ESRD TTS at [facility]
PAF on anticoagulation and amiodarone
Anemia of CKD
Chronic hypotension prn midodrine
History prostate cancer locally invasive with history prostatectomy/XRT/hormonal therapy
History ureteral reimplantation
Radiation cystitis
AAA repair 2002
Right total hip replacement
History of horseshoe kidney with nephrolithiasis and chronic hydronephrosis contributing to ESRD
Right upper extremity AV fistula
Plan:
A/w symp anemia = post transfuse
AC on hold s/p stent exchange
LENIN with dialysis
ESBL E. coli UTI = discussed with ID/gentamicin TTS postdialysis
EDW 74.5 kg
-
-
Date of Service: April 03, 2025
CC / HPI / ROS
-
Chief Complaint:
Hematuria
History of Present Illness:
Presents with hematuria weakness and UTI. ESRD TTS
Review of Systems:
No chest pain shortness of breath.
Continues to have hematuria
Febrile this morning
Labs
-
Labs:
WBC 7.7 10^3/uL (4.8-10.8) 04/03/25 07:36
RBC 2.84 10^6/uL (4.70-6.10) L 04/03/25 07:36
Hgb 8.5 g/dL (13.0-18.0) L 04/03/25 07:36
Hct 26.5 % (39.0-52.0) L 04/03/25 07:36
Plt Count 232 10^3/uL (130-400) 04/03/25 07:36
Sodium 137 mmol/L (135-145) 06/28/25 07:36
Potassium 4.3 mmol/L (3.5-5.1) 04/03/25 07:36
Chloride 104 mmol/L (98-107) 04/03/25 07:36
Carbon Dioxide 25 mmol/L (22-30) 04/03/25 07:36
BUN 29 mg/dl (9-20) H 04/03/25 07:36
Creatinine 4.7 mg/dL (0.7-1.3) H* 04/03/25 07:36
eGFR 11.52 04/03/25 07:36
Glucose 95 mg/dl (70-99) 04/03/25 07:36
Calcium 7.8 mg/dl (8.4-10.2) L 04/03/25 07:36
Albumin 3.9 g/dl (3.5-5.0) 03/31/25 09:44
Physical Exam
-
Vital Signs:
Vital Signs
Temp Pulse Resp BP Pulse Ox
98.1 F 64 18 94/50 96
04/03/25 11:05 04/03/25 11:05 04/03/25 11:05 04/03/25 11:05 04/03/25 11:05
Cardiovascular:: Regular rate and rhythm
Respiratory:: Bilateral: CTA
Lung Excursion:: Normal
Abdomen:: Nontender
Bowel Sounds:: Normal
Extremity Edema:: None: Bilateral:
B[place]ster Catheter: No
[2025-04-03 16:05] VITALS: BP 105/53
[2025-04-03] MEDS: ZYRTEC 10 MG PO (21:27)
[2025-04-03 23:11] VITALS: BP 125/51
[2025-04-04 05:27] VITALS: BMI 25.6
[2025-04-04 07:05] VITALS: BP 106/41
[2025-04-04] MEDS: ROBITUSSIN 200 MG PO ×2 (07:34→20:16)
[2025-04-04] MEDS: PACERONE 200 MG PO (07:35)
[2025-04-04] MEDS: ProAmatine 10 MG PO ×3 (07:35→16:41)
[2025-04-04] MEDS: PROTONIX 40 MG PO (07:35)
--- NOTE | 2025-04-04 09:13 | W.PN.HOSP.TC ---
Today's Communication/Plan
-
.
Assessment / Plan
Assessment / Plan
Physical Exam
-
General: Well Developed and No Apparent Distress, undergoing HD
HEENT: Normocephalic, Atraumatic and Moist Mucous Membranes
Respiratory: no wheezes.
Cardiac: Regular Rhythm and S1/S2; Negative Murmur, Rub or Gallop
GI: Soft, Nontender, Nondistended
Rectal: no bleeding
Musculoskeletal: No Clubbing, No Cyanosis and No Edema
Skin: Negative Rash
Neuro: Nonfocal/Grossly Intact
Psych: calm
IMPRESSION:
Symptomatic acute on chronic anemia secondary to hematuria and anticoagulation with Eliquis
Complicated UTI
Other conditions:
End-stage renal disease hemodialysis TTS
Right upper extremity AV fistula
Paroxysmal atrial fibrillation
Anticoagulation with Eliquis
Anemia of chronic disease/CKD
Chronic hypotension requiring midodrine.
History of prostate cancer locally invasive with prostatectomy/XRT/hormonal therapy.
Right ureteral reimplantation
Radiation cystitis
Urinary tract colonization with ESBL pathogens
AAA repair 2002
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
PLAN:
Presents with symptomatic anemia hemoglobin trending down to 8
Ongoing hematuria while patient is on Eliquis.
Denies syncope or chest pain
Hemoglobin trending down to 7.6 today while no further hematuria noted overnight.
Transfuse additional 1 unit of packed red blood cells
# MDR ESBL-E.coli UTI (noted during cystoscopy) related to stent
Gross hematuria likely multifactorial in the settings of radiation cystitis and UTI
Cystoscopy with JJ stent exchange in 04/01. Foul-smelling urine with changes in the bladder consistent likely with infection as well as radiation cystitis.
Urine culture confirmed ESBL E. coli.
Repeat KUB: ureteral stent well-positioned.
Per iD: Last dose ertapenem 04/02/25
- For gentamicin load 150mg IV x 1 after HD today
Then 110 mg IV qTuThSat with dialysis, through 04/15/25.
Check gent level pre-HD on 04/10. If gent level >2, hold one dose, then reduce dose to 75mg IV Tu/Th/Sat.
- Infusion script for dialysis placed in chart and informed manager rn case.
Appreciate urology & ID help
Paroxysmal A-fib.
Continue amiodarone
Hold Eliquis
Chronic hypotension requiring midodrine.
End-stage renal disease on HD.
Nephrology consultation appreciated
Chronic hypotension, c/w midodrine
Full code.
DVT prophylaxis mechanical while off Eliquis.
Total time spent to see the patient, examine the patient, review data and lab result, discuss treatment plan with patient, nursing staff around 55 minutes
Anticipated Discharge: 24 - 48 hours
Subjective/Interval History
-
Date of Service: April 04, 2025
No complaints
Objective Data
-
Vital Signs:
Vital Signs
Temp Pulse Resp BP Pulse Ox
98.9 F 68 18 106/41 95
04/04/25 07:05 04/04/25 07:35 04/04/25 07:05 04/04/25 07:35 04/04/25 07:05
I&O
04/03/25 04/04/25 04/05/25
06:59 06:59 06:59
Intake Total 1275 / 1275 360 / 360
Output Total 500 / 500 100 / 100
Balance 775 / 775 260 / 260
--- NOTE | 2025-04-04 09:34 | W.PN.ID1 ---
Date of Service
Date of Service: April 04, 2025
Today's Communication
Continue antibiotics.
Assessment / Plan
# MDR ESBL E.coli UTI (noted during cystoscopy)
# Fever
# Gross hematuria from UTI vs radiation cystitis
# Blood loss anemia
# ESRD on HD
# hx Nephrolithiasis/chronic obstructive uropathy with chronic right ureteral stent
# hx Metastatic prostate cancer s/p rad prostatectomy, XRT and hormone therapy
- s/p right ureter stent change 03/31/25
- Last dose ertapenem 04/02/25
- Received gentamicin load 150mg IV x 1 after HD (04/03)
- to receive Gent 110 mg IV qTuThSat with dialysis, through 04/15/25.
- Check gent level pre-HD on 04/10. If gent level >2, hold one dose, then reduce dose to 75mg IV //Sat.
- Infusion script for dialysis placed in chart and informed briefcase sewer.
- Follow temperatures
- Continue contact isolation
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
ESRD�HD via RUE AV fistula
HTN
Paroxysmal A-fib
Metastatic prostate cancer s/p rad prostatectomy, XRT and hormone therapy
Radiation cystitis
Horseshoe kidney
Nephrolithiasis/chronic obstructive uropathy with chronic right ureteral stent
Left ureteral stricture
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
AAA repair
Hiatal hernia repair
Right hip replacement s/p fall with fracture s/p revision/ORIF at [place] (09/28)
Chief Complaint
-: Fever and Bacteremia
Subjective / Review of Systems
Review of Systems: No Fever, No Chills and No Abdominal Pain
Vital Signs / Physical Exam
Vital Signs
Vital Signs
Temp Pulse Resp BP Pulse Ox
98.9 F 68 18 106/41 95
04/04/25 07:05 04/04/25 07:35 04/04/25 07:05 04/04/25 07:35 04/04/25 07:05
Physical Exam
Constitutional: No Acute Distress, Comfortable, Chronically Ill and Non-toxic
Eyes: Sclera Anicteric
Cardiovascular: S1/S2; Negative S3/S4
Pulmonary: Non Labored
Gastrointestinal: Soft, Non Tender and Non Distended
Skin: Negative Rash or Jaundice
Neurological: Awake and Alert
Psychological: Calm
Objective Data
Lab Data
Lab Results
04/03/25 07:36
04/03/25 07:36
PT 14.8 Sec (11.4-14.6) H 03/31/25 09:44
INR 1.11 03/31/25 09:44
APTT 41.9 Sec (23.4-35.0) H 03/31/25 09:44
Estimated Creat Clear 11 ml/min 04/03/25 07:36
Total Bilirubin 0.7 mg/dl (0.2-1.3) 03/31/25 09:44
AST 25 U/L (17-59) 03/31/25 09:44
ALT 14 U/L (0-50) 03/31/25 09:44
Alkaline Phosphatase 117 U/L (38-126) 03/31/25 09:44
Most recent labs reviewed.
Micro Results:
03/31/25 16:52 Urine Culture - Final
Urine Escherichia coli - ESBL
Urine Culture Final 04/02/25-1049
CC: Greater than 100,000 CFU/ML Escherichia coli - ESBL
Organism 1 Escherichia coli - ESBL
1. Escherichia coli - ESBL
M.I.C. RX
--------- ---
Amoxicillin/Potas. Clavulanate 16/8 I
Ampicillin >16 R
Ampicillin/Sulbactam >16/8 R
Aztreonam 16 R
Cefazolin >16 R
Cefepime >16 R
Ceftazidime 16 R
Ceftriaxone >2 R
Ertapenem <=0.5 S
Ciprofloxacin >2 R
Gentamicin <=2 S
Meropenem <=1 S
Nitrofurantoin-Urine Only <=32 S
Piperacillin/Tazobactam <=8 S
Tetracycline >8 R
Tobramycin 4 S
Trimethoprim/Sulfamethoxazole >2/38 R
Care Review
Plan reviewed with: Physician (Nephrology)
--- NOTE | 2025-04-04 12:29 | W.PN.NEPH.PH ---
Today's Communication / Plan
-
Dialysis Saturday
Assessment/Plan
-
Assessment:
symptomatic anemia
Ongoing hematuria while patient is on Eliquis.
Right ureteral stent s/p exchange Q2-3m
ESRD TTS at [facility]
PAF on anticoagulation and amiodarone
Anemia of CKD
Chronic hypotension prn midodrine
History prostate cancer locally invasive with history prostatectomy/XRT/hormonal therapy
History ureteral reimplantation
Radiation cystitis
AAA repair 2002
Right total hip replacement
History of horseshoe kidney with nephrolithiasis and chronic hydronephrosis contributing to ESRD
Right upper extremity AV fistula
Plan:
A/w symp anemia = post transfuse
AC on hold s/p stent exchange
LENIN with dialysis
ESBL E. coli UTI = discussed with ID/gentamicin TTS postdialysis
EDW 74.5 kg
No acute for no acute need for dialysis today
-
-
Date of Service: April 04, 2025
CC / HPI / ROS
-
Chief Complaint:
Hematuria
History of Present Illness:
Presents with hematuria weakness and UTI. ESRD TTS
Review of Systems:
No chest pain shortness of breath.
Continues to have hematuria But improving
Febrile this morning
Labs
-
Labs:
WBC 7.7 10^3/uL (4.8-10.8) 04/03/25 07:36
RBC 2.84 10^6/uL (4.70-6.10) L 04/03/25 07:36
Hgb 8.5 g/dL (13.0-18.0) L 04/03/25 07:36
Hct 26.5 % (39.0-52.0) L 04/03/25 07:36
Plt Count 232 10^3/uL (130-400) 04/03/25 07:36
Sodium 137 mmol/L (135-145) 04/03/25 07:36
Potassium 4.3 mmol/L (3.5-5.1) 04/03/25 07:36
Chloride 104 mmol/L (98-107) 04/03/25 07:36
Carbon Dioxide 25 mmol/L (22-30) 04/03/25 07:36
BUN 29 mg/dl (9-20) H 04/03/25 07:36
Creatinine 4.7 mg/dL (0.7-1.3) H* 04/03/25 07:36
eGFR 11.52 04/03/25 07:36
Glucose 95 mg/dl (70-99) 04/03/25 07:36
Calcium 7.8 mg/dl (8.4-10.2) L 04/03/25 07:36
Albumin 3.9 g/dl (3.5-5.0) 03/31/25 09:44
Physical Exam
-
Vital Signs:
Vital Signs
Temp Pulse Resp BP Pulse Ox
98.9 F 68 18 106/41 95
04/04/25 07:05 04/04/25 07:35 04/04/25 07:05 04/04/25 07:35 04/04/25 10:17
Cardiovascular:: Regular rate and rhythm
Respiratory:: Bilateral: CTA
Lung Excursion:: Normal
Abdomen:: Nontender
Bowel Sounds:: Normal
Extremity Edema:: None: Bilateral:
Brewster Catheter: No
[2025-04-04 12:45] VITALS: BP 96/46
[2025-04-04 15:00] VITALS: BP 104/43
[2025-04-04] MEDS: ZYRTEC 10 MG PO (21:10)
[2025-04-04 23:26] VITALS: BP 126/52
[2025-04-05 06:23] VITALS: BMI 25.8
[2025-04-05 07:05] VITALS: BP 113/49
[2025-04-05 07:55] LABS: Hematocrit 30.3 % (39.0-52.0); Hemoglobin 9.4 g/dL (13.0-18.0); Mean Corpuscular Hgb 29.8 pg (27.0-31.0); Mean Corpuscular Volume 96.2 fL (80.0-94.0); Mean Platelet Volume 9.9 fL (7.4-10.4); Platelet Count 250 10^3/uL (130-400); Red Blood Cell Count 3.15 10^6/uL (4.70-6.10); Red Cell Dist. Width 18.3 % (11.5-14.5); White Blood Cell Count 7.8 10^3/uL (4.8-10.8)
[2025-04-05] MEDS: ProAmatine 10 MG PO ×2 (08:22→11:38)
[2025-04-05] MEDS: PACERONE 200 MG PO (08:22)
[2025-04-05] MEDS: ROBITUSSIN 200 MG PO (08:22)
[2025-04-05] MEDS: PROTONIX 40 MG PO (08:22)
[2025-04-05 08:29] LABS: Blood Urea Nitrogen 29 mg/dl (9-20); Carbon Dioxide 25 mmol/L (22-30); Chloride 104 mmol/L (98-107); Estimated Creatinine Clearance 11 ml/min; Glucose 101 mg/dl (70-99); Potassium 4.6 mmol/L (3.5-5.1); Sodium 139 mmol/L (135-145); eGFR 12.46
--- NOTE | 2025-04-05 08:57 | PHA.KIN.INIT ---
Assessment / Plan
- Assessment
Renal Function: Patient has ESRD, on chronic Hemodialysis
Hemodialysis Schedule: TThSa
Patient to get pre-HD level on 04/06. If level is <2, a dose of 110mg will be given. If level is >2 dose will be held. Then reduce to 75mg post dialysis.
Initial Pharmacokinetics Note
- -
Patient Age: 85
Patient Sex: Male
Antibiotic: Gentamicin
Antibiotic Day #: 1
Indication: Genito-Urinary Tract
Requesting Provider: Dr. Sheets
Pertinent Antimicrobial Allergies:
NKDA
Height / Weight:
Height 5 ft 7 in
Actual Weight 74.571 kg
- Vital Signs / Lab results
Temp Pulse Resp BP Pulse Ox
98.8 F 62 17 113/49 96
04/05/25 07:05 04/05/25 07:05 04/05/25 07:05 04/05/25 08:22 04/05/25 07:05
Maximum Temperature:
Lab Results - Hematology
04/03/25 04/05/25
07:36 07:37
WBC 7.7 7.8
Lab Results - Chemistry
04/03/25 04/05/25
07:36 07:37
BUN 29 H 29 H
Creatinine 4.7 H* 4.4 H*
Estimated Creat Clear 11 11
Historical Micro:
Concomitant Antimicrobials:
--- NOTE | 2025-04-05 09:20 | W.PN.NEPH.PH ---
Today's Communication / Plan
-
HD tomorrow
Assessment/Plan
-
Assessment:
symptomatic anemia
Ongoing hematuria while patient is on Eliquis.
Right ureteral stent s/p exchange Q2-3m
ESRD TTS at [facility]
PAF on anticoagulation and amiodarone
Anemia of CKD
Chronic hypotension prn midodrine
History prostate cancer locally invasive with history prostatectomy/XRT/hormonal therapy
History ureteral reimplantation
Radiation cystitis
AAA repair 2002
Right total hip replacement
History of horseshoe kidney with nephrolithiasis and chronic hydronephrosis contributing to ESRD
Right upper extremity AV fistula
Plan:
A/w symp anemia = post transfuse
AC on hold s/p stent exchange
LENIN with dialysis
ESBL E. coli UTI = discussed with ID/gentamicin TTS postdialysis
EDW 74.5 kg
No acute for no acute need for dialysis today
-
-
Date of Service: April 05, 2025
CC / HPI / ROS
-
Chief Complaint:
Hematuria
History of Present Illness:
Presents with hematuria weakness and UTI. ESRD TTS
hgb up to 9.4
reports further extension of stent out of urethra
BP stable
on gentamicin
Review of Systems:
No chest pain shortness of breath.
Continues to have hematuria but improving
no more fever
Labs
-
Labs:
WBC 7.8 10^3/uL (4.8-10.8) 04/05/25 07:37
RBC 3.15 10^6/uL (4.70-6.10) L 04/05/25 07:37
Hgb 9.4 g/dL (13.0-18.0) L 04/05/25 07:37
Hct 30.3 % (39.0-52.0) L 04/05/25 07:37
Plt Count 250 10^3/uL (130-400) 04/05/25 07:37
Sodium 139 mmol/L (135-145) 04/05/25 07:37
Potassium 4.6 mmol/L (3.5-5.1) 04/05/25 07:37
Chloride 104 mmol/L (98-107) 04/05/25 07:37
Carbon Dioxide 25 mmol/L (22-30) 04/05/25 07:37
BUN 29 mg/dl (9-20) H 04/05/25 07:37
Creatinine 4.4 mg/dL (0.7-1.3) H* 04/05/25 07:37
eGFR 12.46 04/05/25 07:37
Glucose 101 mg/dl (70-99) H 04/05/25 07:37
Calcium 8.0 mg/dl (8.4-10.2) L 04/05/25 07:37
Albumin 3.9 g/dl (3.5-5.0) 03/31/25 09:44
Physical Exam
-
Vital Signs:
Vital Signs
Temp Pulse Resp BP Pulse Ox
98.8 F 62 17 113/49 96
04/05/25 07:05 04/05/25 07:05 04/05/25 07:05 04/05/25 08:22 04/05/25 07:05
Cardiovascular:: Regular rate and rhythm
Respiratory:: Bilateral: CTA
Lung Excursion:: Normal
Abdomen:: Nontender and Soft
Bowel Sounds:: Normal
Extremity Edema:: None: Bilateral:
--- NOTE | 2025-04-05 10:50 | W.PN.ID1 ---
Date of Service
Date of Service: April 05, 2025
Today's Communication
Continue Gentamicin 110 mg IV qTuThSat with dialysis, through 04/15/25.
Check gent level pre-HD on 04/10. If gent level >2, hold one dose, then reduce dose to 75mg IV Tu/Th/Sat.
Assessment / Plan
# MDR ESBL E.coli UTI (noted during cystoscopy)
# Fever - resolved
# Gross hematuria from UTI vs radiation cystitis, improving
# Blood loss anemia
# ESRD on HD
# hx Nephrolithiasis/chronic obstructive uropathy with chronic right ureteral stent
# hx Metastatic prostate cancer s/p rad prostatectomy, XRT and hormone therapy
- s/p right ureter stent change 03/31/25
- Last dose ertapenem 04/02/25 (d3)
- Received gentamicin load 150mg IV x 1 after HD (04/03)
- to receive Gent 110 mg IV qTuThSat with dialysis, through 04/15/25.
- Check gent level pre-HD on 04/10. If gent level >2, hold one dose, then reduce dose to 75mg IV Tu/Th/Sat.
- Infusion script for dialysis placed in chart and informed case briefer.
- Continue contact isolation
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
ESRD�HD via RUE AV fistula
HTN
Paroxysmal A-fib
Metastatic prostate cancer s/p rad prostatectomy, XRT and hormone therapy
Radiation cystitis
Horseshoe kidney
Nephrolithiasis/chronic obstructive uropathy with chronic right ureteral stent
Left ureteral stricture
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
AAA repair
Hiatal hernia repair
Right hip replacement s/p fall with fracture s/p revision/ORIF at [place] (09/28)
Chief Complaint
-: Fever, UTI and Bacteremia
Subjective / Review of Systems
Hematuria has decreased.
Vital Signs / Physical Exam
Vital Signs
Vital Signs
Temp Pulse Resp BP Pulse Ox
98.8 F 62 17 113/49 96
04/05/25 07:05 04/05/25 07:05 04/05/25 07:05 04/05/25 08:22 04/05/25 09:43
Physical Exam
Constitutional: No Acute Distress
Cardiovascular: Regular Rate and S1/S2
Pulmonary: Clear
Gastrointestinal: Non Tender, Non Distended and Normal Bowel Sounds
Neurological: AO x 3
Objective Data
Lab Data
Lab Results
04/05/25 07:37
04/05/25 07:37
PT 14.8 Sec (11.4-14.6) H 03/31/25 09:44
INR 1.11 03/31/25 09:44
APTT 41.9 Sec (23.4-35.0) H 03/31/25 09:44
Estimated Creat Clear 11 ml/min 04/05/25 07:37
Total Bilirubin 0.7 mg/dl (0.2-1.3) 03/31/25 09:44
AST 25 U/L (17-59) 03/31/25 09:44
ALT 14 U/L (0-50) 03/31/25 09:44
Alkaline Phosphatase 117 U/L (38-126) 03/31/25 09:44
Most recent labs reviewed.
Micro Results:
03/31/25 16:52 Urine Culture - Final
Urine Escherichia coli - ESBL
Urine Culture Final 04/02/25-1049
CC: Greater than 100,000 CFU/ML Escherichia coli - ESBL
Organism 1 Escherichia coli - ESBL
1. Escherichia coli - ESBL
M.I.C. RX
--------- ---
Amoxicillin/Potas. Clavulanate 16/8 I
Ampicillin >16 R
Ampicillin/Sulbactam >16/8 R
Aztreonam 16 R
Cefazolin >16 R
Cefepime >16 R
Ceftazidime 16 R
Ceftriaxone >2 R
Ertapenem <=0.5 S
Ciprofloxacin >2 R
Gentamicin <=2 S
Meropenem <=1 S
Nitrofurantoin-Urine Only <=32 S
Piperacillin/Tazobactam <=8 S
Tetracycline >8 R
Tobramycin 4 S
Trimethoprim/Sulfamethoxazole >2/38 R
--- NOTE | 2025-04-05 13:24 | CM ---
CM following re: discharge planning.
Reviewed pt's chart, met with pt and pt's spouse at bedside.
According to pt most likely will be discharged today. Both pt and his spouse are aware, expressed their agreement and spouse stated she will transport her home. IMM reviewed, placed on chart, pt has a copy.
Pt and OT evaluations noted - home PT/OT recommended. Both pt and his spouse are aware, expressed their agreement and they preferred [facility] instead of [facility]. A referral to V[facility] made.
Pt lives with spouse in a 2SH, 2 steps to enter, has 3 supportive children, ambulates with a walker, has stair glide, grab bars. Pt was at [facility] acute rehab and known to [facility]. Pt is on HD, T, Th and Sat, [facility], chair time 9:00
a.m. Pt's spouse stated she transports the pt to and from HD treatment.
CM faxed pt's clinical with flow sheets and a script for antibiotic to [facility].
Please fax discharge instructions to [facility] at [phone]
Please fax discharge instructions to [facility] at [phone]
D/C plan: home with [facility] and resumption of outpatient HD treatment at [facility].
CM will follow with discharge plan updates as hospitalization progresses
--- NOTE | 2025-04-05 13:55 | W.DS.TRANS ---
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
-
Discharge Instructions:
Discharge Diagnosis/Procedures Hemorrhagic cystitis
Acute blood loss anemia
ESRD
Diet Regular
Instructions:
Stand-Alone Forms:
Changes to Home Medications: Yes
Discharge Medications:
DC Medications w/original date entered in [facility]
amiodarone 200 mg tablet 200 mg PO DAILY Arrhythmia 10/07/22
apixaban 2.5 mg tablet (Eliquis) 2.5 mg PO BID Blood clot prevention/tx #30 tabs 05/03/23
Held on 04/05/25. Instructions: Resume on 04/12/25.
esomeprazole magnesium 40 mg capsule,delayed release (Nexium) 20 mg PO DAILY Gastrointestinal Issue 12/20/23
cetirizine 10 mg tablet (Zyrtec) 10 mg PO HS 01/07/25
guaifenesin 100 mg/5 mL oral liquid 200 mg PO BID 01/07/25
midodrine 10 mg tablet 10 mg PO TID 03/31/25
sennosides 8.6 mg-docusate sodium 50 mg tablet (Senna Plus) 1 tab-cap PO DAILYPRN PRN CONSTIPATION 03/31/25
GENTAMICIN Pharmacy to Dose 1 each As Directed mls/hr IV PER PROTOCOL 04/05/25
Home Medication Changes
Holding Eliquis
Pending Results: No
[2025-04-05 14:25] VITALS: BP 128/53
--- NOTE | 2025-04-05 14:57 | VNURNOTE ---
Home Health Liaison met with patient and spouse at bedside to discuss [facility] nurse/therapy, visits, schedule and homebound status. Patient is agreeable and understands that visits at home will be 2-3 x per week to assess and teach medical management.
Patient declining VN- only interested in PT, OT at home. Patient is aware that [facility] will contact them for start of care in 1-2 days after discharge from .
[facility] referral completed in [facility].
== END 2025-04-05 15:03 | disposition home health service (06) | DRG 659 ==
LOC: 2 NORTH 14:46
PROVIDERS: Internal Medicine; Internal Medicine Nephrology; ADMITTING PHYSICIAN Internal Medicine; CONSULT PHYSICIAN Internal Medicine; CONSULT PHYSICIAN Internal Medicine Infectious Disease; CONSULT PHYSICIAN Specialist; EMERGENCY PHYSICIAN Emergency Medicine; FAMILY PHYSICIAN Family Medicine
PROC: 30233N1 Transfusion of Nonautologous Red Blood Cells into Peripheral Vein, Percutaneous Approach (ICD-10-PCS; 2025-03-31)
PROC: 0T768DZ Dilation of Right Ureter with Intraluminal Device, Via Natural or Artificial Opening Endoscopic (ICD-10-PCS; 2025-04-01)
PROC: 5A1D70Z Performance of Urinary Filtration, Intermittent, Less than 6 Hours Per Day (ICD-10-PCS; 2025-04-01)
PROC: 0TP98DZ Removal of Intraluminal Device from Ureter, Via Natural or Artificial Opening Endoscopic (ICD-10-PCS; 2025-04-01)
PROC: BT1D1ZZ Fluoroscopy of Right Kidney, Ureter and Bladder using Low Osmolar Contrast (ICD-10-PCS; 2025-04-01)
DX: N30.41 Irradiation cystitis with hematuria (principal); N18.6 End stage renal disease; N13.1 Hydronephrosis with ureteral stricture, not elsewhere classified; Z16.24 Resistance to multiple antibiotics; I48.20 Chronic atrial fibrillation, unspecified; Z16.12 Extended spectrum beta lactamase (ESBL) resistance; I12.0 Hypertensive chronic kidney disease with stage 5 chronic kidney disease or end stage renal disease; D50.0 Iron deficiency anemia secondary to blood loss (chronic); D63.1 Anemia in chronic kidney disease; Z79.01 Long term (current) use of anticoagulants; I48.0 Paroxysmal atrial fibrillation; Z99.2 Dependence on renal dialysis; I95.89 Other hypotension; Y84.2 Radiological procedure and radiotherapy as the cause of abnormal reaction of the patient, or of later complication, without mention of misadventure at the time of the procedure; Z85.46 Personal history of malignant neoplasm of prostate; Z87.440 Personal history of urinary (tract) infections; Z86.79 Personal history of other diseases of the circulatory system; Z96.641 Presence of right artificial hip joint; Q63.1 Lobulated, fused and horseshoe kidney; Z92.3 Personal history of irradiation; B96.20 Unspecified Escherichia coli [E. coli] as the cause of diseases classified elsewhere; Z87.891 Personal history of nicotine dependence; Z79.899 Other long term (current) drug therapy; K59.00 Constipation, unspecified; Z86.19 Personal history of other infectious and parasitic diseases; Z87.442 Personal history of urinary calculi; Z90.79 Acquired absence of other genital organ(s)
CPT/HCPCS: 74018; 74420; 76000; 80048; 80053; 81003; 81015; 85025; 85027; 85610; 85730; 86850; 86900; 86901; 86902; 86920; 86922; 87077; 87086; 87186; 97116; 97162; 99285; 99406; A4300; C2617; G0257; J1335; P9016; P9047; Q5106

== ENCOUNTER → 2025-05-24 11:05 | Outpatient (REF) | payer MEDICARE, SELFPAY ==
[2025-05-24 11:38] LABS: Urine Character Bloody (Clear)
[2025-05-24 11:58] LABS: Urine Red Blood Cell >100 /HPF (0-2)
== END ==
LOC: REG 11:05
PROVIDERS: ATTENDING PHYSICIAN Specialist; FAMILY PHYSICIAN Family Medicine
DX: N39.0 Urinary tract infection, site not specified (principal)
CPT/HCPCS: 81003; 81015; 87086

== ENCOUNTER → 2025-06-25 14:21 | Outpatient (REF) | payer MEDICARE, SELFPAY ==
[2025-06-25 15:40] LABS: Urine Character Cloudy (Clear)
[2025-06-25 19:20] LABS: Urine Red Blood Cell 80-90 /HPF (0-2); Urine Squamous Cell 0-2 /LPF (Few); Urine White Cell 90-100 /HPF (0-5)
== END ==
LOC: REG 14:21
PROVIDERS: ATTENDING PHYSICIAN Specialist; FAMILY PHYSICIAN Family Medicine; OTHER PHYSICIAN Internal Medicine; REFERRING PHYSICIAN Nurse Practitioner Acute Care
DX: N39.0 Urinary tract infection, site not specified (principal)
CPT/HCPCS: 81003; 81015; 87077; 87086; 87186

== ENCOUNTER → 2025-07-07 12:57 | Outpatient (REF) | payer MEDICARE, SELFPAY | LOC: REG 12:57 | PROVIDERS: ATTENDING PHYSICIAN Internal Medicine Infectious Disease; FAMILY PHYSICIAN Family Medicine; REFERRING PHYSICIAN Specialist | DX: R31.0 Gross hematuria (principal) | CPT/HCPCS: 87086 ==

== ENCOUNTER 2025-07-16 03:59 | Emergency (ER) | payer MEDICARE, SELFPAY ==
[2025-07-16 04:08] VITALS: BP 113/60
[2025-07-16] MEDS: MACROBID 100 MG PO (05:48)
--- NOTE | 2025-07-16 05:52 | ED.GENMED ---
History of Present Illness
General
Chief Complaint: Male Genito-Urinary Symptoms
Source: patient and spouse
Exam Limitations: none
Time Seen by Provider: 07/16/25 04:15
Nursing documentation reviewed up to this point in time: agreed with
History of Present Illness
History of Present Illness:
Note:
CHIEF COMPLAINT(S)
Inability to urinate since late .
HISTORY OF PRESENT ILLNESS
The patient is an 85-year-old male with a history of urinary issues, who presents with an inability to urinate since late . The patient states that he was advised by his urologist to go to the emergency department if he could not urinate
prior to the scheduled procedure to replace his catheter on the upcoming Saturday. The urologists office was contacted at three in the morning, but there was no response. The patients urologist, Dr. Cartagena, is expected to replace the catheter.
PHYSICAL EXAM
General: Alert, no acute distress.
Skin: Warm, dry.
Head: Normocephalic, atraumatic.
Neck: Supple, trachea midline.
Eyes, Ears, Nose, Mouth, and Throat: Oral mucosa moist.
Cardiovascular: Normal peripheral perfusion, no edema.
Respiratory: Respirations are non-labored.
Gastrointestinal: Abdomen nondistended.
Back: Normal range of motion, normal alignment.
Musculoskeletal: Normal range of motion, normal strength.
Neurological: Alert and oriented to person, place, time, and situation, no focal neurological deficit observed.
Psychiatric: Cooperative, appropriate mood and affect.
PLAN
Contact the patient�s urologist to discuss the possibility of earlier intervention or alternative management options.
DIFFERENTIAL DIAGNOSIS
The Differential Diagnosis includes, in no particular order and is not limited to:
1. Catheter blockage or malfunction
2. Acute urinary retention
3. Urinary tract infection
4. Benign prostatic hyperplasia (BPH)
5. Bladder stones
6. Neurogenic bladder
7. Medication side effects
8. Prostate cancer
9. Urethral stricture
10. Post-surgical complication
Disposition:
SUMMARY OF ENCOUNTER
The patient, an 85-year-old male with a history of urinary issues, presented to the emergency department with an inability to urinate since late . His urologist, Dr. Jaiden Marcelo, was consulted and recommended treatment with nitrofurantoin
(Macrobid) 100 mg twice daily for seven days. A Brewster catheter was not recommended at this time. The patient is advised to maintain his upcoming outpatient appointment for further evaluation and management.
DISPOSITION
Discharge to home.
MANAGEMENT OF THE PATIENTS CARE WAS DISCUSSED WITH
The patients care was discussed with Dr. Jaiden Marcelo, a urologist familiar with the patient.
PLAN
The plan includes treatment with nitrofurantoin (Macrobid) 100 mg twice daily for seven days and ensuring the patient keeps his outpatient appointment with the urologist for further evaluation and to assess any further intervention needs.
PATIENT EDUCATION AND COUNSELING
The patient was instructed to take nitrofurantoin (Macrobid) as prescribed and to maintain his scheduled outpatient appointment with the urologist for follow-up care.
FOLLOW-UP INSTRUCTIONS
The patient should keep his outpatient appointment with his urologist, as discussed.
MEDICATION RECONCILIATION
Nitrofurantoin (Macrobid) 100 mg, taken twice daily for seven days, was prescribed.
MEDICAL DECISION MAKING
-Complexity of Data Reviewed: Chronic conditions affecting care include the patients history of urinary issues. Differential diagnosis includes catheter blockage or malfunction, acute urinary retention, urinary tract infection, benign prostatic
hyperplasia (BPH), bladder stones, neurogenic bladder, medication side effects, prostate cancer, urethral stricture, and post-surgical complication.
-Data:
Category 3: Discussion of management with Dr. Jaiden Marcelo, the urologist familiar with the patient, informed the treatment decision and discharge plan.
DIAGNOSIS
Acute urinary retention, recommend follow-up with a urologist (ICD-10: R33.8).
Past History
Past History
ED Past Medical History: Arrthythmia (Atrial fibrillation), Cancer (Metastatic prostate), HTN, Renal failure and Other (UTI, anemia, r ureteral fibrosis 2 XRT, Horseshoe kidney, Kidney stones)
ED Past Surgical History: Orthopedic (Right hip fracture), Urological (R ureteral stent 11/2020) and Other (AAA repair, Hiatel hernia repair ,Right fistula started)
Patient has exhibited threatening behavior?: No
PSI?: No
Social History
Tobacco: Former smoker
Alcohol: Occasional
Personal:
Living: with family
Family History
Family History: Other (Noncontributory)
Phy Exam
Physical Exam
Physical Exam:
.
Course
Orders/Labs/Results
Orders:
Orders
07/16/25 05:29
Urinalysis Reflex To Culture Urgent
07/16/25 05:38
Nitrofurantoin Monohydrate [Macrobid] 100 mg PO NOW STA
07/16/25 05:50
Complete Blood Count/With Diff Urgent
Comprehensive Metabolic Panel Urgent
Tamsulosin [Flomax] 0.4 mg PO NOW STA
07/16/25 05:51
Prothrombin Time Urgent
Vital Signs
Initial and Last Documented VS:
Initial Vital Signs
Temp Pulse Resp BP Pulse Ox
97.4 F 92 18 113/60 98
07/16/25 04:08 07/16/25 04:08 07/16/25 04:08 07/16/25 04:08 07/16/25 04:08
Last Documented Vital Signs
Temp Pulse Resp BP Pulse Ox
97.4 F 92 18 113/60 98
07/16/25 04:08 07/16/25 04:08 07/16/25 04:08 07/16/25 04:08 07/16/25 04:08
*Pulse Oximetry
SaO2: 98
Oxygen Mode of Delivery: Room air
Patient hypoxic: no
*Critical Care Note
Total Time (30-74mins, 75-104mins- exclusive of procedures): Not Applicable
ED Attending Note
-
Portions of this chart may have been created with voice recognition software.� Occasional wrong word or��sound alike� substitutions may have occurred due to the inherent limitations of voice recognition software.
Discharge Plan
Departure
Patient Disposition: Home (Routine Discharge)
Date of Disposition: 07/16/25
Time of Disposition: 05:52
Patient with high blood pressure during this ER visit?: No
Discharge Problem:
Acute urinary retention, Dislodged urinary stent
Instructions: Urinary Retention (DC), BLOOD PRESSURE
Prescriptions:
New
tamsulosin [Flomax] 0.4 mg capsule
0.4 mg PO DAILY Qty: 7 0RF
nitrofurantoin monohyd/m-cryst [Macrobid] 100 mg capsule
100 mg PO Q12H 7 Days Qty: 14 0RF
No Action
amiodarone 200 mg Tablet
200 mg PO DAILY
Eliquis 2.5 MG tablet
2.5 mg PO BID Qty: 30 0RF
esomeprazole magnesium [Nexium] 40 mg Capsule,Delayed Release(Dr/Ec)
20 mg PO DAILY
cetirizine [Zyrtec] 10 mg Tablet
10 mg PO HS
guaifenesin 100 mg/5 mL Liquid
200 mg PO BID
sennosides-docusate sodium [Senna Plus] 8.6-50 mg Tablet
1 tab-cap PO DAILYPRN PRN (Reason: CONSTIPATION)
midodrine 10 mg Tablet
10 mg PO TID
GENTAMICIN Pharmacy to Dose 1 EACH
Pharmacy To Prepare [Call Pharmacy To Prepare] 0 ML
As Directed mls/hr IV PER PROTOCOL
Ordered By: Zaid Worthington MD
Last Taken: Unknown
Protocol: None
Protocol Text:
PHARMACY TO DOSE
DOSING PER LEVEL AFTER DIALYSIS
Referrals:
Haile Mac DO [Family Provider, Family Practice]
Activity Restrictions/Additional Instructions:
We were able to draw the labs required for your preop testing for the stent placement on Saturday. Please do not take your Eliquis for 2 days prior to the surgery.
As discussed, return to the ER with any changing or worsening of symptoms.
Thank You for choosing [facility].
It was a pleasure meeting you and taking part in your care. We hope for your continued healing and wellness.
Please read discharge instructions in their entirety. However, they are for general education and may not describe your exact diagnosis at discharge. Information on your ER visit and medical conditions were discussed with you along with appropriate
follow up information...
If indicated, please take your medications as instructed and indicated on discharge paperwork.
Please schedule a follow up appointment as directed. Call to schedule an appointment
Please return to the emergency department with ANY change in, persisting, or worsening of symptoms. If any of your symptoms do not improve, or persist, or become more severe within 6-12 hours, please return to the emergency department for further
care.
Please return to the emergency department if you develop a headache, neck pain/stiffness, fever greater than 100.4F, chest pain, shortness of breath, persistent nausea, vomiting, slurred speech, difficulty walking, numbness/tingling, weakness, signs
of infection or any other symptoms that are worrisome to you.
If you have any questions or concerns please do not hesitate to call the Hospital at .
Interventions
Interventions:
*Neglect/Abuse Screening Last Done: 07/16/25 04:30
ED-Male Genitourinary Assessment Last Done: 07/16/25 04:29
Discharge Date and Time
Print Language: SAMI
[2025-07-16] MEDS: FLOMAX 0.4 MG PO (05:53)
[2025-07-16 06:29] LABS: Hematocrit 33.3 % (39.0-52.0); Hemoglobin 10.7 g/dL (13.0-18.0); Mean Corp Hgb Conc. 32.1 g/dL (33.0-37.0); Mean Corpuscular Volume 87.2 fL (80.0-94.0); Nucleated Red Blood Cells % 0 % (-); Platelet Count 234 10^3/uL (130-400); Red Cell Dist. Width 17.1 % (11.5-14.5)
[2025-07-16 06:37] LABS: INR 0.92; PT 12.9 Sec (11.4-14.6)
[2025-07-16 06:59] LABS: ALT (SGPT) 14 U/L (0-50); AST (SGOT) 25 U/L (17-59); Albumin 4.0 g/dl (3.5-5.0); Alkaline Phosphatase 113 U/L (38-126); Blood Urea Nitrogen 19 mg/dl (9-20); Calcium 8.4 mg/dl (8.4-10.2); Carbon Dioxide 33 mmol/L (22-30); Chloride 94 mmol/L (98-107); Estimated Creatinine Clearance 15 ml/min; Glucose 99 mg/dl (70-99); Potassium 3.9 mmol/L (3.5-5.1); Sodium 136 mmol/L (135-145); Total Protein 7.5 g/dl (6.3-8.2); eGFR 17.60
== END 2025-07-16 06:19 | disposition home or self-care (01) ==
LOC: EMR 03:59
PROVIDERS: EMERGENCY PHYSICIAN Student in an Organized Health Care Education/Training Program; FAMILY PHYSICIAN Family Medicine
DX: R33.9 Retention of urine, unspecified (principal); T83.89XA Other specified complication of genitourinary prosthetic devices, implants and grafts, initial encounter; Y84.8 Other medical procedures as the cause of abnormal reaction of the patient, or of later complication, without mention of misadventure at the time of the procedure; I48.91 Unspecified atrial fibrillation; I12.9 Hypertensive chronic kidney disease with stage 1 through stage 4 chronic kidney disease, or unspecified chronic kidney disease; N18.9 Chronic kidney disease, unspecified; C61 Malignant neoplasm of prostate; C79.9 Secondary malignant neoplasm of unspecified site; Z87.891 Personal history of nicotine dependence
CPT/HCPCS: 99283; 80053; 85025; 85610

== ENCOUNTER 2025-07-20 06:22 | Day surgery (SDC) | payer MEDICARE, SELFPAY ==
[2025-07-20] VITALS (9 sets, daily range): BP systolic 107–126; BP diastolic 50–60; BMI 25.6
--- NOTE | 2025-07-20 14:04 | W.PN.URO.CBU ---
Today's Communication / Plan
-
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
Diagnosis
-
Date of Service: July 20, 2025
-
Patient Diagnosis:
rt ueretalobstruction s/p jj stent and dilationof bladder neck contratre
Post Op Day:
Subjective
-
no new complaints
Objective
-
Vital Signs
Temp Pulse Resp BP Pulse Ox
98.4 F 75 16 122/58 96
07/20/25 12:37 07/20/25 12:37 07/20/25 12:37 07/20/25 12:37 07/20/25 12:37
Review of Systems
-
: Dysuria and Difficulty Voiding
Physical Exam
-
General - well developed, well nourished, no acute distress
Chest - clear bilaterally
Abdomen - soft, non-tender, positive bowel sounds, no CVAT, no incisional pain or distention
Genitalia - normal
Rectal absent prostae
Skin - warm & dry with no rash
Neuro - AOx3, no motor deficits
Extremities - no clubbing, no cyanosis, no edema
Incision - clean, dry
Dressing - clean, dry, intact
Counseling
-
observation for sepsi
--- NOTE | 2025-07-20 14:07 | W.SUR.POST ---
Surgical Immediate Post Op
Note
Pre Op Diagnosis:rt uretral obstrcuction metstaic acp esrd
Post Op Diagnosis:
same and bladder neckcontracture
Procedure Performed:
cysto rt jj stent rt retrograe pyelogram and dilation bladder neck contractre
Primary Surgeon:
flashner
Secondary Surgeons:
ragam
Anesthesia: katin general
Estimated Blood Loss: 1
Fluids:
nss
Drains/Shunts:6 fr 24 cm jj stent
Specimens/Cultures:
Doppler/Duplex/Angio (Y/N):
Complications: 0
Operative Findings: tight bladder neck and obstructed rt kidney
--- NOTE | 2025-07-20 16:05 | PTCARENOTE ---
Patient admitted from [facility] post ureteroscopy with right stent placement.The patient has this done every three to four months.He denies any pain.Patient is alert and oriented.He is in his bed with the call berger in place.
[2025-07-20] MEDS: ELIQUIS 2.5 MG PO (21:49)
[2025-07-20] MEDS: ZYRTEC 5 MG PO (21:49)
[2025-07-21 03:09] VITALS: BP 121/55
[2025-07-21 04:18] VITALS: BMI 24.3
[2025-07-21 07:55] VITALS: BP 130/61
--- NOTE | 2025-07-21 08:06 | W.DCSUMMARY ---
Discharge Summary
Discharge Data
Date of Admission: 07/20/25
Date of Discharge: 07/21/25
Total time spent discharging patient (in min): 45
-
Pending Results: No
Hospital Course
the pt has a n obstructed rt kidney. we stents him and he was observed for infection and electrolyte problems overnight He remained stable
Discharge Plan
-
Patient Disposition: Home (Routine Discharge)
Discharge Diagnosis/Procedures: rt ureteral obstruction
Condition: Good
Referrals:
Dane Fernandez MD [Active, Urology]
Referral Note: call dr fernandez for follow up
UNKNOWN,NO INTERVIEW [Family Provider]
Prescriptions:
Continued
amiodarone 200 mg Tablet
200 mg PO DAILY
Eliquis 2.5 MG tablet
2.5 mg PO BID Qty: 30 0RF
esomeprazole magnesium [Nexium] 40 mg Capsule,Delayed Release(Dr/Ec)
20 mg PO DAILY
cetirizine [Zyrtec] 10 mg Tablet
10 mg PO HS
sennosides-docusate sodium [Senna Plus] 8.6-50 mg Tablet
1 tab-cap PO DAILYPRN PRN (Reason: CONSTIPATION)
midodrine 10 mg Tablet
10 mg PO TID PRN (Reason: low bp)
tamsulosin [Flomax] 0.4 mg capsule
0.4 mg PO DAILY Qty: 7 0RF
nitrofurantoin monohyd/m-cryst [Macrobid] 100 mg capsule
100 mg PO Q12H 7 Days Qty: 14 0RF
Discharge Date and Time
Print Language: UGANDAN
[2025-07-21] MEDS: PACERONE 200 MG PO (08:14)
[2025-07-21] MEDS: ELIQUIS 2.5 MG PO (08:14)
[2025-07-21] MEDS: PROTONIX 40 MG PO (08:14)
[2025-07-21 08:16] LABS: Hematocrit 29.2 % (39.0-52.0); Hemoglobin 9.5 g/dL (13.0-18.0)
[2025-07-21 11:36] VITALS: BP 139/70
--- NOTE | 2025-07-21 11:38 | CM ---
Reviewed the chart notes and spoke with the patient at the bedside. Patient resides with his spouse in a two story home with two steps to enter. The patient has a rolling walker and wheel chair on each level of the home. The patient has a
stairglide and shower rails in home. The patient has been to [facility] Acute Rehab. The patient receives HD T--Sa at [facility] with a chair time of 9am. Confirmed the patient's pharmacy of choice is the [facility]
continues to be available to patient/family and is monitoring medical plan for needs at discharge.
Plan: Discharge to home today. Spouse will provide transportation. No needs.
== END 2025-07-21 11:45 | disposition home or self-care (01) ==
LOC: SDS 06:22
PROVIDERS: ATTENDING PHYSICIAN Specialist
DX: C61 Malignant neoplasm of prostate (principal); C79.19 Secondary malignant neoplasm of other urinary organs; N13.5 Crossing vessel and stricture of ureter without hydronephrosis
CPT/HCPCS: 52344; 74420; 76000; 85014; 85018; 87077; 87086; 87186; A4300; C2617; J1580

== ENCOUNTER 2025-08-12 14:09 | Emergency (ER) | payer MEDICARE, SELFPAY ==
[2025-08-12 14:12] VITALS: BP 143/64
[2025-08-12 14:13] VITALS: BP 143/64
--- NOTE | 2025-08-12 14:38 | ED.GENMED ---
History of Present Illness
General
Chief Complaint: Vascular Access Problem
Source: patient
Time Seen by Provider: 08/12/25 14:14
History of Present Illness
History of Present Illness:
85-year-old male with past medical history of previous AAA rupture, atrial fibrillation, hypertension, chronic kidney disease (dialysis Saturday, , Saturday) presenting to the ER with EMS from his dialysis center due to persistent bleeding
from the cannulation site of his right upper extremity fistula. Patient states that he will often have some light bleeding for about 10 to 15 minutes following the procedure but never this bad. EMS placed a tourniquet which has the bleeding
currently under control. Patient is on 2-1/2 mg of Eliquis twice daily due to his A-fib history.
Past History
Past History
ED Past Medical History: Arrthythmia (Atrial fibrillation), Cancer (Metastatic prostate), HTN, Renal failure and Other (UTI, anemia, r ureteral fibrosis 2 XRT, Horseshoe kidney, Kidney stones)
ED Past Surgical History: Orthopedic (Right hip fracture), Urological (R ureteral stent 11/2020) and Other (AAA repair, Hiatel hernia repair ,Right fistula started)
Patient has exhibited threatening behavior?: No
PSI?: No
Social History
Tobacco: Former smoker
Alcohol: Occasional
Drug: None
Personal:
Living: with family
Family History
Family History: Other (Noncontributory)
Review of Systems
Review of Systems
All Other Systems: ROS reviewed and negative except as documented in HPI and ROS
Phy Exam
Physical Exam
Physical Exam:
GENERAL: Alert , in no apparent distress
EYE: conjunctiva clear
Head: Normocephalic atraumatic
NECK: Supple,
ENT: mmm.
LUNGS: no acute respiratory distress
NEUROLOGICAL: Alert and oriented
SKIN: Warm and dry, skin intact.
MUSCULOSKELETAL: Right upper extremity: Palpable thrill overlying the fistula, dressing in place but once removed bleeding resumed, more oozing than arterial spurting
PSYCH: Normal and appropriate interaction.
Scores
Heart Failure Risk
Heart Failure Risk Score: Not Applicable
Heart Score for Chest Pain Patients
STEMI patient?: Not applicable
Withdrawal Assessment of Alcohol
Withdrawal Assessment Completed?: Not applicable
Course
Orders/Labs/Results
Orders:
Orders
08/12/25 14:28
US Hemodialysis Graft Urgent
Comment:
Reason For Exam: bleeding RUE
Vital Signs
Initial and Last Documented VS:
Initial Vital Signs
Temp Pulse Resp BP Pulse Ox
97.4 F 81 18 143/64 100
08/12/25 14:12 08/12/25 14:12 08/12/25 14:12 08/12/25 14:12 08/12/25 14:12
Last Documented Vital Signs
Temp Pulse Resp BP Pulse Ox
97.6 F 64 20 118/60 97
08/12/25 15:58 08/12/25 16:30 08/12/25 16:30 08/12/25 16:30 08/12/25 16:30
Procedures
Laceration Closure
Right Upper Arm:
Size of Wound in cm: 0.3
Anesthesia: 1% Lidocaine with epi
Type of Closure: single layer closure
Skin Closure Material: 4-0 nylon
Number of sutures: 1
MDM/Problems Addressed
Differential Diagnosis Includes:
AV fistula complication
Anemia
Arterial Occlusion
MDM/Problems Addressed:
85-year-old male presenting to the ER for evaluation after he has experienced persistent bleeding to cannulation site of his AV fistula. Bleeding persisting despite treatment at the facility. I placed 1 [id number] stitch as above which
resulted in good hemostasis. I discussed with on-call vascular, Dr. Mendiola, will get US to eval dialysis fistula. Anticipate if no complications can be discharged home
*Radiology
Radiology exam reviewed: radiology read reviewed
*Pulse Oximetry
SaO2: 100
Oxygen Mode of Delivery: Room air
Patient hypoxic: no
*Critical Care Note
Total Time (30-74mins, 75-104mins- exclusive of procedures): Not Applicable
Patient Management
Escalation/DeEscalation of care consider admission/obs:
Ultrasound without any significant abnormalities. Patient remained stable, no further evidence of bleeding, stable for discharge home and aware of return precautions to the ER.
ED Attending Note
-
Portions of this chart may have been created with voice recognition software.� Occasional wrong word or��sound alike� substitutions may have occurred due to the inherent limitations of voice recognition software.
Discharge Plan
Departure
Patient Disposition: Home (Routine Discharge)
Date of Disposition: 08/12/25
Time of Disposition: 16:33
Patient with high blood pressure during this ER visit?: No
Discharge Problem:
Other complication of arteriovenous dialysis fistula
Instructions: Arteriovenous vascular access for hemodialysis
Prescriptions:
No Action
amiodarone 200 mg Tablet
200 mg PO DAILY
Eliquis 2.5 MG tablet
2.5 mg PO BID Qty: 30 0RF
esomeprazole magnesium [Nexium] 40 mg Capsule,Delayed Release(Dr/Ec)
20 mg PO DAILY
cetirizine [Zyrtec] 10 mg Tablet
10 mg PO HS
sennosides-docusate sodium [Senna Plus] 8.6-50 mg Tablet
1 tab-cap PO DAILYPRN PRN (Reason: CONSTIPATION)
midodrine 10 mg Tablet
10 mg PO TID PRN (Reason: low bp)
tamsulosin [Flomax] 0.4 mg capsule
0.4 mg PO DAILY Qty: 7 0RF
nitrofurantoin monohyd/m-cryst [Macrobid] 100 mg capsule
100 mg PO Q12H 7 Days Qty: 14 0RF
Referrals:
Haile Mac DO [Family Provider, Family Practice]
Interventions
Interventions:
*Risk Screen - Suicide Last Done: 08/12/25 14:12
*General Assessment Last Done: 08/12/25 14:12
*Neglect/Abuse Screening Last Done: 08/12/25 14:15
*ED- Fall Risk Assessment Last Done: 08/12/25 14:16
*ED COVID-19 Vaccine History Last Done: 08/12/25 14:16
*ED Influenza Vaccine History Last Done: 08/12/25 14:16
Discharge Date and Time
Print Language: ESTONIAN
[2025-08-12 15:56] VITALS: BP 127/57
[2025-08-12 16:00] VITALS: BP 113/70
[2025-08-12 16:30] VITALS: BP 118/60
== END 2025-08-12 16:50 | disposition home or self-care (01) ==
LOC: EMR 14:09
PROVIDERS: EMERGENCY PHYSICIAN Emergency Medicine; FAMILY PHYSICIAN Family Medicine
DX: T82.838A Hemorrhage due to vascular prosthetic devices, implants and grafts, initial encounter (principal); Y71.2 Prosthetic and other implants, materials and accessory cardiovascular devices associated with adverse incidents; I12.0 Hypertensive chronic kidney disease with stage 5 chronic kidney disease or end stage renal disease; N18.6 End stage renal disease; Z99.2 Dependence on renal dialysis; I48.91 Unspecified atrial fibrillation; Z79.01 Long term (current) use of anticoagulants; Z87.891 Personal history of nicotine dependence; Z85.46 Personal history of malignant neoplasm of prostate
CPT/HCPCS: 99284; 12001; 93990